=== PATIENT | male | born 1980 | race Two or more races ===

== ENCOUNTER 2017-11-13 16:05 | Inpatient (IN) | payer MEDICAID ==
[2017-11-13] VITALS (10 sets, daily range): BP systolic 106–128; BP diastolic 75–105
[~2017-11-13] VITALS: Ht 185.4 cm; Wt 81.6 kg
[2017-11-13] MEDS ORDERED: Pantoprazole Inj IV ONE (16:45)
[2017-11-13] MEDS ORDERED: Morphine Sulfate 4mg/ml Inj IVP ONE (17:30)
[2017-11-13] MEDS ORDERED: SandoSTATIN 50mcg Inj IVP ONE (17:30)
[2017-11-13] MEDS ORDERED: Octreotide Acetate 500 MCG in Sodium Chloride 500ML 499 ML IV SCH (17:30)
[2017-11-13 17:44] LABS: HEMATOCRIT 29.8 % (42.0-52.0); HEMOGLOBIN 10.3 G/DL (14.2-18.0); MEAN CORPUSCULAR VOLUME 94 FL (80-99); NEUTROPHILS % (AUTO) 86.2 % (45.0-75.0); PLATELET COUNT 67 K/UL (150-450); RED BLOOD COUNT 3.18 M/UL (4.70-6.10); RED CELL DISTRIBUTION WIDTH 18.4 % (11.6-14.8); WHITE BLOOD COUNT 3.6 K/UL (4.8-10.8)
[2017-11-13 17:45] LABS: BASOPHILS % (AUTO) 0.7 % (0.0-2.0); EOSINOPHILS % (AUTO) 1.5 % (0.0-3.0); LYMPHOCYTES % (AUTO) 7.5 % (20.0-45.0); MONOCYTES % (AUTO) 4.1 % (1.0-10.0)
[2017-11-13] MEDS ORDERED: cefTRIAXone 1 GM in NS 55 ML IVPB ONE (17:45)
[2017-11-13 17:51] LABS: INR 1.2 (0.9-1.1)
[2017-11-13 17:57] LABS: ANION GAP 9 mmol/L (5-15); BLOOD UREA NITROGEN 11 mg/dL (7-18); CALCIUM 8.8 MG/DL (8.5-10.1); CARBON DIOXIDE 27 MMOL/L (21-32); CHLORIDE 103 MMOL/L (98-107); POTASSIUM 3.5 MMOL/L (3.5-5.1); SODIUM 139 MMOL/L (136-145)
[2017-11-13 18:07] LABS: ALANINE AMINOTRANSFERASE 44 U/L (12-78); ALBUMIN 3.9 G/DL (3.4-5.0); ALBUMIN/GLOBULIN RATIO 1.3 (1.0-2.7); ALKALINE PHOSPHATASE 119 U/L (46-116); ASPARTATE AMINO TRANSFERASE 53 U/L (15-37); BILIRUBIN,TOTAL 6.1 MG/DL (0.2-1.0); CREATINE KINASE 64 U/L (26-308)
[2017-11-13 18:09] LABS: BILIRUBIN,DIRECT 1.4 MG/DL (0.0-0.3)
[2017-11-13] MEDS ORDERED: ZOFRAN4 M3 ORAL (19:36)
[2017-11-13] MEDS ORDERED: FERROUS SULFAT325 MG ORAL (19:36)
[2017-11-13] MEDS ORDERED: VIREAD300 MG ORAL (19:36)
[2017-11-13] MEDS ORDERED: LACTULOSE20 GM/301 ORAL (19:36)
[2017-11-13] MEDS ORDERED: PROTONIX IV40 MG IV (19:36)
[2017-11-13] MEDS ORDERED: AMBIEN5 MG ORAL (19:36)
[2017-11-13] MEDS ORDERED: PROPRANOLOL HCL20 MG ORAL (19:36)
[2017-11-13 19:57] LABS: APPEARANCE,URINE CLEAR; BILIRUBIN, URINE NEGATIVE (NEGATIVE); GLUCOSE, URINE (UA) 1+ (NEGATIVE); KETONES,URINE NEGATIVE (NEGATIVE); LEUKOCYTE ESTERASE ,URINE 1+ (NEGATIVE); NITRITE,URINE NEGATIVE (NEGATIVE); PH,URINE 5 (4.5-8.0); PROTEIN,URINE NEGATIVE (NEGATIVE); UROBILINOGEN,URINE 4 MG/DL (0.0-1.0)
[2017-11-13 19:59] LABS: COLOR,URINE AMBER
--- NOTE | 2017-11-13 20:41 | Emergency Room Report ---
History of Present Illness General Chief Complaint: Gastrointestinal Bleed Source: Patient Present Illness HPI This patient has a history of alpha-1 antitrypsin deficiency. This has caused him to develop cirrhosis and splenomegaly. 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 He has a history of esophageal varices and has undergone a TIPS procedure. He has recurrent GI bleeds related to his esophageal varices. He states that he just moved from [place] to [place]. He states that he has no physicians in [place]. He is in [place] visiting. Today he complains of pain in his abdomen that started last night. He states he also has had some bloody emesis and bright red blood rectally. He states that he has had a history of esophageal varices banding. He states that he has been advised to have his spleen removed. He states that he has been busy with life and just has not scheduled the surgery. He has no other complaints. Allergies: Coded Allergies: ADHESIVE TAPE (Verified Allergy, Unknown, 11/13/17) BEE VENOM PROTEIN (HONEY BEE) (Verified Allergy, Unknown, 11/13/17) PENICILLINS (Verified Allergy, Unknown, 11/13/17) Patient History Past Medical History: see triage record, other - cirrhosis, alpha-1 antitrypsin deficiency Past Surgical History: other - TIPS Social History: Denies: smoking, alcohol use, drug use Reviewed Nursing Documentation: PMH: Agreed; PSxH: Agreed Review of Systems All Other Systems: negative except mentioned in HPI Physical Exam Vital Signs Date Time Temp Pulse Resp B/P (MAP) Pulse Ox O2 Delivery O2 Flow Rate FiO2 11/13/17 16:07 97.7 111 18 133/90 96 Room Air 97.7 Sp02 EP Interpretation: reviewed, normal General Appearance: no apparent distress, alert, GCS 15, non-toxic Head: normocephalic, atraumatic Eyes: bilateral eye normal inspection, bilateral eye PERRL ENT: hearing grossly normal, normal pharynx, no angioedema, normal voice Neck: full range of motion, supple/symm/no masses Respiratory: chest non-tender, lungs clear, normal breath sounds, no respiratory distress, no retraction, no accessory muscle use, speaking full sentences Cardiovascular #1: regular rate, rhythm, no edema Gastrointestinal: normal bowel sounds, no guarding, no rebound, distended, tenderness - Diffusely Rectal: other - BRBPR Musculoskeletal: back normal, gait/station normal, normal range of motion, non- tender Neurologic: alert, oriented x3, responsive, motor strength/tone normal, sensory intact, speech normal Psychiatric: judgement/insight normal, memory normal, mood/affect normal, no suicidal/homicidal ideation Reflexes: 3+ bicep (R), 3+ bicep (L), 3+ tricep (R), 3+ tricep (L), 3+ knee (R) , 3+ knee (L) Skin: normal color, no rash, warm/dry, well hydrated Lymphatic: no adenopathy Medical Decision Making Diagnostic Impression: Primary Impression: Gastrointestinal hemorrhage Additional Impressions: Cirrhosis Splenomegaly Esophageal varices ER Course This patient presents with GI bleed. He has a known history of cirrhosis and has undergone a TIPS procedure. He has recurrent GI bleed secondary to esophageal varices. He was stable here in the emergency department with a normal blood pressure. I did give this patient octreotide bolus and put him on octreotide drip as a precaution. The patient states that he decompensates rapidly with his esophageal varices. Especially because he has the thrombocytopenia related to the splenomegaly. This patient is admitted to the ICU for concern that he has a GI bleed, thrombocytopenia and could deteriorate very rapidly. This patient is critically ill. This patient required complex medical decision- making, aggressive intervention, extensive laboratory workup and monitoring. Critical care time: 40 minutes. Laboratory Tests Test 11/13/17 17:09 11/13/17 18:24 White Blood Count 3.6 K/UL (4.8-10.8) L Red Blood Count 3.18 M/UL (4.70-6.10) L Hemoglobin 10.3 G/DL (14.2-18.0) L Hematocrit 29.8 % (42.0-52.0) L Mean Corpuscular Volume 94 FL (80-99) Mean Corpuscular Hemoglobin 32.5 PG (27.0-31.0) H Mean Corpuscular Hemoglobin Concent 34.8 G/DL (32.0-36.0) Red Cell Distribution Width 18.4 % (11.6-14.8) H Platelet Count 67 K/UL (150-450) L Mean Platelet Volume 6.0 FL (6.5-10.1) L Neutrophils (%) (Auto) 86.2 % (45.0-75.0) H Lymphocytes (%) (Auto) 7.5 % (20.0-45.0) L Monocytes (%) (Auto) 4.1 % (1.0-10.0) Eosinophils (%) (Auto) 1.5 % (0.0-3.0) Basophils (%) (Auto) 0.7 % (0.0-2.0) Prothrombin Time 12.2 SEC (9.30-11.50) H Prothrombin Time INR 1.2 (0.9-1.1) H PTT 23 SEC (23-33) Sodium Level 139 MMOL/L (136-145) Potassium Level 3.5 MMOL/L (3.5-5.1) Chloride Level 103 MMOL/L (98-107) Carbon Dioxide Level 27 MMOL/L (21-32) Anion Gap 9 mmol/L (5-15) Blood Urea Nitrogen 11 mg/dL (7-18) Creatinine 1.0 MG/DL (0.55-1.30) Estimate Glomerular Filtration Rate > 60 mL/min (>60) Glucose Level 156 MG/DL (74-106) H Calcium Level 8.8 MG/DL (8.5-10.1) Total Bilirubin 6.1 MG/DL (0.2-1.0) H Direct Bilirubin 1.4 MG/DL (0.0-0.3) H Aspartate Amino Transferase (AST) 53 U/L (15-37) H Alanine Aminotransferase (ALT) 44 U/L (12-78) Alkaline Phosphatase 119 U/L (46-116) H Total Creatine Kinase 64 U/L (26-308) Troponin I 0.000 ng/mL (0.000-0.056) Total Protein 6.9 G/DL (6.4-8.2) Albumin 3.9 G/DL (3.4-5.0) Globulin 3.0 g/dL Albumin/Globulin Ratio 1.3 (1.0-2.7) Lipase 114 U/L (73-393) Urine Color Bhavana Urine Appearance Clear Urine pH 5 (4.5-8.0) Urine Specific [place] 1.020 (1.005-1.035) Urine Protein Negative (NEGATIVE) Urine Glucose (UA) 1+ (NEGATIVE) H Urine Ketones Negative (NEGATIVE) Urine Occult Blood Negative (NEGATIVE) Urine Nitrite Negative (NEGATIVE) Urine Bilirubin Negative (NEGATIVE) Urine Ictotest Positive Urine Urobilinogen 4 MG/DL (0.0-1.0) H Urine Leukocyte Esterase 1+ (NEGATIVE) H Urine RBC 0-2 /HPF (0 - 0) H Urine WBC 2-4 /HPF (0 - 0) Urine Squamous Epithelial Cells None /LPF (NONE/OCC) Urine Bacteria Few /HPF (NONE) EKG Diagnostic Results Rate: normal Rhythm: NSR ST Segments: no acute changes Rhythm Strip Diag. Results EP Interpretation: yes Rate: 90's Rhythm: NSR, no PVC's, no ectopy CT/MRI/US Diagnostic Results CT/MRI/US Diagnostic Results : Imaging Test Ordered: US Abdomen, CT abd/pelvis Impression Splenomegaly, inhomogenous liver, shut patent. See official report. CT abd/pelvis: Cirrhosis/chronic liver disease with poor stigmata of portal hypertension including splenomegaly and multiple portosystemic varices. TIPS noted. Patency of the TIPS is not elucidated on this exam. Evidence of previous thromboembolic coil treatment of varices. Gallstones Hypodensity in the spleen somewhat wedge-shaped may be an infarct. Radiopaque foci within the rectum. Query foreign body Other incidental findings as above Last Vital Signs Date Time Temp Pulse Resp B/P (MAP) Pulse Ox O2 Delivery O2 Flow Rate FiO2 11/13/17 19:20 93 15 106/75 97 Room Air 11/13/17 18:30 97.9 97.9 Disposition: ADMITTED INPATIENT Condition: Critical Referrals: NOT CHOSEN IPA/,REFERRING (PCP) GAUDENCIO CULVER D.O. November 13, 2017 20:41
[2017-11-13] MEDS ORDERED: FUROSEMIDE20 M1 ORAL (20:43)
[2017-11-13] MEDS: Octreotide Acetate 500 MCG in Sodium Chloride 500ML 499 ML IV SCH (20:45)
[2017-11-13] MEDS ORDERED: Isovue-300 100ml vial INJ PRN (20:45)
[2017-11-13] MEDS ORDERED: Morphine Sulfate 4mg/ml Inj IVP PRN (20:45)
[2017-11-14] VITALS (11 sets, daily range): BP systolic 107–136; BP diastolic 68–87
[2017-11-14] MEDS: Pantoprazole 80 MG in NS 250 ML IV SCH ×3 (01:34→17:44)
[2017-11-14] MEDS ORDERED: DiphenhydrAMINE 50mg/ml Inj IVP PRN ×2 (03:30→12:15)
[2017-11-14] MEDS: D5NS 1,000 ML IV SCH ×3 (04:45→22:54)
[2017-11-14] MEDS: Morphine Sulfate 4mg/ml Inj IVP PRN ×5 (04:46→21:15)
[2017-11-14 06:11] LABS: HEMATOCRIT 24.4 % (42.0-52.0); HEMOGLOBIN 8.9 G/DL (14.2-18.0); MEAN CORPUSCULAR VOLUME 94 FL (80-99); PLATELET COUNT 50 K/UL (150-450); RED CELL DISTRIBUTION WIDTH 18.5 % (11.6-14.8)
[2017-11-14 06:16] LABS: ANION GAP 8 mmol/L (5-15); BLOOD UREA NITROGEN 10 mg/dL (7-18); CALCIUM 8.9 MG/DL (8.5-10.1); CARBON DIOXIDE 26 MMOL/L (21-32); CHLORIDE 104 MMOL/L (98-107); CREATININE 0.8 MG/DL (0.55-1.30); POTASSIUM 3.8 MMOL/L (3.5-5.1); SODIUM 138 MMOL/L (136-145)
[2017-11-14 06:22] LABS: WHITE BLOOD COUNT 1.7 K/UL (4.8-10.8)
[2017-11-14 06:27] LABS: INR 1.2 (0.9-1.1)
[2017-11-14] MEDS: Octreotide Acetate 500 MCG in Sodium Chloride 500ML 499 ML IV SCH ×2 (06:45→17:08)
--- NOTE | 2017-11-14 07:46 | General Progress Note ---
Assessment/Plan Assessment/Plan [id number] Job ID -- thank you for consultation! Subjective Date patient seen: November 14, 2017 Allergies: Coded Allergies: ADHESIVE TAPE (Verified Allergy, Unknown, 11/13/17) BEE VENOM PROTEIN (HONEY BEE) (Verified Allergy, Unknown, 11/13/17) PENICILLINS (Verified Allergy, Unknown, 11/13/17) Objective Last 24 Hour Vital Signs Date Time Temp Pulse Resp B/P (MAP) Pulse Ox O2 Delivery O2 Flow Rate FiO2 11/14/17 06:37 98.2 87 20 125/81 98 Room Air 98.2 11/14/17 04:00 98.1 85 20 123/81 98 Room Air 98.1 11/14/17 03:46 83 11/14/17 00:00 98.4 87 18 132/87 99 Room Air 98.4 11/13/17 23:43 208.2 91 15 126/81 100 Room Air 208.2 11/13/17 23:17 208.2 91 15 126/81 100 Room Air 208.2 11/13/17 21:07 208.2 93 15 118/77 100 Room Air 208.2 11/13/17 21:06 97.9 11/13/17 19:30 97.9 98 15 122/76 97 Room Air 97.9 11/13/17 19:20 93 15 106/75 97 Room Air 11/13/17 19:00 91 14 117/89 97 Room Air 11/13/17 18:30 97.9 97 11 121/99 100 Room Air 97.9 11/13/17 18:01 97.7 11/13/17 18:00 99 14 122/99 100 Room Air 11/13/17 17:30 97.6 95 10 128/105 100 Room Air 97.6 11/13/17 17:00 98 18 127/94 100 Room Air 11/13/17 16:30 97.7 99 13 117/92 96 Room Air 97.7 11/13/17 16:07 97.7 111 18 133/90 96 Room Air 97.7 Intake and Output 11/13/17 11/14/17 19:00 07:00 Intake Total 1000 ml 55 ml Balance 1000 ml 55 ml Intake Oral 0 ml IV Total 1000 ml 55 ml Laboratory Tests 11/13/17 17:09: White Blood Count 3.6L, Red Blood Count 3.18L, Hemoglobin 10.3L, Hematocrit 29.8L, Mean Corpuscular Volume 94, Mean Corpuscular Hemoglobin 32.5H, Mean Corpuscular Hemoglobin Concent 34.8, Red Cell Distribution Width 18.4H, Platelet Count 67L, Mean Platelet Volume 6.0L, Neutrophils (%) (Auto) 86.2H, Lymphocytes (%) (Auto) 7.5L, Monocytes (%) (Auto) 4.1, Eosinophils (%) (Auto) 1.5, Basophils (%) (Auto) 0.7, Prothrombin Time 12.2H, Prothromb Time International Ratio 1.2H, Activated Partial Thromboplast Time 23, Sodium Level 139, Potassium Level 3.5, Chloride Level 103, Carbon Dioxide Level 27, Anion Gap 9, Blood Urea Nitrogen 11, Creatinine 1.0, Estimat Glomerular Filtration Rate > 60, Glucose Level 156H, Calcium Level 8.8, Total Bilirubin 6.1H, Direct Bilirubin 1.4H, Aspartate Amino Transf (AST/SGOT) 53H, Alanine Aminotransferase (ALT/SGPT) 44, Alkaline Phosphatase 119H, Total Creatine Kinase 64, Troponin I 0.000, Total Protein 6.9, Albumin 3.9, Globulin 3.0, Albumin/Globulin Ratio 1.3 , Lipase 114 11/13/17 18:24: Urine Color Bhavana, Urine Appearance Clear, Urine pH 5, Urine Specific [place] 1.020, Urine Protein Negative, Urine Glucose (UA) 1+H, Urine Ketones Negative, Urine Occult Blood Negative, Urine Nitrite Negative, Urine Bilirubin Negative, Urine Ictotest Positive, Urine Urobilinogen 4H, Urine Leukocyte Esterase 1+H, Urine RBC 0-2H, Urine WBC 2-4, Urine Squamous Epithelial Cells None, Urine Bacteria Few 11/14/17 04:40: White Blood Count 1.7#*L, Red Blood Count 2.60L, Hemoglobin 8.9L, Hematocrit 24.4L, Mean Corpuscular Volume 94, Mean Corpuscular Hemoglobin 34.0H, Mean Corpuscular Hemoglobin Concent 36.3H, Red Cell Distribution Width 18.5H, Platelet Count 50L, Mean Platelet Volume 6.1L, Neutrophils (%) (Auto) , Lymphocytes (%) (Auto) , Monocytes (%) (Auto) , Eosinophils (%) (Auto) , Basophils (%) (Auto) , Prothrombin Time 12.5H, Prothromb Time International Ratio 1.2H, Activated Partial Thromboplast Time 28, Sodium Level 138, Potassium Level 3.8, Chloride Level 104, Carbon Dioxide Level 26, Anion Gap 8, Blood Urea Nitrogen 10, Creatinine 0.8, Estimat Glomerular Filtration Rate > 60, Glucose Level 99, Calcium Level 8.9, Neutrophils % (Manual) [Pending], Lymphocytes % ( Manual) [Pending], Platelet Estimate [Pending], Platelet Morphology [Pending], [id number] [Pending] Height (Feet): 6 Height (Inches): 1.00 Weight (Pounds): 180 Marshall Dhillon MD November 14, 2017 07:46
[2017-11-14] MEDS ORDERED: Heparin 2000 units/Ns 1000ml INJ PRN (09:45)
[2017-11-14] MEDS ORDERED: Lidocaine 1% Plain 30 ml INJ PRN (09:45)
[2017-11-14] MEDS: DiphenhydrAMINE 50mg/ml Inj IVP PRN ×4 (09:57→21:17)
[2017-11-14] MEDS ORDERED: TBO-Filgrastim 300 mcg/0.5ml SQ SCH (10:00)
--- NOTE | 2017-11-14 10:01 | Diagnostic Imaging Report ---
Indication:Abdominal pain Technique: Grayscale and duplex Doppler imaging of the abdomen performed. Comparison: Concurrent CT Findings: There is nodularity of the liver surface with heterogeneity. There is a TIPS present which was not formally interrogated but appears grossly patent by color flow and Doppler. No ascites seen. The spleen is 16 cm. Gallstones are present. Kidneys are unremarkable bilaterally. There is no hydronephrosis. The aorta and pancreas are not seen. IMPRESSION: Chronic liver disease/cirrhosis. TIPS noted and grossly patent. Portal hypertension and splenomegaly.
[2017-11-14 10:28] LABS: FERRITIN 97 NG/ML (8-388); LACTATE DEHYDROGENASE 249 U/L (81-234)
[2017-11-14 10:35] LABS: % IRON SATURATION 61 % (15-50); IRON 152 ug/dL (50-175); TOTAL IRON BINDING CAPACITY 251 ug/dL (250-450)
[2017-11-14] MEDS: Lactulose 20gm/30ml UDC ORAL SCH ×3 (10:45→17:43)
[2017-11-14] MEDS ORDERED: Zolpidem 5mg tab ORAL PRN (10:45)
--- NOTE | 2017-11-14 10:46 | Pre-Procedure Note/Attestation ---
Pre-Procedure Note/Attestation Complete Prior to Procedure Planned Procedure: not applicable Procedure Narrative: egd Indications for Procedure Pre-Operative Diagnosis: gib Attestation I attest that I discussed the nature of the procedure; its benefits; risks and complications; and alternatives (and the risks and benefits of such alternatives ), prior to the procedure, with the patient (or the patient's legal service liaison representative). I attest that, if there was a reasonable possibility of needing a blood transfusion, the patient (or the patient's legal service liaison representative) was given the [facility] standardized written summary, pursuant to the [place]man Anita Blood Safety Act ([place] Health and Safety Code # 1645, as amended). I attest that I re-evaluated the patient just prior to the surgery and that there has been no change in the patient's H&P, except as documented below: Santiago Sandoval MD November 14, 2017 10:46
--- NOTE | 2017-11-14 10:58 | GI Initial Consult Note ---
History of Present Illness General Date patient seen: November 14, 2017 Time patient seen: 10:55 Reason for Hospitalization: Gastrointestinal Bleed Referring physician: MELISSA Reason for Consultation: UGIB Present Illness HPI This patient has a history of alpha-1 antitrypsin deficiency. This has caused him to develop cirrhosis and splenomegaly. 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 He has a history of esophageal varices and has undergone a TIPS procedure. He has recurrent GI bleeds related to his esophageal varices. He states that he just moved from [place] to [place]. He states that he has no physicians in [place]. He is in [place] visiting. Today he complains of pain in his abdomen that started last night. He states he also has had some bloody emesis and bright red blood rectally. He states that he has had a history of esophageal varices banding. He states that he has been advised to have his spleen removed. He states that he has been busy with life and just has not scheduled the surgery. He has no other complaints. Home Meds Reported Medications Furosemide* (LASIX*) 20 Mg Tablet, 20 MG ORAL DAILY, TAB 11/13/17 Ondansetron* (ZOFRAN*) 4 Mg Tablet, 4 MG ORAL PRN PRN for Nausea & Vomiting, TAB 11/13/17 Ferrous Sulfate* (FERROUS SULFATE*) 325 Mg Tablet, 325 MG ORAL DAILY, TAB 11/13/17 Zolpidem Tartrate* (AMBIEN*) 5 Mg Tablet, 5 MG ORAL BEDTIME, TAB PRN INSOMNIA 11/13/17 Propranolol Hcl* (INDERAL*) 20 Mg Tablet, 20 MG ORAL THREE TIMES A DAY, TAB 11/13/17 Pantoprazole* (PROTONIX*) 40 Mg Vial, 40 MG IV DAILY, VIAL 11/13/17 Lactulose (LACTULOSE*) 20 Gm/30 Ml Solution, 30 ML ORAL THREE TIMES A DAY, ML 11/13/17 Tenofovir Disoproxil Fumarate* (VIREAD*) 300 Mg Tablet, 300 MG ORAL DAILY, TAB 11/13/17 Med list reviewed/reconciled: Yes Allergies: Coded Allergies: ADHESIVE TAPE (Verified Allergy, Unknown, 11/13/17) BEE VENOM PROTEIN (HONEY BEE) (Verified Allergy, Unknown, 11/13/17) PENICILLINS (Verified Allergy, Unknown, 11/13/17) Patient History History Provided By: Patient PMH Narrative Past Medical History: see triage record, other - cirrhosis, alpha-1 antitrypsin deficiency Past Surgical History: other - TIPS Social History: Denies: smoking, alcohol use, drug use Reviewed Nursing Documentation: PMH: Agreed; PSxH: Agreed Social History: Denies: smoking, alcohol use, drug use, other Review of Systems All Other Systems: negative except mentioned in HPI Physical Exam Vital Signs Date Time Temp Pulse Resp B/P (MAP) Pulse Ox O2 Delivery O2 Flow Rate FiO2 11/13/17 16:07 97.7 111 18 133/90 96 Room Air 97.7 Sp02 EP Interpretation: reviewed, normal Labs Laboratory Tests Test 11/13/17 17:09 11/13/17 18:24 11/14/17 04:40 11/14/17 09:20 White Blood Count 3.6 K/UL (4.8-10.8) L 1.7 K/UL (4.8-10.8) #*L Red Blood Count 3.18 M/UL (4.70-6.10) L 2.60 M/UL (4.70-6.10) L Hemoglobin 10.3 G/DL (14.2-18.0) L 8.9 G/DL (14.2-18.0) L Hematocrit 29.8 % (42.0-52.0) L 24.4 % (42.0-52.0) L Mean Corpuscular Volume 94 FL (80-99) 94 FL (80-99) Mean Corpuscular Hemoglobin 32.5 PG (27.0-31.0) H 34.0 PG (27.0-31.0) H Mean Corpuscular Hemoglobin Concent 34.8 G/DL (32.0-36.0) 36.3 G/DL (32.0-36.0) H Red Cell Distribution Width 18.4 % (11.6-14.8) H 18.5 % (11.6-14.8) H Platelet Count 67 K/UL (150-450) L 50 K/UL (150-450) L Mean Platelet Volume 6.0 FL (6.5-10.1) L 6.1 FL (6.5-10.1) L Neutrophils (%) (Auto) 86.2 % (45.0-75.0) H % (45.0-75.0) Lymphocytes (%) (Auto) 7.5 % (20.0-45.0) L % (20.0-45.0) Monocytes (%) (Auto) 4.1 % (1.0-10.0) % (1.0-10.0) Eosinophils (%) (Auto) 1.5 % (0.0-3.0) % (0.0-3.0) Basophils (%) (Auto) 0.7 % (0.0-2.0) % (0.0-2.0) Prothrombin Time 12.2 SEC (9.30-11.50) H 12.5 SEC (9.30-11.50) H Prothromb Time International Ratio 1.2 (0.9-1.1) H 1.2 (0.9-1.1) H Activated Partial Thromboplast Time 23 SEC (23-33) 28 SEC (23-33) Sodium Level 139 MMOL/L (136-145) 138 MMOL/L (136-145) Potassium Level 3.5 MMOL/L (3.5-5.1) 3.8 MMOL/L (3.5-5.1) Chloride Level 103 MMOL/L (98-107) 104 MMOL/L (98-107) Carbon Dioxide Level 27 MMOL/L (21-32) 26 MMOL/L (21-32) Anion Gap 9 mmol/L (5-15) 8 mmol/L (5-15) Blood Urea Nitrogen 11 mg/dL (7-18) 10 mg/dL (7-18) Creatinine 1.0 MG/DL (0.55-1.30) 0.8 MG/DL (0.55-1.30) Estimat Glomerular Filtration Rate > 60 mL/min (>60) > 60 mL/min (>60) Glucose Level 156 MG/DL (74-106) H 99 MG/DL (74-106) Calcium Level 8.8 MG/DL (8.5-10.1) 8.9 MG/DL (8.5-10.1) Total Bilirubin 6.1 MG/DL (0.2-1.0) H Direct Bilirubin 1.4 MG/DL (0.0-0.3) H Aspartate Amino Transf (AST/SGOT) 53 U/L (15-37) H Alanine Aminotransferase (ALT/SGPT) 44 U/L (12-78) Alkaline Phosphatase 119 U/L (46-116) H Total Creatine Kinase 64 U/L (26-308) Troponin I 0.000 ng/mL (0.000-0.056) Total Protein 6.9 G/DL (6.4-8.2) Albumin 3.9 G/DL (3.4-5.0) Globulin 3.0 g/dL Albumin/Globulin Ratio 1.3 (1.0-2.7) Lipase 114 U/L (73-393) Urine Color Bhavana Urine Appearance Clear Urine pH 5 (4.5-8.0) Urine Specific [place] 1.020 (1.005-1.035) Urine Protein Negative (NEGATIVE) Urine Glucose (UA) 1+ (NEGATIVE) H Urine Ketones Negative (NEGATIVE) Urine Occult Blood Negative (NEGATIVE) Urine Nitrite Negative (NEGATIVE) Urine Bilirubin Negative (NEGATIVE) Urine Ictotest Positive Urine Urobilinogen 4 MG/DL (0.0-1.0) H Urine Leukocyte Esterase 1+ (NEGATIVE) H Urine RBC 0-2 /HPF (0 - 0) H Urine WBC 2-4 /HPF (0 - 0) Urine Squamous Epithelial Cells None /LPF (NONE/OCC) Urine Bacteria Few /HPF (NONE) Differential Total Cells Counted 100 Neutrophils % (Manual) 58 % (45-75) Lymphocytes % (Manual) 28 % (20-45) Monocytes % (Manual) 4 % (1-10) Eosinophils % (Manual) 8 % (0-3) H Basophils % (Manual) 2 % (0-2) Band Neutrophils 0 % (0-8) Platelet Estimate Decreased L Platelet Morphology Normal Hypochromasia 2+ Anisocytosis 2+ Spherocytes 3+ [id number] Pending Reticulocyte Count Pending Fibrinogen 219 mg/dL (200-400) Iron Level 152 ug/dL (50-175) Total Iron Binding Capacity 251 ug/dL (250-450) Percent Iron Saturation 61 % (15-50) H Unsaturated Iron Binding 99 ug/dL (112-346) L Ferritin 97 NG/ML (8-388) Lactate Dehydrogenase 249 U/L (81-234) H Vitamin B12 Level 1980 PG/ML (193-986) H Folate 16.5 NG/ML (8.6-58.9) Thyroid Stimulating Hormone (TSH) 0.628 uiU/mL (0.358-3.740) General Appearance: well appearing, no apparent distress, alert Head: normocephalic EENT: PERRL/EOMI, normal ENT inspection Neck: supple Respiratory: normal breath sounds, no respiratory distress Cardiovascular: normal rate Gastrointestinal: normal inspection, non tender, soft, normal bowel sounds, non -distended Rectal: deferred Genitourinary: deferred Musculoskeletal: normal inspection, back normal Neurologic: normal inspection, alert, oriented x3, responsive Psychiatric: normal inspection, judgement/insight normal, memory normal Skin: normal inspection, normal color, no rash, warm/dry, palpation normal, well hydrated Lymphatic: normal inspection, no adenopathy Current Medications Current Medications Medications (Trade) Dose Ordered Sig/Roberto Route PRN Reason Start Time Stop Time Status Last Admin Dose Admin Chlorhexidine Gluconate (Lorie-Hex 2%) 1 applic DAILY@2000 TOPIC 11/14/17 20:00 12/14/17 19:59 Dextrose/Sodium Chloride 1,000 ml @ 100 mls/hr Q10H IV 11/14/17 04:00 12/14/17 03:59 11/14/17 04:45 Diphenhydramine HCl (Benadryl) 25 mg Q4H PRN IVP Itching 11/14/17 09:45 12/14/17 09:44 11/14/17 09:57 Ferrous Sulfate (Feosol) 325 mg DAILY ORAL 11/14/17 10:45 12/14/17 10:44 UNV Furosemide (Lasix) 20 mg DAILY ORAL 11/14/17 10:45 12/14/17 10:44 UNV Heparin Sodium/ Sodium Chloride (Heparin 2000 units/Ns 1000ml premix) 2,000 unit ONCE PRN INJ PICC PLACEMENT 11/14/17 09:45 11/14/17 23:59 Iopamidol (Isovue-300 100ml) 100 ml NOW PRN INJ Radiology Procedure 11/13/17 20:45 11/15/17 20:44 Lactulose (Cephulac) 20 gm THREE TIMES A DAY ORAL 11/14/17 10:45 12/14/17 10:44 UNV Lidocaine HCl (Xylocaine 1% 30ml) 30 ml ONCE PRN INJ PICC PLACEMENT 11/14/17 09:45 11/14/17 23:59 Morphine Sulfate (Morphine Sulfate) 4 mg Q4H PRN IVP For Pain 11/14/17 03:30 11/21/17 03:29 11/14/17 09:13 Octreotide Acetate 500 mcg/ Sodium Chloride 500 ml @ 50 mls/hr Q10H IV 11/13/17 20:45 12/13/17 20:44 11/14/17 06:45 Ondansetron HCl (Zofran) 4 mg Q6H PRN IVP Nausea & Vomiting 11/14/17 03:30 12/14/17 03:29 Pantoprazole 80 mg/Sodium Chloride 250 ml @ 25 mls/hr Q10H IV 11/13/17 22:00 12/13/17 21:59 11/14/17 09:11 Propranolol HCl (Inderal) 20 mg THREE TIMES A DAY ORAL 11/14/17 13:00 12/14/17 12:59 UNV Tbo-Filgrastim (Granix) 300 mcg ONCE SQ 11/14/17 10:00 11/14/17 12:00 11/14/17 10:32 Tenofovir Disoproxil Fumarate (Viread) 300 mg DAILY ORAL 11/14/17 10:45 12/14/17 10:44 UNV Zolpidem Tartrate (Ambien) 5 mg BEDTIME PRN ORAL Insomnia 11/14/17 10:45 11/21/17 10:44 UNV GI: Plan Problems: (1) [id number] deficiency (2) Cirrhosis (3) Gastrointestinal hemorrhage (4) Esophageal varices Plan EGD scheduled today. - maintain NPO + IVFs cont ppi gtt octreotide gtt prn transfusions lactulose propranolol will follow with additional recs after endoscopy Discussed with Dr. Sandoval. Thank you for this patient referral, we will follow. The patient was seen and examined at bedside and all new and available data was reviewed in the patients chart. I agree with the above findings, impression and plan. (Patient seen earlier today. Signature stamp does not reflect patient encounter time.). - MD Marilyn ConnollyVal[facility]wise [facility] MaryvaleKenny CITRUS PEELER November 14, 2017 10:58
[2017-11-14] MEDS ORDERED: fentaNYL 100 mcg/2 mL IV PRN (12:15)
[2017-11-14] MEDS ORDERED: Atropine Inj 1mg/10ml Syr IV PRN (12:15)
[2017-11-14] MEDS ORDERED: Midazolam 2mg/2ml Inj IVP PRN (12:15)
--- NOTE | 2017-11-14 12:15 | Anethesia Preoperative Eval ---
Anesthesia Pre-op PMH/ROS General Date of Evaluation: November 14, 2017 Time of Evaluation: 12:00 Anesthesiologist: laura ASA Score: ASA 3 Mallampati Score Class I : Soft palate, uvula, fauces, pillars visible Class II: Soft palate, uvula, fauces visible Class III: Soft palate, base of uvula visible Class IV: Only hard plate visible Mallampati Classification: Class II Surgeon: yoselyn Diagnosis: gi bleed Surgical Procedure: egd Anesthesia History: none Family History: no anesthesia problems Allergies: Coded Allergies: ADHESIVE TAPE (Verified Allergy, Unknown, 11/13/17) BEE VENOM PROTEIN (HONEY BEE) (Verified Allergy, Unknown, 11/13/17) PENICILLINS (Verified Allergy, Unknown, 11/13/17) Medications: see eMAR Past Medical History Gastrointestinal/Genitourinary: Reports: other - cirrhosis, Hematology/Immune: Reports: other - gniln-5-yxaggvyaymg deficiency Anesthesia Pre-op Phys. Exam Physician Exam Last Vital Signs Date Time Temp Pulse Resp B/P (MAP) Pulse Ox O2 Delivery O2 Flow Rate FiO2 11/14/17 08:00 74 11/14/17 08:00 97.7 18 129/76 98 Room Air 97.7 Constitutional: NAD Neurologic: CN 2-12 intact Cardiovascular: RRR Respiratory: CTA Gastrointestinal: S/NT/ND Airway Exam Mallampati Score: Class II MO: full Neck: supple TMD: 2fb ROM: full Teeth: intact Anesthesia Pre-op A/P Labs Hematology Test 11/13/17 17:09 11/14/17 04:40 11/14/17 09:20 White Blood Count 3.6 K/UL (4.8-10.8) L 1.7 K/UL (4.8-10.8) #*L Red Blood Count 3.18 M/UL (4.70-6.10) L 2.60 M/UL (4.70-6.10) L Hemoglobin 10.3 G/DL (14.2-18.0) L 8.9 G/DL (14.2-18.0) L Hematocrit 29.8 % (42.0-52.0) L 24.4 % (42.0-52.0) L Mean Corpuscular Volume 94 FL (80-99) 94 FL (80-99) Mean Corpuscular Hemoglobin 32.5 PG (27.0-31.0) H 34.0 PG (27.0-31.0) H Mean Corpuscular Hemoglobin Concent 34.8 G/DL (32.0-36.0) 36.3 G/DL (32.0-36.0) H Red Cell Distribution Width 18.4 % (11.6-14.8) H 18.5 % (11.6-14.8) H Platelet Count 67 K/UL (150-450) L 50 K/UL (150-450) L Mean Platelet Volume 6.0 FL (6.5-10.1) L 6.1 FL (6.5-10.1) L Neutrophils (%) (Auto) 86.2 % (45.0-75.0) H % (45.0-75.0) Lymphocytes (%) (Auto) 7.5 % (20.0-45.0) L % (20.0-45.0) Monocytes (%) (Auto) 4.1 % (1.0-10.0) % (1.0-10.0) Eosinophils (%) (Auto) 1.5 % (0.0-3.0) % (0.0-3.0) Basophils (%) (Auto) 0.7 % (0.0-2.0) % (0.0-2.0) Differential Total Cells Counted 100 Neutrophils % (Manual) 58 % (45-75) Lymphocytes % (Manual) 28 % (20-45) Monocytes % (Manual) 4 % (1-10) Eosinophils % (Manual) 8 % (0-3) H Basophils % (Manual) 2 % (0-2) Band Neutrophils 0 % (0-8) Platelet Estimate Decreased L Platelet Morphology Normal Hypochromasia 2+ Anisocytosis 2+ Spherocytes 3+ Reticulocyte Count Pending Coagulation Test 11/13/17 17:09 11/14/17 04:40 11/14/17 09:20 Prothrombin Time 12.2 SEC (9.30-11.50) H 12.5 SEC (9.30-11.50) H Prothromb Time International Ratio 1.2 (0.9-1.1) H 1.2 (0.9-1.1) H Activated Partial Thromboplast Time 23 SEC (23-33) 28 SEC (23-33) Fibrinogen 219 mg/dL (200-400) Chemistry Test 11/13/17 17:09 11/14/17 04:40 11/14/17 09:20 Sodium Level 139 MMOL/L (136-145) 138 MMOL/L (136-145) Potassium Level 3.5 MMOL/L (3.5-5.1) 3.8 MMOL/L (3.5-5.1) Chloride Level 103 MMOL/L (98-107) 104 MMOL/L (98-107) Carbon Dioxide Level 27 MMOL/L (21-32) 26 MMOL/L (21-32) Anion Gap 9 mmol/L (5-15) 8 mmol/L (5-15) Blood Urea Nitrogen 11 mg/dL (7-18) 10 mg/dL (7-18) Creatinine 1.0 MG/DL (0.55-1.30) 0.8 MG/DL (0.55-1.30) Estimat Glomerular Filtration Rate > 60 mL/min (>60) > 60 mL/min (>60) Glucose Level 156 MG/DL (74-106) H 99 MG/DL (74-106) Calcium Level 8.8 MG/DL (8.5-10.1) 8.9 MG/DL (8.5-10.1) Total Bilirubin 6.1 MG/DL (0.2-1.0) H Direct Bilirubin 1.4 MG/DL (0.0-0.3) H Aspartate Amino Transf (AST/SGOT) 53 U/L (15-37) H Alanine Aminotransferase (ALT/SGPT) 44 U/L (12-78) Alkaline Phosphatase 119 U/L (46-116) H Total Creatine Kinase 64 U/L (26-308) Troponin I 0.000 ng/mL (0.000-0.056) Total Protein 6.9 G/DL (6.4-8.2) Albumin 3.9 G/DL (3.4-5.0) Globulin 3.0 g/dL Albumin/Globulin Ratio 1.3 (1.0-2.7) Lipase 114 U/L (73-393) Fmicw-6-Gfhnojjnmun Pending Iron Level 152 ug/dL (50-175) Total Iron Binding Capacity 251 ug/dL (250-450) Percent Iron Saturation 61 % (15-50) H Unsaturated Iron Binding 99 ug/dL (112-346) L Ferritin 97 NG/ML (8-388) Lactate Dehydrogenase 249 U/L (81-234) H Vitamin B12 Level 1980 PG/ML (193-986) H Folate 16.5 NG/ML (8.6-58.9) Thyroid Stimulating Hormone (TSH) 0.628 uiU/mL (0.358-3.740) Risk Assessment & Plan Assessment: asa3 Plan: mac Status Change Before Surgery: No Pre-Antibiotics Drug: na Lian Lee MD November 14, 2017 12:15
[2017-11-14] MEDS ORDERED: NS 500ML IVPB ONE (12:20)
--- NOTE | 2017-11-14 12:34 | Endoscopy Procedure Note ---
Endoscopy Procedure Note General Indication for Procedure: anemia Procedures Performed: EGD Operative Findings/Diagnosis: gastritis Specimen: yes Pt Tolerated Procedure Well: Yes Estimated Blood Loss: none Anesthesia Anesthesiologist: laura Anesthesia: MAC Inserted Devices Implant(s) used?: No GI Core Measures 50 yrs or older w/o bx or poly: Not Applicable 10yrs. F/U not recommended: Not Applicable Santiago Sandoval MD November 14, 2017 12:34
--- NOTE | 2017-11-14 13:06 | Immediate Post-Op Evaluation ---
Immediate Post-Op Evalulation Immediate Post-Op Evalulation Procedure: egd Date of Evaluation: November 14, 2017 Time of Evaluation: 12:51 IV Fluids: 100ml 0.9ns Blood Products: none Estimated Blood Loss: negligible Blood Pressure Systolic: 116 Blood Pressure Diastolic: 69 Pulse Rate: 82 Respiratory Rate: 18 O2 Sat by Pulse Oximetry: 100 Temperature (Fahrenheit): 97.5 Pain Score (1-10): 0 Nausea: No Vomiting: No Complications none Patient Status: awake, reacts, patent Hydration Status: adequate Drug: Lian Araiza MD November 14, 2017 13:06
--- NOTE | 2017-11-14 13:08 | 48 Hour Post Anesthesia Eval ---
Post Anesthesia Evaluation Procedure: egd Date of Evaluation: November 14, 2017 Time of Evaluation: 12:53 Blood Pressure Systolic: 109 0: 68 Pulse Rate: 76 Respiratory Rate: 18 Temperature (Fahrenheit): 97.5 O2 Sat by Pulse Oximetry: 100 Airway: patent Nausea: No Vomiting: No Pain Intensity: 0 Hydration Status: adequate Cardiopulmonary Status: stable Mental Status/LOC: patient returned to baseline Post-Anesthesia Complications: none Follow-up care needed: N/A Lian Lee MD November 14, 2017 13:08
[2017-11-14] MEDS: Propranolol 10mg tab ORAL SCH ×2 (13:34→17:44)
--- NOTE | 2017-11-14 14:00 | Diagnostic Imaging Report ---
Indication: Abdominal pain Technique: Continuous helical transaxial imaging of the abdomen and pelvis was obtained from the lung bases to the pubic symphysis during intravenous contrast administration. Coronal 2-D reformats were also obtained. Study obtained in a Siemens sensation [address] Automatic Exposure Control was utilized. Total Dose length Product (DLP): [address] Dose Index Volume (CTDIvol): 15.9 mGy Comparison: None Findings: There is minimal platelike atelectasis at the right lung base. There is a TIPS present. There is severe nodularity of the liver. The spleen is enlarged. 3 cm wedge-shaped hypodensity in the periphery of the spleen may be an infarct or laceration if there is history of trauma. Metallic coils noted just anterior to the aorta in the upper abdomen. These are likely thromboembolic coils placed within portosystemic varices. There are multiple varices present in the splenic hilum and upper abdomen surrounding the stomach. Gallstones are present. There is no free air or free fluid. There is mild thickening of the wall the urinary bladder. Some radiopaque foci noted within the rectum. Not certain the nature of this. These may be foreign bodies. There is narrowing of intervertebral discs and accompanying endplate osteophyte formation. Hypertrophied facet joints also demonstrated. IMPRESSION: Cirrhosis/chronic liver disease with poor stigmata of portal hypertension including splenomegaly and multiple portosystemic varices. TIPS noted. Patency of the TIPS is not elucidated on this exam. Evidence of previous thromboembolic coil treatment of varices. Gallstones Hypodensity in the spleen somewhat wedge-shaped may be an infarct. Radiopaque foci within the rectum. Query foreign body Other incidental findings as above The CT scanner at [facility] is accredited by the [employer] and the scans are performed using dose optimization techniques as appropriate to a performed exam including Automatic Exposure control.
--- NOTE | 2017-11-14 14:30 | History and Physical Report ---
DATE OF ADMISSION: 11/13/2017 SOURCE OF INFORMATION: The patient and EMR. HISTORY OF PRESENT ILLNESS: The patient is a pleasant 37-year-old with history of cirrhosis secondary to alpha-1 antitrypsin deficiency. The patient reported vomitus of the gross arsh red blood at least three to five times prior to the evaluation in the emergency room. In addition, the patient is complaining of hematochezia at least three times, pure red blood. At the time of evaluation, the patient denies any chest pain or shortness of breath. Denies any nausea or vomitus. Denies any abdominal pain. REVIEW OF SYSTEMS: All 12 elements of review of systems reviewed as mentioned above. Pertinent positive and negative as mentioned above. ALLERGIES: Penicillin. FAMILY HISTORY: Reviewed and noncontributory. SOCIAL HISTORY: The patient denies history of illicit drug abuse, smoking, or alcohol abuse. 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 PAST MEDICAL HISTORY: History of alpha-1 antitrypsin deficiency - familial, and HIV. PAST SURGICAL HISTORY: TIPS placement and appendectomy. PHYSICAL EXAMINATION: VITAL SIGNS: Blood pressure 120/80, temperature 98.1, pulse oximetry 98% on room air, and respiratory rate 18. HEAD AND NECK: Normocephalic and atraumatic. CHEST: Clear to auscultation. HEART: S1 and S2. Regular rate and rhythm. ABDOMEN: Prominent. Hepatomegaly and splenomegaly. NEUROLOGIC: The patient is awake, alert, and oriented x3. PSYCHIATRIC: Mood and affect is flat. LABORATORY AND DIAGNOSTIC DATA: Labs dated November 14, 2017, shows WBC 9.7, hemoglobin of 8.9, and platelets of Sodium 138, potassium 3.8, BUN 10, and creatinine 0.8. AST 53. . UA shows 4+ bilirubin. IMAGING: Results are pending. ASSESSMENT AND PLAN: 1. Acute on chronic upper GI bleed. 2. Liver cirrhosis. 3. HIV. 4. Pancytopenia. 5. Alpha-1 antitrypsin deficiency - familial. 6. GI and DVT prophylaxis. PLAN OF CARE: GI, Dr. Sandoval, Hematology/Oncology, Dr. Dhillon have been consulted. We will avoid the medication with the potential side effects of thrombocytopenia. We will obtain the list of medications for HIV and we will resume. Infectious Disease, Dr. Jackson has been notified and consulted. Keep the patient NPO. Dalia Marshall M.D. DR: RISHI JOB#: [id number] CC: JOLYNN
--- NOTE | 2017-11-14 16:15 | Procedure Note ---
DATE OF PROCEDURE: 11/14/2017 SURGEON: Santiago Sandoval M.D. ANESTHESIOLOGIST: Dr. Lawson. REFERRING PHYSICIAN: Dalia Marshall M.D. PROCEDURE: Upper endoscopy with biopsy. ANESTHESIA: Per Dr. Lawson. INSTRUMENT: Olympus adult flexible upper endoscope. INDICATION: Upper GI bleeding. The procedure, risks, benefits, and possible consequences, including hemorrhage, aspiration, perforation and infection, and alternative treatments, were explained to the patient/legal guardian by Dr. Santiago Sandoval and the patient/legal guardian understood and accepted these risks. DESCRIPTION OF PROCEDURE: After informed consent was obtained and the patient was adequately sedated, Olympus upper endoscope was advanced from the mouth into the second portion of duodenum and retroflexion was performed in the stomach. There was no evidence of any obvious upper GI bleeding source. The patient had diffuse gastritis. Random biopsy from antrum was obtained to rule out H. pylori infection. Otherwise, the rest of the upper endoscopic examination was grossly within normal limit. SUMMARY OF FINDINGS: Gastritis, otherwise normal upper endoscopic examination. RECOMMENDATIONS: Follow up biopsy results and treat accordingly. Change Protonix to daily. Discontinue octreotdie. Send stool for OB. The patient needs outpatient followup for colonoscopy. I want to thank Dr. Marshall for this kind referral. Santiago Sandoval M.D. DR: Ba JOB#: [id number] CC: Dalia Marshall M.D.; Fax#: [phone]
[2017-11-14] MEDS ORDERED: Dyna-Hex 2% Top Sol 2oz TOPIC SCH (20:00)
[2017-11-15] VITALS: BP 100/63
[2017-11-15] MEDS: DiphenhydrAMINE 50mg/ml Inj IVP PRN ×2 (01:05→06:16)
[2017-11-15] MEDS: Morphine Sulfate 4mg/ml Inj IVP PRN ×2 (01:06→06:19)
[2017-11-15] MEDS: Octreotide Acetate 500 MCG in Sodium Chloride 500ML 499 ML IV SCH (02:45)
[2017-11-15 03:49] VITALS: BP 104/65
[2017-11-15] MEDS: Pantoprazole 80 MG in NS 250 ML IV SCH (04:00)
[2017-11-15 06:19] LABS: ALANINE AMINOTRANSFERASE 32 U/L (12-78); ALBUMIN 3.6 G/DL (3.4-5.0); ALBUMIN/GLOBULIN RATIO 1.1 (1.0-2.7); ALKALINE PHOSPHATASE 214 U/L (46-116); ANION GAP 9 mmol/L (5-15); ASPARTATE AMINO TRANSFERASE 46 U/L (15-37); BILIRUBIN,TOTAL 7.5 MG/DL (0.2-1.0); BLOOD UREA NITROGEN 12 mg/dL (7-18); CALCIUM 8.7 MG/DL (8.5-10.1); CARBON DIOXIDE 29 MMOL/L (21-32); CHLORIDE 100 MMOL/L (98-107); POTASSIUM 3.9 MMOL/L (3.5-5.1); SODIUM 137 MMOL/L (136-145)
[2017-11-15 06:30] LABS: HEMATOCRIT 27.2 % (42.0-52.0); HEMOGLOBIN 9.7 G/DL (14.2-18.0); MEAN CORPUSCULAR VOLUME 95 FL (80-99); PLATELET COUNT 60 K/UL (150-450); RED BLOOD COUNT 2.88 M/UL (4.70-6.10); RED CELL DISTRIBUTION WIDTH 18.6 % (11.6-14.8); WHITE BLOOD COUNT 7.1 K/UL (4.8-10.8)
[2017-11-15 06:43] LABS: BILIRUBIN,DIRECT 1.4 MG/DL (0.0-0.3)
[2017-11-15] MEDS ORDERED: Lidocaine 1% Plain 30 ml INJ PRN (07:30)
[2017-11-15] MEDS ORDERED: Heparin 2000 units/Ns 1000ml INJ PRN (07:30)
[2017-11-15] MEDS ORDERED: Tubing IV Secondary IV ONE (08:14)
[2017-11-15] MEDS ORDERED: NS 275ml ONE (08:14)
[2017-11-15] MEDS ORDERED: Pantoprazole Inj IVP SCH (09:00)
[2017-11-15] MEDS ORDERED: Lidocaine 1% MPF 10mg/ml 5ml ONE (12:00)
[2017-11-15] MEDS ORDERED: Propofol 200mg/20ml IV ONE (12:00)
[2017-11-15] MEDS ORDERED: Midazolam 2mg/2ml Inj ONE (12:00)
--- NOTE | 2017-11-15 13:26 | Discharge Summary ---
Discharge Summary Discharge Summary _ DATE OF ADMISSION: 11/13/2017 DATE OF DISCHARGE: 11/15/2017. Patient signed AGAINST MEDICAL ADVICE REASON FOR ADMISSION: 37 years old male with a history of alpha 1 antitrypsin deficiency, familial, subsequently developed cirrhosis and splenomegaly. According to patient ,he had an hepatitis B infection and subsequently developed cirrhosis. Patient had history of esophageal varices, status post banding, and subsequently undergone TIPS procedure. He reported recurrent GI bleeding related to esophageal varices. Patient recently moved to [place]. He was in [place] visiting friends. Patient was complaining of abdominal pain, started last night as well as bloody emesis and bright red blood rectally. Patient reported that he was advised to have his spleen removed. Upon evaluation in emergency room patient was afebrile ,tachycardic , pulse oximetry was stable on room air. WBC 3.6 ,hemoglobin 10.3 ,hematocrit 29.8, platelet 67. INR 1.2. Stable electrolytes and renal parameters. Total bilirubin 6.1 , direct bilirubin 1.4 ,AST 53 and AST 44. Abdominal ultrasound revealed chronic liver disease/cirrhosis. TIPS noted and grossly patent. Portal hypertension and splenomegaly. CT of the abdomen and pelvis revealed cirrhosis /chronic liver disease with poor stigmata of portal hypertension including splenomegaly and multiply portosystemic varices. TIPS noted. Evidence of previous thromboembolic coil treatment of varices. Gallstones. Patient admitted with diagnosis of acute GI hemorrhage , cirrhosis, esophageal varices, HIV status, alpha 1 antitrypsin deficiency, familial. CONSULTANTS: GI specialist Dr. Sandoval consulting practice director/oncologist Dr. Dhillon [facility] COURSE: Patient was admitted to direct observational unit. Patient was kept nothing by mouth. He was started on Protonix drip and octreotide drip. GI consult was requested. Patient subsequently undergone EGD with biopsy on which revealed diffuse gastritis, otherwise normal upper endoscopic examination. No evidence of any obvious upper GI bleeding source. Biopsy results still pending. GI recommended to follow-up with biopsy results, and treat accordingly. Patient started on clear liquid diet. No further GI bleeding. Octreotide drip was discontinued. Protonix drip was changed to oral Protonix daily. Per GI recommendation patient to follow-up as outpatient with colonoscopy. Patient started on clear liquid diet patient and was able to tolerate diet. Antiemetics were on board as needed. Hemoglobin and hematocrit were closely monitored along with WBC and platelets. On November 14 WBC down to 1.7, hemoglobin down to 8.9, and platelet down to 15. Counts were closely monitored. Graphic Design Manager followed. Pancytopenia was likely due to on chronic liver disease. On day of signing AGAINST MEDICAL ADVICE, WBC up to 7.1, hemoglobin 9.7, hematocrit 27.2 platelet 60. Anemia workup was consistent with anemia of chronic disease with stable iron, folic acid and B12 levels. HAART was resumed. Pain management was addressed. ID consult was pending. Patient decided to sign AGAINST MEDICAL ADVICE. The risks and consequences of signing AGAINST MEDICAL ADVICE were discussed with patient. Patient verbalized understanding, signed AMA form and left FINAL DIAGNOSES: Acute GI hemorrhage on chronic GI bleeding ( due to esophageal varices) Cirrhosis Esophageal varices Alpha-1 antitrypsin deficiency, familial Status post EGD with biopsy Gastritis Anemia Pancytopenia HIV status Splenomegaly I have been assigned to dictate discharge summary for this account. I was not involved in the patient's management. Fay Mast NP November 15, 2017 13:26
[2017-11-15] MEDS ORDERED: Dyna-Hex 2% Top Sol 2oz TOPIC SCH (20:00)
--- NOTE | 2017-11-15 22:27 | Cardiology Report ---
APPROVED REPORT EKG Measurement Heart [id number] MA [id number] Normal sinus rhythm Prolonged QT Abnormal ECG
== END 2017-11-15 08:15 | disposition left against medical advice (07) ==
LOC: EMR 16:49 → EDBEDREQ 17:27 → ICU 18:30 → UNDOADMIN 18:30 → 2W 18:30 → EDBEDREQ 19:49
PROC: 0DB78ZX Excision of Stomach, Pylorus, Via Natural or Artificial Opening Endoscopic, Diagnostic (ICD-10-PCS; principal; 2017-11-14 12:00)
DX: K74.69 Other cirrhosis of liver (principal); I85.11 Secondary esophageal varices with bleeding; D61.818 Other pancytopenia; K76.6 Portal hypertension; E88.01 Alpha-1-antitrypsin deficiency; R16.1 Splenomegaly, not elsewhere classified; K29.70 Gastritis, unspecified, without bleeding
CPT/HCPCS: 36415; 74177; 76700; 80048; 80053; 81003; 82103; 82248; 82550; 82607; 82728; 82746; 83540; 83550; 83615; 83690; 84443; 84484; 85007; 85025; 85044; 85060; 85384; 85610; 85730; 86850; 86870; 86900; 86901; 87081; 93005; 94003; 94150; 99291; J2250; J2405

== ENCOUNTER 2018-03-01 19:49 | Inpatient (IN) | payer MEDICAID ==
[~2018-03-01] VITALS: Ht 185.4 cm; Wt 80.7 kg
[~2018-03-01 19:49] MED LIST: AMBIEN5 MG ORAL; FERROUS SULFAT325 MG ORAL; FUROSEMIDE20 M1 ORAL; LACTULOSE20 GM/301 ORAL; PROPRANOLOL HCL20 MG ORAL; PROTONIX IV40 MG IV; VIREAD300 MG ORAL; ZOFRAN4 M3 ORAL
[2018-03-01 20:31] LABS: HEMATOCRIT 25.1 % (42.0-52.0); HEMOGLOBIN 9.1 G/DL (14.2-18.0); MEAN CORPUSCULAR VOLUME 94 FL (80-99); PLATELET COUNT 55 K/UL (150-450); RED BLOOD COUNT 2.68 M/UL (4.70-6.10); RED CELL DISTRIBUTION WIDTH 18.5 % (11.6-14.8); WHITE BLOOD COUNT 2.3 K/UL (4.8-10.8)
[2018-03-01] MEDS ORDERED: Morphine Sulfate 4mg/ml Inj (IV USE ONLY) IVP ONE (20:45)
[2018-03-01 20:46] VITALS: BP 120/81
[2018-03-01 20:46] LABS: ANION GAP 5 mmol/L (5-15); BLOOD UREA NITROGEN 3 mg/dL (7-18); CALCIUM 8.5 MG/DL (8.5-10.1); CARBON DIOXIDE 30 MMOL/L (21-32); CHLORIDE 103 MMOL/L (98-107); CREATININE 0.8 MG/DL (0.55-1.30); POTASSIUM 3.4 MMOL/L (3.5-5.1); SODIUM 138 MMOL/L (136-145)
[2018-03-01 20:57] LABS: ALANINE AMINOTRANSFERASE 26 U/L (12-78); ALBUMIN 2.5 G/DL (3.4-5.0); ALBUMIN/GLOBULIN RATIO 0.7 (1.0-2.7); ALKALINE PHOSPHATASE 207 U/L (46-116); ASPARTATE AMINO TRANSFERASE 49 U/L (15-37); BILIRUBIN,TOTAL 3.7 MG/DL (0.2-1.0)
[2018-03-01 21:27] VITALS: BP 135/75
--- NOTE | 2018-03-01 22:26 | Emergency Room Report ---
History of Present Illness General Chief Complaint: Gastrointestinal Illness Present Illness HPI Mr. Ruby is 37 yo male with hx of cirrhosis, jazuf-5-xyijomweisq deficiency , hepatitis B who presents with hematememis and bloody stool for one day. 3 episodes of arsh blood in emesis today. Hx of TIPS procedure in April at OSH in [place]. Has had red blood in stools. Has chronic pain in left flank which is attributes to enlarged spleen. Splenectomy has been recommended for patient. He currently is not followed by a physician or transplant specialist. He is relocating to [place] from [place]. He is looking for a place to stay. Staying with friends and family. HIV status was unclear according to EMR. Patient states that he is HIV negative. 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 Nursing Documentation: PMH: Agreed; PSxH: Agreed Nursing Documentation-PMH Hx Cardiac Problems: No Hx Cancer: No Hx Gastrointestinal Problems: Yes - born witn gris 1 antitripsyn Hx Neurological Problems: No Review of Systems Constitutional: Denies: fever, malaise Respiratory: Denies: cough Cardiovascular: Denies: chest pain Gastrointestinal: Reports: abdominal pain All Other Systems: negative except mentioned in HPI Physical Exam Vital Signs Date Time Temp Pulse Resp B/P (MAP) Pulse Ox O2 Delivery O2 Flow Rate FiO2 03/01/18 19:51 98.3 108 20 135/83 99 Room Air 98.2 Sp02 EP Interpretation: reviewed, normal General Appearance: no apparent distress, alert, GCS 15, non-toxic, other - insightful, articulate, pleasant, appears comfortable Head: normocephalic, atraumatic Eyes: bilateral eye normal inspection, bilateral eye scleral icterus ENT: hearing grossly normal, normal pharynx, no angioedema, normal voice Neck: full range of motion, supple, supple/symm/no masses Respiratory: chest non-tender, lungs clear, normal breath sounds, no rhonchi, no respiratory distress, no retraction, no accessory muscle use, speaking full sentences Cardiovascular #1: regular rate, rhythm, no gallop, no JVD, no murmur, no rub Gastrointestinal: normal bowel sounds, non tender, soft, no guarding, no rebound, distended - +fluid wave Rectal: normal rectal tone, blood streaked stool, heme positive stool, other - light brown stool, +gross blood surrounding rectum Genitourinary: normal inspection, no CVA tenderness Musculoskeletal: back normal, gait/station normal, normal range of motion, non- tender Neurologic: alert, oriented x3, responsive, motor strength/tone normal, sensory intact, speech normal Psychiatric: judgement/insight normal, memory normal, mood/affect normal, no suicidal/homicidal ideation Skin: normal color, warm/dry, well hydrated, other - well healed incisional wound left axilla, small ulcer with iodoform in place no purulence, clean wound Procedures Critical Care Time Critical Care Time 35 minutes of critical care time excluding procedures were used in the care of the patient. I reviewed labs. I reviewed previous electronic medical record. Patient required multiple reassessments. Very complex pt. Medical Decision Making Diagnostic Impression: Primary Impression: Bcrnh-4-lcwwnrzqtzw deficiency Additional Impression: Rectal bleeding ER Course Mr. Ruby is a 37 yo male with hx of itdim-2-rtvoswhhuhn deficiency, cirrhosis, varices s/p TIPS procedure. He reportshematemesis and red blood in stools. With red blood at the anus on exam, I suspect rectal bleed localized. I do not suspect active GI bleed from esophageal varices. He is at risk for gi bleed with hx of varices although he has had recent normal GI evaluation 4 months ago when last admitted in october. I highly appreciate the assistance of Dr. Marshall who readily admitted Mr. Ruby for observation to telemetry. 80 mg Protonix IV bolus given. Octreotide held without any indication of hematemesis. Patient politely declined NGT. Admitted to telemetry. Upon clarification, patient did have hemorrhoidectomy. Mr. Ruby explains that he normally has a transfusion at hgb 7. Lab Results Impression Labs Test 03/01/18 20:20 White Blood Count 2.3 K/UL (4.8-10.8) Red Blood Count 2.68 M/UL (4.70-6.10) Hemoglobin 9.1 G/DL (14.2-18.0) Hematocrit 25.1 % (42.0-52.0) Mean Corpuscular Volume 94 FL (80-99) Mean Corpuscular Hemoglobin 34.0 PG (27.0-31.0) Mean Corpuscular Hemoglobin Concent 36.3 G/DL (32.0-36.0) Red Cell Distribution Width 18.5 % (11.6-14.8) Platelet Count 55 K/UL (150-450) Mean Platelet Volume 5.9 FL (6.5-10.1) Neutrophils (%) (Auto) % (45.0-75.0) Lymphocytes (%) (Auto) % (20.0-45.0) Monocytes (%) (Auto) % (1.0-10.0) Eosinophils (%) (Auto) % (0.0-3.0) Basophils (%) (Auto) % (0.0-2.0) Sodium Level 138 MMOL/L (136-145) Potassium Level 3.4 MMOL/L (3.5-5.1) Chloride Level 103 MMOL/L (98-107) Carbon Dioxide Level 30 MMOL/L (21-32) Anion Gap 5 mmol/L (5-15) Blood Urea Nitrogen 3 mg/dL (7-18) Creatinine 0.8 MG/DL (0.55-1.30) Estimat Glomerular Filtration Rate > 60 mL/min (>60) Glucose Level 155 MG/DL (74-106) Calcium Level 8.5 MG/DL (8.5-10.1) Total Bilirubin 3.7 MG/DL (0.2-1.0) Direct Bilirubin 1.0 MG/DL (0.0-0.3) Aspartate Amino Transf (AST/SGOT) 49 U/L (15-37) Alanine Aminotransferase (ALT/SGPT) 26 U/L (12-78) Alkaline Phosphatase 207 U/L (46-116) Total Protein 6.0 G/DL (6.4-8.2) Albumin 2.5 G/DL (3.4-5.0) Globulin 3.5 g/dL Albumin/Globulin Ratio 0.7 (1.0-2.7) Lipase 68 U/L (73-393) Last Vital Signs Date Time Temp Pulse Resp B/P (MAP) Pulse Ox O2 Delivery O2 Flow Rate FiO2 03/01/18 21:27 98.2 106 23 135/75 99 Room Air 98.2 Referrals: NOT CHOSEN IPA/,REFERRING (PCP) Mary Figueroa MD Mar 01, 2018 22:26
[2018-03-01] MEDS ORDERED: LORazepam 1mg tab ORAL PRN (23:00)
[2018-03-01] MEDS ORDERED: Albuterol/Ipratropium 3ml neb HHN PRN (23:00)
[2018-03-02] VITALS (8 sets, daily range): BP systolic 90–162; BP diastolic 47–87
[2018-03-02] MEDS: D5NS 1,000 ML IV SCH ×3 (01:30→20:49)
[2018-03-02] MEDS: Morphine Sulfate 2mg/ml Inj IVP PRN ×2 (01:47→11:29)
[2018-03-02 05:37] LABS: HEMATOCRIT 22.5 % (42.0-52.0); HEMOGLOBIN 7.7 G/DL (14.2-18.0); MEAN CORPUSCULAR VOLUME 95 FL (80-99); PLATELET COUNT 44 K/UL (150-450); RED BLOOD COUNT 2.37 M/UL (4.70-6.10); RED CELL DISTRIBUTION WIDTH 18.6 % (11.6-14.8)
[2018-03-02 05:49] LABS: WHITE BLOOD COUNT 1.5 K/UL (4.8-10.8)
[2018-03-02 06:11] LABS: ANION GAP 2 mmol/L (5-15); BLOOD UREA NITROGEN 4 mg/dL (7-18); CALCIUM 8.5 MG/DL (8.5-10.1); CARBON DIOXIDE 33 MMOL/L (21-32); CHLORIDE 106 MMOL/L (98-107); CREATININE 0.7 MG/DL (0.55-1.30); POTASSIUM 3.3 MMOL/L (3.5-5.1); SODIUM 141 MMOL/L (136-145)
[2018-03-02] MEDS ORDERED: Pantoprazole Inj IV SCH (09:00)
--- NOTE | 2018-03-02 11:53 | General Progress Note ---
Assessment/Plan Assessment/Plan Assessment - Alpha-1- antitrypsin deficiency - Hepatitis B Carrier - Cirrhosis with - portal HTN - varicies - ascites - encephalopathy - coagulopathy - UGIB - Leukopenia - gallstones Recommendations - Sandostatin gtt - PPI - platelet transfusion - clears --> NPO tonight - EGD tomorrow with banding - duplex TIPPS for further evaluation of patentcy and flow (patent on ultrasound ) - check INR - may need FFP as well - Heme eval / Neupogen - abx - Check AFP - evaluation of rectal lesions on CT once more stable Thank you P Veronika Subjective Allergies: Coded Allergies: ADHESIVE TAPE (Verified Allergy, Unknown, 11/13/17) BEE VENOM PROTEIN (HONEY BEE) (Verified Allergy, Unknown, 11/13/17) PENICILLINS (Verified Allergy, Unknown, 11/13/17) Objective Last 24 Hour Vital Signs Date Time Temp Pulse Resp B/P (MAP) Pulse Ox O2 Delivery O2 Flow Rate FiO2 03/02/18 10:39 Room Air 03/02/18 08:59 97.0 85 18 162/71 (101) 99 97.0 03/02/18 08:15 98.4 74 17 104/68 98 Room Air 98.4 03/02/18 07:50 98.4 74 17 104/68 98 Room Air 98.4 03/02/18 05:41 98.4 77 17 90/47 98 Room Air 98.4 03/02/18 03:41 98.2 79 17 102/69 100 Room Air 98.2 03/02/18 02:17 98.2 03/02/18 01:47 98.2 03/02/18 01:42 98.2 95 23 120/75 98 Room Air 98.2 03/01/18 21:27 98.2 106 23 135/75 99 Room Air 98.2 03/01/18 21:01 98.2 03/01/18 20:46 98.2 99 20 120/81 99 Room Air 98.2 03/01/18 19:51 98.3 108 20 135/83 99 Room Air 98.2 Intake and Output 03/01/18 03/02/18 19:00 07:00 Output Total 700 ml Balance -700 ml Output Urine Total 700 ml Laboratory Tests 03/01/18 20:20: White Blood Count 2.3L, Red Blood Count 2.68L, Hemoglobin 9.1L, Hematocrit 25.1L , Mean Corpuscular Volume 94, Mean Corpuscular Hemoglobin 34.0H, Mean Corpuscular Hemoglobin Concent 36.3H, Red Cell Distribution Width 18.5H, Platelet Count 55L, Mean Platelet Volume 5.9L, Neutrophils (%) (Auto) , Lymphocytes (%) (Auto) , Monocytes (%) (Auto) , Eosinophils (%) (Auto) , Basophils (%) (Auto) , Differential Total Cells Counted 100, Neutrophils % ( Manual) 66, Lymphocytes % (Manual) 24, Monocytes % (Manual) 3, Eosinophils % ( Manual) 7H, Basophils % (Manual) 0, Band Neutrophils 0, Platelet Estimate DecreasedL, Platelet Morphology Normal, Hypochromasia 1+, Anisocytosis 1+, Sodium Level 138, Potassium Level 3.4L, Chloride Level 103, Carbon Dioxide Level 30, Anion Gap 5, Blood Urea Nitrogen 3L, Creatinine 0.8, Estimat Glomerular Filtration Rate > 60, Glucose Level 155H, Calcium Level 8.5, Total Bilirubin 3.7H, Direct Bilirubin 1.0H, Aspartate Amino Transf (AST/SGOT) 49H, Alanine Aminotransferase (ALT/SGPT) 26, Alkaline Phosphatase 207H, Total Protein 6.0L, Albumin 2.5L, Globulin 3.5, Albumin/Globulin Ratio 0.7L, Lipase 68L 03/02/18 05:00: White Blood Count 1.5*L, Red Blood Count 2.37L, Hemoglobin 7.7L, Hematocrit 22.5L, Mean Corpuscular Volume 95, Mean Corpuscular Hemoglobin 32.5H, Mean Corpuscular Hemoglobin Concent 34.1, Red Cell Distribution Width 18.6H, Platelet Count 44L, Mean Platelet Volume 7.1, Neutrophils (%) (Auto) , Lymphocytes (%) (Auto) , Monocytes (%) (Auto) , Eosinophils (%) (Auto) , Basophils (%) (Auto) , Differential Total Cells Counted 100, Neutrophils % ( Manual) 61, Lymphocytes % (Manual) 28, Monocytes % (Manual) 8, Eosinophils % ( Manual) 3, Basophils % (Manual) 0, Band Neutrophils 0, Platelet Estimate DecreasedL, Platelet Morphology Normal, Hypochromasia 1+, Anisocytosis 1+, Sodium Level 141, Potassium Level 3.3L, Chloride Level 106, Carbon Dioxide Level 33H, Anion Gap 2L, Blood Urea Nitrogen 4L, Creatinine 0.7, Estimat Glomerular Filtration Rate > 60, Glucose Level 108H, Calcium Level 8.5, Hemoglobin A1c 3.8L, Thyroid Stimulating Hormone (TSH) 2.779 Height (Feet): 6 Height (Inches): 1.00 Weight (Pounds): 180 Judith Banda MD Mar 02, 2018 11:53
[2018-03-02 13:00] LABS: HEMATOCRIT 22.4 % (42.0-52.0); HEMOGLOBIN 7.6 G/DL (14.2-18.0); MEAN CORPUSCULAR VOLUME 96 FL (80-99); PLATELET COUNT 37 K/UL (150-450); RED BLOOD COUNT 2.35 M/UL (4.70-6.10); RED CELL DISTRIBUTION WIDTH 18.3 % (11.6-14.8)
[2018-03-02] MEDS ORDERED: metroNIDAZOLE 250mg tab ORAL SCH (13:00)
[2018-03-02 13:08] LABS: INR 1.3 (0.9-1.1)
[2018-03-02 13:12] LABS: WHITE BLOOD COUNT 1.2 K/UL (4.8-10.8)
--- NOTE | 2018-03-02 13:47 | History & Physical ---
History and Physical History & Physicial SOURCE OF INFORMATION: The patient and EMR. HISTORY OF PRESENT ILLNESS: The patient is a pleasant 37-year-old with history of cirrhosis secondary to alpha-1 antitrypsin deficiency. The patient reported vomitus of the gross arsh red blood at least three to five times prior to the evaluation in the emergency room. In addition, the patient is complaining of hematochezia at least three times, pure red blood. At the time of evaluation, the patient denies any chest pain or shortness of breath. Denies any nausea or vomitus. Denies any abdominal pain. REVIEW OF SYSTEMS: All 12 elements of review of systems reviewed as mentioned above. Pertinent positive and negative as mentioned above. ALLERGIES: Penicillin. FAMILY HISTORY: Reviewed and noncontributory. SOCIAL HISTORY: The patient denies history of illicit drug abuse, smoking, or alcohol abuse. 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 PAST MEDICAL HISTORY: History of alpha-1 antitrypsin deficiency - familial, and HIV. PAST SURGICAL HISTORY: TIPS placement and appendectomy. PHYSICAL EXAMINATION: VITAL SIGNS: Blood pressure 110/80, temperature 98.1, pulse oximetry 98% on room air, and respiratory rate 18. HEAD AND NECK: Normocephalic and atraumatic. CHEST: Clear to auscultation. HEART: S1 and S2. Regular rate and rhythm. ABDOMEN: Prominent. Hepatomegaly and splenomegaly. NEUROLOGIC: The patient is awake, alert, and oriented x3. PSYCHIATRIC: Mood and affect is flat. LABORATORY AND DIAGNOSTIC DATA: Labs dated Mar 02 Reviewed IMAGING: Results are pending. ASSESSMENT AND PLAN: 1. Acute on chronic upper GI bleed. 2. Liver cirrhosis. 3. HIV. Non compliant with medication 4. Pancytopenia. 5. Alpha-1 antitrypsin deficiency - familial. 6. GI and DVT prophylaxis. PLAN OF CARE: GI, Hematology/Oncology, DrLois have been consulted. We will avoid the medication with the potential side effects of thrombocytopenia. will check for HIV and Hep C status, Keep the patient NPO. Dalia Marshall MD Mar 02, 2018 13:47
--- NOTE | 2018-03-02 13:48 | General Progress Note ---
Assessment/Plan Assessment/Plan S: I am still passing blood O: appears comfortable, reported abdomen is painful PHYSICAL EXAMINATION: HEAD AND NECK: Normocephalic and atraumatic. CHEST: Clear to auscultation. HEART: S1 and S2. Regular rate and rhythm. ABDOMEN: Prominent. Hepatomegaly and splenomegaly. NEUROLOGIC: The patient is awake, alert, and oriented x3. PSYCHIATRIC: Mood and affect is flat. LABORATORY AND DIAGNOSTIC DATA: Labs dated Mar 02 Reviewed Meds: Including morphin 4 mg every 4 hours for pain ASSESSMENT AND PLAN: 1. Acute on chronic upper GI bleed. 2. Liver cirrhosis. 3. HIV. Non compliant with medication 4. Pancytopenia. 5. Alpha-1 antitrypsin deficiency - familial. 6. GI and DVT prophylaxis. PLAN OF CARE: GI, Hematology/Oncology, have been consulted. We will avoid the medication with the potential side effects of thrombocytopenia. will check for HIV and Hep C status, Keep the patient NPO. Subjective Allergies: Coded Allergies: ADHESIVE TAPE (Verified Allergy, Unknown, 11/13/17) BEE VENOM PROTEIN (HONEY BEE) (Verified Allergy, Unknown, 11/13/17) PENICILLINS (Verified Allergy, Unknown, 11/13/17) Objective Last 24 Hour Vital Signs Date Time Temp Pulse Resp B/P (MAP) Pulse Ox O2 Delivery O2 Flow Rate FiO2 03/02/18 12:00 82 03/02/18 12:00 97.9 79 18 114/69 (84) 96 97.9 03/02/18 10:39 Room Air 03/02/18 08:59 97.0 85 18 162/71 (101) 99 97.0 03/02/18 08:15 98.4 74 17 104/68 98 Room Air 98.4 03/02/18 07:50 98.4 74 17 104/68 98 Room Air 98.4 03/02/18 05:41 98.4 77 17 90/47 98 Room Air 98.4 03/02/18 03:41 98.2 79 17 102/69 100 Room Air 98.2 03/02/18 02:17 98.2 03/02/18 01:47 98.2 03/02/18 01:42 98.2 95 23 120/75 98 Room Air 98.2 03/01/18 21:27 98.2 106 23 135/75 99 Room Air 98.2 03/01/18 21:01 98.2 03/01/18 20:46 98.2 99 20 120/81 99 Room Air 98.2 03/01/18 19:51 98.3 108 20 135/83 99 Room Air 98.2 Intake and Output 03/01/18 03/02/18 19:00 07:00 Output Total 700 ml Balance -700 ml Output Urine Total 700 ml Laboratory Tests 03/01/18 20:20: White Blood Count 2.3L, Red Blood Count 2.68L, Hemoglobin 9.1L, Hematocrit 25.1L , Mean Corpuscular Volume 94, Mean Corpuscular Hemoglobin 34.0H, Mean Corpuscular Hemoglobin Concent 36.3H, Red Cell Distribution Width 18.5H, Platelet Count 55L, Mean Platelet Volume 5.9L, Neutrophils (%) (Auto) , Lymphocytes (%) (Auto) , Monocytes (%) (Auto) , Eosinophils (%) (Auto) , Basophils (%) (Auto) , Differential Total Cells Counted 100, Neutrophils % ( Manual) 66, Lymphocytes % (Manual) 24, Monocytes % (Manual) 3, Eosinophils % ( Manual) 7H, Basophils % (Manual) 0, Band Neutrophils 0, Platelet Estimate DecreasedL, Platelet Morphology Normal, Hypochromasia 1+, Anisocytosis 1+, Sodium Level 138, Potassium Level 3.4L, Chloride Level 103, Carbon Dioxide Level 30, Anion Gap 5, Blood Urea Nitrogen 3L, Creatinine 0.8, Estimat Glomerular Filtration Rate > 60, Glucose Level 155H, Calcium Level 8.5, Total Bilirubin 3.7H, Direct Bilirubin 1.0H, Aspartate Amino Transf (AST/SGOT) 49H, Alanine Aminotransferase (ALT/SGPT) 26, Alkaline Phosphatase 207H, Total Protein 6.0L, Albumin 2.5L, Globulin 3.5, Albumin/Globulin Ratio 0.7L, Lipase 68L 03/02/18 05:00: White Blood Count 1.5*L, Red Blood Count 2.37L, Hemoglobin 7.7L, Hematocrit 22.5L, Mean Corpuscular Volume 95, Mean Corpuscular Hemoglobin 32.5H, Mean Corpuscular Hemoglobin Concent 34.1, Red Cell Distribution Width 18.6H, Platelet Count 44L, Mean Platelet Volume 7.1, Neutrophils (%) (Auto) , Lymphocytes (%) (Auto) , Monocytes (%) (Auto) , Eosinophils (%) (Auto) , Basophils (%) (Auto) , Differential Total Cells Counted 100, Neutrophils % ( Manual) 61, Lymphocytes % (Manual) 28, Monocytes % (Manual) 8, Eosinophils % ( Manual) 3, Basophils % (Manual) 0, Band Neutrophils 0, Platelet Estimate DecreasedL, Platelet Morphology Normal, Hypochromasia 1+, Anisocytosis 1+, Sodium Level 141, Potassium Level 3.3L, Chloride Level 106, Carbon Dioxide Level 33H, Anion Gap 2L, Blood Urea Nitrogen 4L, Creatinine 0.7, Estimat Glomerular Filtration Rate > 60, Glucose Level 108H, Calcium Level 8.5, Hemoglobin A1c 3.8L, Thyroid Stimulating Hormone (TSH) 2.779 03/02/18 12:30: White Blood Count 1.2*L, Red Blood Count 2.35L, Hemoglobin 7.6L, Hematocrit 22.4L, Mean Corpuscular Volume 96, Mean Corpuscular Hemoglobin 32.5H, Mean Corpuscular Hemoglobin Concent 34.0, Red Cell Distribution Width 18.3H, Platelet Count 37L, Mean Platelet Volume 8.6, Neutrophils (%) (Auto) , Lymphocytes (%) (Auto) , Monocytes (%) (Auto) , Eosinophils (%) (Auto) , Basophils (%) (Auto) , Differential Total Cells Counted 100, Neutrophils % ( Manual) 76H, Lymphocytes % (Manual) 16L, Monocytes % (Manual) 7, Eosinophils % ( Manual) 1, Basophils % (Manual) 0, Band Neutrophils 0, Platelet Estimate DecreasedL, Platelet Morphology Normal, Hypochromasia 1+, Anisocytosis 1+, Prothrombin Time 13.7H, Prothromb Time International Ratio 1.3H, Activated Partial Thromboplast Time 29 Height (Feet): 6 Height (Inches): 1.00 Weight (Pounds): 180 Dalia Marshall MD Mar 02, 2018 13:48
[2018-03-02] MEDS: Octreotide Acetate 500 MCG in Sodium Chloride 500ML 499 ML IV SCH ×2 (13:51→22:32)
--- NOTE | 2018-03-02 14:38 | Infectious Diseases Prog Note ---
Assessment/Plan Problems: (1) Hepatitis B virus infection Assessment & Plan: chronic carrier , on tenofovir for chronic suppression to prevent accelerated liver damage (2) Fdotg-[id number] deficiency Assessment & Plan: continue supportive care , management as per GI and pulmonary (3) Rectal bleeding Assessment & Plan: monitor H/H, transfuse as needed , GI is following Subjective Allergies: Coded Allergies: ADHESIVE TAPE (Verified Allergy, Unknown, 11/13/17) BEE VENOM PROTEIN (HONEY BEE) (Verified Allergy, Unknown, 11/13/17) PENICILLINS (Verified Allergy, Unknown, 11/13/17) Objective Vital Signs Last 24 Hour Vital Signs Date Time Temp Pulse Resp B/P (MAP) Pulse Ox O2 Delivery O2 Flow Rate FiO2 03/02/18 12:00 82 03/02/18 12:00 97.9 79 18 114/69 (84) 96 97.9 03/02/18 10:39 Room Air 03/02/18 08:59 97.0 85 18 162/71 (101) 99 97.0 03/02/18 08:15 98.4 74 17 104/68 98 Room Air 98.4 03/02/18 07:50 98.4 74 17 104/68 98 Room Air 98.4 03/02/18 05:41 98.4 77 17 90/47 98 Room Air 98.4 03/02/18 03:41 98.2 79 17 102/69 100 Room Air 98.2 03/02/18 02:17 98.2 03/02/18 01:47 98.2 03/02/18 01:42 98.2 95 23 120/75 98 Room Air 98.2 03/01/18 21:27 98.2 106 23 135/75 99 Room Air 98.2 03/01/18 21:01 98.2 03/01/18 20:46 98.2 99 20 120/81 99 Room Air 98.2 03/01/18 19:51 98.3 108 20 135/83 99 Room Air 98.2 Height (Feet): 6 Height (Inches): 1.00 Weight (Pounds): 180 Laboratory Tests Test 03/01/18 20:20 03/02/18 05:00 03/02/18 12:30 White Blood Count 2.3 K/UL (4.8-10.8) L 1.5 K/UL (4.8-10.8) *L 1.2 K/UL (4.8-10.8) *L Red Blood Count 2.68 M/UL (4.70-6.10) L 2.37 M/UL (4.70-6.10) L 2.35 M/UL (4.70-6.10) L Hemoglobin 9.1 G/DL (14.2-18.0) L 7.7 G/DL (14.2-18.0) L 7.6 G/DL (14.2-18.0) L Hematocrit 25.1 % (42.0-52.0) L 22.5 % (42.0-52.0) L 22.4 % (42.0-52.0) L Mean Corpuscular Volume 94 FL (80-99) 95 FL (80-99) 96 FL (80-99) Mean Corpuscular Hemoglobin 34.0 PG (27.0-31.0) H 32.5 PG (27.0-31.0) H 32.5 PG (27.0-31.0) H Mean Corpuscular Hemoglobin Concent 36.3 G/DL (32.0-36.0) H 34.1 G/DL (32.0-36.0) 34.0 G/DL (32.0-36.0) Red Cell Distribution Width 18.5 % (11.6-14.8) H 18.6 % (11.6-14.8) H 18.3 % (11.6-14.8) H Platelet Count 55 K/UL (150-450) L 44 K/UL (150-450) L 37 K/UL (150-450) L Mean Platelet Volume 5.9 FL (6.5-10.1) L 7.1 FL (6.5-10.1) 8.6 FL (6.5-10.1) Neutrophils (%) (Auto) % (45.0-75.0) % (45.0-75.0) % (45.0-75.0) Lymphocytes (%) (Auto) % (20.0-45.0) % (20.0-45.0) % (20.0-45.0) Monocytes (%) (Auto) % (1.0-10.0) % (1.0-10.0) % (1.0-10.0) Eosinophils (%) (Auto) % (0.0-3.0) % (0.0-3.0) % (0.0-3.0) Basophils (%) (Auto) % (0.0-2.0) % (0.0-2.0) % (0.0-2.0) Differential Total Cells Counted 100 100 100 Neutrophils % (Manual) 66 % (45-75) 61 % (45-75) 76 % (45-75) H Lymphocytes % (Manual) 24 % (20-45) 28 % (20-45) 16 % (20-45) L Monocytes % (Manual) 3 % (1-10) 8 % (1-10) 7 % (1-10) Eosinophils % (Manual) 7 % (0-3) H 3 % (0-3) 1 % (0-3) Basophils % (Manual) 0 % (0-2) 0 % (0-2) 0 % (0-2) Band Neutrophils 0 % (0-8) 0 % (0-8) 0 % (0-8) Platelet Estimate Decreased L Decreased L Decreased L Platelet Morphology Normal Normal Normal Hypochromasia 1+ 1+ 1+ Anisocytosis 1+ 1+ 1+ Sodium Level 138 MMOL/L (136-145) 141 MMOL/L (136-145) Potassium Level 3.4 MMOL/L (3.5-5.1) L 3.3 MMOL/L (3.5-5.1) L Chloride Level 103 MMOL/L (98-107) 106 MMOL/L (98-107) Carbon Dioxide Level 30 MMOL/L (21-32) 33 MMOL/L (21-32) H Anion Gap 5 mmol/L (5-15) 2 mmol/L (5-15) L Blood Urea Nitrogen 3 mg/dL (7-18) L 4 mg/dL (7-18) L Creatinine 0.8 MG/DL (0.55-1.30) 0.7 MG/DL (0.55-1.30) Estimat Glomerular Filtration Rate > 60 mL/min (>60) > 60 mL/min (>60) Glucose Level 155 MG/DL (74-106) H 108 MG/DL (74-106) H Calcium Level 8.5 MG/DL (8.5-10.1) 8.5 MG/DL (8.5-10.1) Total Bilirubin 3.7 MG/DL (0.2-1.0) H Direct Bilirubin 1.0 MG/DL (0.0-0.3) H Aspartate Amino Transf (AST/SGOT) 49 U/L (15-37) H Alanine Aminotransferase (ALT/SGPT) 26 U/L (12-78) Alkaline Phosphatase 207 U/L (46-116) H Total Protein 6.0 G/DL (6.4-8.2) L Albumin 2.5 G/DL (3.4-5.0) L Globulin 3.5 g/dL Albumin/Globulin Ratio 0.7 (1.0-2.7) L Lipase 68 U/L (73-393) L Hemoglobin A1c 3.8 % (4.3-6.0) L Thyroid Stimulating Hormone (TSH) 2.779 uiU/mL (0.358-3.740) Prothrombin Time 13.7 SEC (9.30-11.50) H Prothromb Time International Ratio 1.3 (0.9-1.1) H Activated Partial Thromboplast Time 29 SEC (23-33) Current Medications Medications (Trade) Dose Ordered Sig/Roberto Route PRN Reason Start Time Stop Time Status Last Admin Dose Admin Acetaminophen (Tylenol) 650 mg Q4H PRN ORAL Mild Pain (Pain Scale 1-3) 03/01/18 23:00 03/31/18 22:59 Albuterol/ Ipratropium (Albuterol/ Ipratropium) 3 ml PRN PRN HHN Shortness of Breath 03/01/18 23:00 03/06/18 22:59 Ciprofloxacin (Cipro 250mg tab) 250 mg EVERY 12 HOURS ORAL 03/02/18 21:00 03/09/18 20:59 Dextrose (Dextrose 50%) 25 ml STAT PRN IV Hypoglycemia 03/01/18 23:00 03/31/18 22:59 Dextrose (Dextrose 50%) 50 ml STAT PRN IV Hypoglycemia 03/01/18 23:00 03/31/18 22:59 Dextrose/Sodium Chloride 1,000 ml @ 100 mls/hr Q10H IV 03/01/18 23:57 03/31/18 23:56 03/02/18 10:23 Lorazepam (Ativan) 1 mg Q4H PRN ORAL For Anxiety 03/01/18 23:00 03/08/18 22:59 Metronidazole (Flagyl) 250 mg Q6HR ORAL 03/02/18 18:00 03/09/18 17:59 Morphine Sulfate (Morphine Sulfate) 4 mg Q4H PRN IVP Pain 4-10 03/02/18 13:30 03/09/18 13:29 Octreotide Acetate 500 mcg/ Sodium Chloride 500 ml @ 50 mls/hr Q10H IV 03/02/18 12:30 04/01/18 12:29 03/02/18 13:51 Ondansetron HCl (Zofran) 4 mg Q6H PRN IVP Nausea & Vomiting 03/01/18 23:00 03/31/18 22:59 03/02/18 11:29 Pantoprazole (Protonix) 40 mg EVERY 12 HOURS ORAL 03/02/18 21:00 04/01/18 20:59 Zolpidem Tartrate (Ambien) 5 mg DAILYPRN PRN ORAL Insomnia 03/01/18 23:00 03/08/18 22:59 Tobin Lezama M.D. Mar 02, 2018 14:38
[2018-03-02] MEDS: Morphine Sulfate 4mg/ml Inj (IV USE ONLY) IVP PRN ×2 (16:22→20:51)
[2018-03-02] MEDS: metroNIDAZOLE 250mg tab ORAL SCH (18:05)
[2018-03-02 18:58] LABS: % IRON SATURATION 82 % (15-50); IRON 142 ug/dL (50-175); TOTAL IRON BINDING CAPACITY 174 ug/dL (250-450)
[2018-03-02] MEDS ORDERED: TBO-Filgrastim 300 mcg/0.5ml SQ SCH (19:00)
[2018-03-02 19:12] LABS: FERRITIN 144 NG/ML (8-388)
--- NOTE | 2018-03-02 20:30 | Consultation ---
DATE OF CONSULTATION: 03/02/2018 GASTROENTEROLOGY CONSULTATION CHIEF COMPLAINT: I was asked to see this patient for evaluation of gastrointestinal bleeding. HISTORY OF PRESENT ILLNESS: The patient is a pleasant 37-year-old white man with a lifelong history of alpha-1 antitrypsin deficiency with resultant cirrhosis, who comes in with upper gastrointestinal bleeding. The patient has had a lifelong history of antitrypsin deficiency, which he inherited from his father. He also found out in his early 20s that he has hepatitis B carrier state and he is being treated for this as well. He has full blown manifestation of the cirrhosis including history of esophageal varices, ascites, splenomegaly, and thrombocytopenia. He has had up to 10 endoscopies as well as perhaps about 5 to 6 colonoscopies. The endoscopy is usually for treatment of esophageal varices and colonoscopies treat some other bleeding lesions in his colon. The results of these studies are not available to me at this time. The patient's last colonoscopy was about a year ago and his last endoscopy was few months ago when bands were placed. He does have ascites history and has had paracenteses, but on this admission, his imaging studies did not show any evidence of ascites. He is normally on propranolol, Lasix, lactulose, Viread, as well as Protonix. PAST MEDICAL HISTORY: History of alpha-1 antitrypsin deficiency, chronic hepatitis B carrier state, portal hypertension, esophageal varices, thrombocytopenia, recurrent gastrointestinal bleeding, and gallstones. FAMILY HISTORY: Positive for alpha-1 antitrypsin deficiency in the father. SOCIAL HISTORY: The patient has a partner. She does not smoke or drink alcohol. He is new to [place]. MEDICATIONS: Propranolol, Lasix, lactulose, Viread, and Protonix. REVIEW OF SYSTEMS: Otherwise negative. PHYSICAL EXAMINATION: GENERAL: A pleasant white man, seen in his room. HEENT: Normocephalic and atraumatic. Sclerae anicteric. Oropharynx clear. NECK: Supple. CHEST: Clear to auscultation. CARDIOVASCULAR: Revealed a regular rate. ABDOMEN: Soft and tender to palpation on the left side, which is apparently baseline for this patient due to some splenomegaly. EXTREMITIES: Revealed 1+ edema. LABORATORY DATA: Laboratory data and imaging studies were noted. ASSESSMENT: This patient presents with cirrhosis with upper gastrointestinal bleeding with hematemesis and melena and hematochezia. The patient will need to be resuscitated today and he will need to undergo platelet transfusion since his platelet counts are under 50,000. There is no INR drawn at this time, and therefore, I will order this as well. The patient should be placed on a Sandostatin drip as well as broad-spectrum antibiotics. Epogen should be given to raise his white count in order to reduce infectious complications with banding. The patient will need to undergo banding within the next 24 hours, but he has to be stabilized, evaluated, and treated for all the above-mentioned issues first. RECOMMENDATIONS: 1. Clear liquid diet for today. 2. Sandostatin drop. 3. Proton pump inhibitor. 4. Platelet transfusion. 5. Endoscopy tomorrow with banding. 6. Re-evaluate TIPS patency with dedicated Doppler study. 7. Check INR. 8. Antibiotics. 9. Check alpha-fetoprotein. 10. Evaluate the rectal lesion seen on CT at a later date once no longer neutropenic. Thank you for asking me to participate in the care of this patient. Judith Banda M.D. DR: RHYS JOB#: [id number] CC:
[2018-03-02] MEDS: Zolpidem 5mg tab ORAL PRN (22:31)
--- NOTE | 2018-03-02 23:30 | Consultation ---
DATE OF CONSULTATION: 03/02/2018 INFECTIOUS DISEASE CONSULTATION CONSULTING PHYSICIAN: Tobin eLzama M.D. REQUESTING PHYSICIAN: Dalia Marshall M.D. REASON FOR CONSULTATION: chronic hepatitis B infection , recommendations for medical management HISTORY OF PRESENT ILLNESS: The patient is a 37-year-old male with past medical history of alpha-1 antitrypsin deficiency and liver cirrhosis with ascites, presented to [facility] with rectal bleeding. The patient had also bloody vomit couple of times before arrival to the emergency room. The patient also had hematochezia with few red blood in his bowel movement, so he was admitted to the hospital for GI evaluation and possible endoscopy. The patient had well known history of chronic hepatitis B, which he has been on tenofovir for, so Infectious Disease consultation was requested for medical management and further recommendation. The patient denied any cough or shortness of breath. No nausea, vomiting, or diarrhea. No abdominal pain or bloating. No urinary symptoms. REVIEW OF SYSTEMS: A 14-point of systems reviewed were all negative apart from the one I mentioned above in my History and Physical. PAST MEDICAL HISTORY: Significant for alpha-1 antitrypsin deficiency, HIV, chronic hepatitis B, liver cirrhosis, and ascites. PAST SURGICAL HISTORY: He had TIPS placement and appendectomy. MEDICATIONS: Currently, he is on Cipro and Flagyl. ALLERGIES: He is allergic to penicillin. 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 Denies using any drugs, tobacco, or alcohol. FAMILY HISTORY: Negative, noncontributory. PHYSICAL EXAMINATION: VITAL SIGNS: Temperature 97.9, pulse 79, respirations 18, blood pressure of 144/69, and saturation 96% on room air. GENERAL: Young male, lying in bed, awake, alert, not in acute distress. HEENT: Normocephalic and atraumatic. Pupils are reactive to light. Moist oral mucosa. No exudate or thrush. NECK: Supple. No lymphadenopathy. CARDIOVASCULAR: Regular rate and rhythm. No murmur. LUNGS: Clear bilaterally. Diminished breathing sounds at the bases. ABDOMEN: Soft, distended, with ascites and hepatomegaly. No rebound, no tenderness. EXTREMITIES: Edema +1. No cyanosis. SKIN: Left arm with surgical wound, clean and dry, with no evidence of drainage. LABORATORY DATA: Labs showed white count of 1.2, hemoglobin of 7.6, and platelet count of 37,000. BUN of 4, creatinine of 0.7. AST of 49, ALT of 26. Imaging, none done so far. ASSESSMENT AND RECOMMENDATION: 1. Chronic hepatitis B. on chronic suppression with tenofovir . patient to continue tenofovir as before and monitor viral DNA level 2. Rectal bleeding. Rule out varices due to liver cirrhosis. Gastrointestinal is following. Monitor hemoglobin and hematocrit. Transfuse blood as needed. Need endoscopy. 3. Alpha-1 antitrypsin deficiency with liver cirrhosis. The patient to follow up with GI recommendation. Thank you for the consult. ID will continue to follow. Tobin Lezama M.D. DR: JULIO C JOB#: [id number] CC: [id number]
[2018-03-03] VITALS: BP 103/65
[2018-03-03] MEDS: Morphine Sulfate 4mg/ml Inj (IV USE ONLY) IVP PRN ×6 (01:43→22:45)
[2018-03-03 04:00] VITALS: BP 104/64
[2018-03-03] MEDS: metroNIDAZOLE 250mg tab ORAL SCH ×5 (05:54→23:47)
[2018-03-03] MEDS: D5NS 1,000 ML IV SCH ×2 (05:56→15:57)
[2018-03-03 08:00] VITALS: BP 102/68
[2018-03-03 08:24] LABS: HEMATOCRIT 23.4 % (42.0-52.0); HEMOGLOBIN 8.1 G/DL (14.2-18.0); MEAN CORPUSCULAR VOLUME 97 FL (80-99); PLATELET COUNT 36 K/UL (150-450); RED BLOOD COUNT 2.42 M/UL (4.70-6.10); WHITE BLOOD COUNT 4.3 K/UL (4.8-10.8)
[2018-03-03 08:41] LABS: INR 1.5 (0.9-1.1)
[2018-03-03 09:02] LABS: ALANINE AMINOTRANSFERASE 21 U/L (12-78); ALBUMIN 2.1 G/DL (3.4-5.0); ALBUMIN/GLOBULIN RATIO 0.7 (1.0-2.7); ALKALINE PHOSPHATASE 167 U/L (46-116); ANION GAP 2 mmol/L (5-15); ASPARTATE AMINO TRANSFERASE 41 U/L (15-37); BLOOD UREA NITROGEN 4 mg/dL (7-18); CALCIUM 8.2 MG/DL (8.5-10.1); CARBON DIOXIDE 31 MMOL/L (21-32); CHLORIDE 107 MMOL/L (98-107); CREATININE 0.7 MG/DL (0.55-1.30); POTASSIUM 4.3 MMOL/L (3.5-5.1); SODIUM 140 MMOL/L (136-145)
[2018-03-03 09:03] LABS: BILIRUBIN,DIRECT 0.9 MG/DL (0.0-0.3)
[2018-03-03] MEDS: Octreotide Acetate 500 MCG in Sodium Chloride 500ML 499 ML IV SCH ×2 (09:32→18:30)
--- NOTE | 2018-03-03 09:48 | General Progress Note ---
Assessment/Plan Assessment/Plan S: My tumhardy hursena O: appears comfortable, reported abdomen is painful PHYSICAL EXAMINATION: HEAD AND NECK: Normocephalic and atraumatic. CHEST: Clear to auscultation. HEART: S1 and S2. Regular rate and rhythm. ABDOMEN: Prominent. Hepatomegaly and splenomegaly. NEUROLOGIC: The patient is awake, alert, and oriented x3. PSYCHIATRIC: Mood and affect is flat. LABORATORY AND DIAGNOSTIC DATA: Labs dated Mar 02 Reviewed Meds: Including morphin 4 mg every 4 hours for pain, Neupogen ASSESSMENT AND PLAN: 1. Acute on chronic upper GI bleed. 2. Liver cirrhosis. 3. HIV- pending lab results 4. Pancytopenia. 5. Alpha-1 antitrypsin deficiency - familial.( reported by patient) 6. GI and DVT prophylaxis. PLAN OF CARE: S/p Neupogen injection EGD per GI Keep the patient NPO. Subjective Allergies: Coded Allergies: ADHESIVE TAPE (Verified Allergy, Unknown, 11/13/17) BEE VENOM PROTEIN (HONEY BEE) (Verified Allergy, Unknown, 11/13/17) PENICILLINS (Verified Allergy, Unknown, 11/13/17) Objective Last 24 Hour Vital Signs Date Time Temp Pulse Resp B/P (MAP) Pulse Ox O2 Delivery O2 Flow Rate FiO2 03/03/18 05:54 98.2 03/03/18 04:00 76 03/03/18 04:00 98.7 83 18 104/64 (77) 97 98.7 03/03/18 00:00 86 03/03/18 00:00 98.2 86 17 103/65 (78) 100 98.2 03/02/18 21:00 Room Air 03/02/18 20:00 78 18 Room Air 21 03/02/18 20:00 77 03/02/18 20:00 97.5 83 18 129/87 (101) 99 97.5 03/02/18 16:00 76 03/02/18 16:00 98.4 81 18 118/70 (86) 99 98.4 03/02/18 12:00 82 03/02/18 12:00 97.9 79 18 114/69 (84) 96 97.9 03/02/18 10:39 Room Air Intake and Output 03/02/18 03/03/18 19:00 07:00 Intake Total 240 ml 1041 ml Output Total 1750 ml 2700 ml Balance -1510 ml -1659 ml Intake Oral 240 ml 600 ml IV Total 441 ml Output Urine Total 1750 ml 2700 ml # Bowel Movements 1 Laboratory Tests 03/02/18 12:30: White Blood Count 1.2*L, Red Blood Count 2.35L, Hemoglobin 7.6L, Hematocrit 22.4L, Mean Corpuscular Volume 96, Mean Corpuscular Hemoglobin 32.5H, Mean Corpuscular Hemoglobin Concent 34.0, Red Cell Distribution Width 18.3H, Platelet Count 37L, Mean Platelet Volume 8.6, Neutrophils (%) (Auto) , Lymphocytes (%) (Auto) , Monocytes (%) (Auto) , Eosinophils (%) (Auto) , Basophils (%) (Auto) , Differential Total Cells Counted 100, Neutrophils % ( Manual) 76H, Lymphocytes % (Manual) 16L, Monocytes % (Manual) 7, Eosinophils % ( Manual) 1, Basophils % (Manual) 0, Band Neutrophils 0, Platelet Estimate DecreasedL, Platelet Morphology Normal, Hypochromasia 1+, Anisocytosis 1+, Prothrombin Time 13.7H, Prothromb Time International Ratio 1.3H, Activated Partial Thromboplast Time 29, HIV (1&2) Antibody Rapid Negative 03/02/18 16:15: White Blood Count [Pending], Lymphocytes [Pending], Iron Level 142, Total Iron Binding Capacity 174L, Percent Iron Saturation 82H, Unsaturated Iron Binding 32L , Ferritin 144, Percent CD3 Cells [Pending], Absolute CD3 Count [Pending], Percent CD4 Cells [Pending], Absolute CD4 Count [Pending], T-Lymphocyte CD4/CD8 Ratio [Pending], Percent CD8 Cells [Pending], Absolute CD8 Count [Pending], Rapid Plasma Reagin [Pending], Hepatitis A IgM Antibody [Pending], Hepatitis B Surface Antigen [Pending], Hepatitis B Core IgM Antibody [Pending], Hepatitis C Antibody [Pending], HIV-1 RNA (PCR) log10 Value [Pending], HIV-1 RNA Ultraquantitative (PCR) [Pending] 03/03/18 07:30: White Blood Count 4.3#L, Red Blood Count 2.42L, Hemoglobin 8.1L, Hematocrit 23.4L, Mean Corpuscular Volume 97, Mean Corpuscular Hemoglobin 33.5H, Mean Corpuscular Hemoglobin Concent 34.6, Red Cell Distribution Width 19.0H, Platelet Count 36L, Mean Platelet Volume 6.3L, Neutrophils (%) (Auto) , Lymphocytes (%) (Auto) , Monocytes (%) (Auto) , Eosinophils (%) (Auto) , Basophils (%) (Auto) , Neutrophils % (Manual) [Pending], Lymphocytes % (Manual) [Pending], Platelet Estimate [Pending], Platelet Morphology [Pending], Prothrombin Time 15.4H, Prothromb Time International Ratio 1.5H, Sodium Level 140, Potassium Level 4.3, Chloride Level 107, Carbon Dioxide Level 31, Anion Gap 2L, Blood Urea Nitrogen 4L, Creatinine 0.7, Estimat Glomerular Filtration Rate > 60, Glucose Level 82, Calcium Level 8.2L, Total Bilirubin 4.0H, Direct Bilirubin 0.9H, Aspartate Amino Transf (AST/SGOT) 41H, Alanine Aminotransferase (ALT/SGPT) 21, Alkaline Phosphatase 167H, Total Protein 5.0L, Albumin 2.1L, Globulin 2.9, Albumin/Globulin Ratio 0.7L, Alpha Fetoprotein [Pending] Height (Feet): 6 Height (Inches): 1.00 Weight (Pounds): 180 Dalia Marshall MD Mar 03, 2018 09:48
[2018-03-03 12:00] VITALS: BP 110/75
--- NOTE | 2018-03-03 12:20 | GI Progress Note ---
Assessment/Plan Problems: (1) Hepatitis B virus infection ICD Codes: B19.10 - Unspecified viral hepatitis B without hepatic coma SNOMED: 62711872 (2) HIV (human immunodeficiency virus infection) ICD Codes: B20 - Human immunodeficiency virus [HIV] disease SNOMED: 83903441 (3) Rectal bleeding ICD Codes: K62.5 - Hemorrhage of anus and rectum SNOMED: 03016558 (4) Pakjf-8-nnhbhbvvayz deficiency ICD Codes: E88.01 - Nfoub-1-lhafmponrgi deficiency SNOMED: 42031920 Status: unchanged Status Narrative Discussed with Dr. Sandoval. Assessment/Plan - Alpha-1- antitrypsin deficiency - Hepatitis B Carrier - Cirrhosis with - portal HTN - varicies - ascites - encephalopathy - coagulopathy - UGIB - Leukopenia - gallstones Recommendations - Sandostatin gtt - PPI - platelet transfusion - clears --> NPO tonight - EGD tomorrow with banding - duplex TIPPS for further evaluation of patentcy and flow (patent on ultrasound ) - check INR - may need FFP as well - Heme eval / Neupogen - abx - Check AFP - evaluation of rectal lesions on CT once more stable Subjective Gastrointestinal/Abdominal: Reports: no symptoms, abdominal pain Objective Last 24 Hour Vital Signs Date Time Temp Pulse Resp B/P (MAP) Pulse Ox O2 Delivery O2 Flow Rate FiO2 03/03/18 10:49 98.2 03/03/18 10:19 98.2 03/03/18 09:00 Room Air 03/03/18 08:30 73 18 Room Air 03/03/18 08:00 97.3 78 20 102/68 (79) 95 97.3 03/03/18 05:54 98.2 03/03/18 04:00 76 03/03/18 04:00 98.7 83 18 104/64 (77) 97 98.7 03/03/18 00:00 86 03/03/18 00:00 98.2 86 17 103/65 (78) 100 98.2 03/02/18 21:00 Room Air 03/02/18 20:00 78 18 Room Air 21 03/02/18 20:00 77 03/02/18 20:00 97.5 83 18 129/87 (101) 99 97.5 03/02/18 16:00 76 03/02/18 16:00 98.4 81 18 118/70 (86) 99 98.4 Intake and Output 03/02/18 03/03/18 19:00 07:00 Intake Total 240 ml 1041 ml Output Total 1750 ml 2700 ml Balance -1510 ml -1659 ml Intake Oral 240 ml 600 ml IV Total 441 ml Output Urine Total 1750 ml 2700 ml # Bowel Movements 1 Laboratory Tests Test 03/02/18 12:30 03/02/18 16:15 03/03/18 07:30 White Blood Count 1.2 K/UL (4.8-10.8) *L Pending 4.3 K/UL (4.8-10.8) #L Red Blood Count 2.35 M/UL (4.70-6.10) L 2.42 M/UL (4.70-6.10) L Hemoglobin 7.6 G/DL (14.2-18.0) L 8.1 G/DL (14.2-18.0) L Hematocrit 22.4 % (42.0-52.0) L 23.4 % (42.0-52.0) L Mean Corpuscular Volume 96 FL (80-99) 97 FL (80-99) Mean Corpuscular Hemoglobin 32.5 PG (27.0-31.0) H 33.5 PG (27.0-31.0) H Mean Corpuscular Hemoglobin Concent 34.0 G/DL (32.0-36.0) 34.6 G/DL (32.0-36.0) Red Cell Distribution Width 18.3 % (11.6-14.8) H 19.0 % (11.6-14.8) H Platelet Count 37 K/UL (150-450) L 36 K/UL (150-450) L Mean Platelet Volume 8.6 FL (6.5-10.1) 6.3 FL (6.5-10.1) L Neutrophils (%) (Auto) % (45.0-75.0) % (45.0-75.0) Lymphocytes (%) (Auto) % (20.0-45.0) % (20.0-45.0) Monocytes (%) (Auto) % (1.0-10.0) % (1.0-10.0) Eosinophils (%) (Auto) % (0.0-3.0) % (0.0-3.0) Basophils (%) (Auto) % (0.0-2.0) % (0.0-2.0) Differential Total Cells Counted 100 100 Neutrophils % (Manual) 76 % (45-75) H 71 % (45-75) Lymphocytes % (Manual) 16 % (20-45) L 8 % (20-45) L Monocytes % (Manual) 7 % (1-10) 2 % (1-10) Eosinophils % (Manual) 1 % (0-3) 0 % (0-3) Basophils % (Manual) 0 % (0-2) 0 % (0-2) Band Neutrophils 0 % (0-8) 19 % (0-8) H Platelet Estimate Decreased L Decreased L Platelet Morphology Normal Normal Hypochromasia 1+ Anisocytosis 1+ 2+ Prothrombin Time 13.7 SEC (9.30-11.50) H 15.4 SEC (9.30-11.50) H Prothromb Time International Ratio 1.3 (0.9-1.1) H 1.5 (0.9-1.1) H Activated Partial Thromboplast Time 29 SEC (23-33) HIV (1&2) Antibody Rapid Negative (NEGATIVE) Lymphocytes Pending Iron Level 142 ug/dL (50-175) Total Iron Binding Capacity 174 ug/dL (250-450) L Percent Iron Saturation 82 % (15-50) H Unsaturated Iron Binding 32 ug/dL (112-346) L Ferritin 144 NG/ML (8-388) Percent CD3 Cells Pending Absolute CD3 Count Pending Percent CD4 Cells Pending Absolute CD4 Count Pending T-Lymphocyte CD4/CD8 Ratio Pending Percent CD8 Cells Pending Absolute CD8 Count Pending Rapid Plasma Reagin Pending Hepatitis A IgM Antibody Pending Hepatitis B Surface Antigen Pending Hepatitis B Core IgM Antibody Pending Hepatitis C Antibody Pending HIV-1 RNA (PCR) log10 Value Pending HIV-1 RNA Ultraquantitative (PCR) Pending Sodium Level 140 MMOL/L (136-145) Potassium Level 4.3 MMOL/L (3.5-5.1) Chloride Level 107 MMOL/L (98-107) Carbon Dioxide Level 31 MMOL/L (21-32) Anion Gap 2 mmol/L (5-15) L Blood Urea Nitrogen 4 mg/dL (7-18) L Creatinine 0.7 MG/DL (0.55-1.30) Estimat Glomerular Filtration Rate > 60 mL/min (>60) Glucose Level 82 MG/DL (74-106) Calcium Level 8.2 MG/DL (8.5-10.1) L Total Bilirubin 4.0 MG/DL (0.2-1.0) H Direct Bilirubin 0.9 MG/DL (0.0-0.3) H Aspartate Amino Transf (AST/SGOT) 41 U/L (15-37) H Alanine Aminotransferase (ALT/SGPT) 21 U/L (12-78) Alkaline Phosphatase 167 U/L (46-116) H Total Protein 5.0 G/DL (6.4-8.2) L Albumin 2.1 G/DL (3.4-5.0) L Globulin 2.9 g/dL Albumin/Globulin Ratio 0.7 (1.0-2.7) L Alpha Fetoprotein Pending Height (Feet): 6 Height (Inches): 1.00 Weight (Pounds): 180 General Appearance: WD/WN, no apparent distress, alert Cardiovascular: normal rate Respiratory/Chest: normal breath sounds, no respiratory distress Abdominal Exam: normal bowel sounds, non tender, soft Extremities: normal range of motion, non-tender Sada Sanders NP Mar 03, 2018 12:20
--- NOTE | 2018-03-03 14:40 | Diagnostic Imaging Report ---
Indication: Abdominal pain, history of TIPS which meets evaluation Technique: Grayscale and duplex images of the TIPS Comparison: Findings: Grayscale and duplex images demonstrate patency of the TIPS. Velocities were difficult to obtain, appear to be within normal limits upstream. Likely flow velocity elevation causing aliasing as well as difficult sonographic access makes it impossible to measure the flow in the mid and downstream TIPS. Patent portal veins, hepatic veins, and hepatic artery Impression: Patent TIPS. Flow velocities were technically difficult to measure but findings are suspicious for flow velocity elevation and therefore possible shunt stenosis. Consider evaluation with catheter angiography with consideration for possible intervention if clinically indicated
[2018-03-03 16:00] VITALS: BP 119/66
--- NOTE | 2018-03-03 18:15 | Consultation ---
DATE OF CONSULTATION: 03/03/2018 NOTE: "POOR AUDIO QUALITY" HEMATOLOGY/ONCOLOGY CONSULTATION CONSULTING PHYSICIAN: Marshall Dhillon M.D. REQUESTING PHYSICIAN: Dalia Marshall M.D. REASON FOR CONSULTATION: Evaluation of pancytopenia. ID: Dear Dr. Dalia Marshall, The patient is a pleasant 37-year-old male and I have seen him multiple times in the past for alpha-1 antitrypsin deficiency, liver cirrhosis, and history of ascites, at this time presents with rectal bleeding, status post TIPS before, history of hematochezia, . ID service was consulted for further evaluation and care. Denies any cough, sputum, shortness of breath and again, Hematology was consulted for further evaluation. PAST MEDICAL HISTORY: Alpha-1 antitrypsin deficiency, HIV, hepatitis B, cirrhosis, ascites. PAST SURGICAL HISTORY: TIPS, appendectomy. MEDICATIONS: Cipro, Flagyl. REVIEW OF SYSTEMS: CONSTITUTIONAL: No fever, chills, or night sweats. SKIN: No rashes, bumps, or itching. HEENT: No headache, hearing or vision changes. BREASTS: No lumps, pain, or discharge. PULMONARY: No cough, sputum, or shortness of breath. GASTROINTESTINAL: No nausea, vomiting, or diarrhea. GENITOURINARY: No dysuria, frequency, or urgency. MUSCULOSKELETAL: No joint swelling, muscle pain, or trauma. PHYSICAL EXAMINATION: VITAL SIGNS: Reviewed. GENERAL: No acute distress. PULMONARY: Decreased breath sounds. CARDIOVASCULAR: Regular rate. No S3 or S4. ABDOMEN: Soft, nontender, nondistended. EXTREMITIES: No cyanosis, swelling, or edema. LABORATORY DATA: WBC 4.3, hemoglobin 8.1, hematocrit 23, platelets 36,000. INR reviewed, it is 1.5. ASSESSMENT AND RECOMMENDATIONS: 1. Pancytopenia, potentially secondary to underlying hepatitis B, status postop TIPS, potentially due to endoscopy with Doppler study. Administer Neupogen. ANC goal above 1500. 2. Coagulopathy, likely secondary to underlying liver disease, hepatitis B. 3. GI bleed. 4. Liver cirrhosis due to underlying hepatitis B, history of alcohol use. 5. HIV/AIDS. ID service will follow. I appreciate the consultation. Marshall Dhillon M.D. DR: Gui JOB#: [id number] CC:
[2018-03-03 20:00] VITALS: BP 106/66
[2018-03-03] MEDS: Zolpidem 5mg tab ORAL PRN (22:44)
[2018-03-04] VITALS (10 sets, daily range): BP systolic 87–110; BP diastolic 50–71
[2018-03-04] MEDS: D5NS 1,000 ML IV SCH ×3 (01:57→21:58)
[2018-03-04] MEDS: Morphine Sulfate 4mg/ml Inj (IV USE ONLY) IVP PRN ×5 (02:46→20:19)
[2018-03-04] MEDS: Octreotide Acetate 500 MCG in Sodium Chloride 500ML 499 ML IV SCH ×2 (04:39→15:53)
[2018-03-04] MEDS: metroNIDAZOLE 250mg tab ORAL SCH ×4 (05:33→23:37)
[2018-03-04 07:54] LABS: HEMATOCRIT 24.4 % (42.0-52.0); HEMOGLOBIN 8.5 G/DL (14.2-18.0); MEAN CORPUSCULAR VOLUME 99 FL (80-99); PLATELET COUNT 30 K/UL (150-450); RED BLOOD COUNT 2.45 M/UL (4.70-6.10); RED CELL DISTRIBUTION WIDTH 18.9 % (11.6-14.8); WHITE BLOOD COUNT 3.8 K/UL (4.8-10.8)
[2018-03-04 08:51] LABS: ALANINE AMINOTRANSFERASE 24 U/L (12-78); ALBUMIN 2.2 G/DL (3.4-5.0); ALBUMIN/GLOBULIN RATIO 0.8 (1.0-2.7); ALKALINE PHOSPHATASE 169 U/L (46-116); ANION GAP 11 mmol/L (5-15); ASPARTATE AMINO TRANSFERASE 47 U/L (15-37); BILIRUBIN,TOTAL 2.9 MG/DL (0.2-1.0); BLOOD UREA NITROGEN 7 mg/dL (7-18); CALCIUM 7.6 MG/DL (8.5-10.1); CARBON DIOXIDE 25 MMOL/L (21-32); CHLORIDE 105 MMOL/L (98-107); CREATININE 0.6 MG/DL (0.55-1.30); POTASSIUM 4.2 MMOL/L (3.5-5.1); SODIUM 141 MMOL/L (136-145)
[2018-03-04 08:52] LABS: BILIRUBIN,DIRECT 0.6 MG/DL (0.0-0.3)
--- NOTE | 2018-03-04 09:41 | Diagnostic Imaging Report ---
APPROVED REPORT CPT Code: 08299 Present Symptoms Comments: BILATERAL LEGS PAIN. BILATERAL: Imaging reveals a patent deep venous system bilaterally. There is no evidence of thrombus within the femoral, popliteal or tibial segments. The greater saphenous veins are also within normal limits. Doppler indicates normal spontaneous flow within these segments.
[2018-03-04 10:04] LABS: INR 1.5 (0.9-1.1)
--- NOTE | 2018-03-04 11:09 | General Progress Note ---
Assessment/Plan Assessment/Plan S: My pain is better O: appears comfortable, reported abdomen is painful PHYSICAL EXAMINATION: HEAD AND NECK: Normocephalic and atraumatic. CHEST: Clear to auscultation. HEART: S1 and S2. Regular rate and rhythm. ABDOMEN: Prominent. Hepatomegaly and splenomegaly. NEUROLOGIC: The patient is awake, alert, and oriented x3. PSYCHIATRIC: Mood and affect is flat. LABORATORY AND DIAGNOSTIC DATA: Labs dated Mar 02 Reviewed Meds: Including morphin 4 mg every 4 hours for pain, Neupogen ASSESSMENT AND PLAN: 1. Acute on chronic upper GI bleed. 2. Liver cirrhosis. 3. Negative HIV , No evidence of 4. Pancytopenia. 5. Alpha-1 antitrypsin deficiency - familial.( reported by patient) 6. GI and DVT prophylaxis. PLAN OF CARE: S/p Neupogen injection EGD and TIPS function assessment per GI Subjective Allergies: Coded Allergies: ADHESIVE TAPE (Verified Allergy, Unknown, 11/13/17) BEE VENOM PROTEIN (HONEY BEE) (Verified Allergy, Unknown, 11/13/17) PENICILLINS (Verified Allergy, Unknown, 11/13/17) Objective Last 24 Hour Vital Signs Date Time Temp Pulse Resp B/P (MAP) Pulse Ox O2 Delivery O2 Flow Rate FiO2 03/04/18 07:41 79 16 Room Air 21 03/04/18 04:00 96.9 80 20 99/55 (70) 96 96.9 03/04/18 03:54 80 03/04/18 00:00 98.2 86 20 110/68 (82) 99 98.2 03/03/18 23:43 89 03/03/18 21:00 Room Air 03/03/18 20:16 81 18 Room Air 21 03/03/18 20:00 97.7 80 20 106/66 (79) 98 97.7 03/03/18 19:12 98.2 03/03/18 19:03 79 03/03/18 18:42 98.2 03/03/18 16:00 84 03/03/18 16:00 97.8 87 20 119/66 (83) 95 97.8 03/03/18 14:26 98.2 03/03/18 12:00 98.1 81 20 110/75 (87) 95 98.1 03/03/18 12:00 76 Intake and Output 03/03/18 03/04/18 19:00 07:00 Intake Total 360 ml 700 ml Output Total 1100 ml 400 ml Balance -740 ml 300 ml Intake Oral 360 ml 400 ml Blood Product 300 ml Output Urine Total 1100 ml 400 ml # Voids 3 Laboratory Tests 03/04/18 07:10: White Blood Count 3.8L, Red Blood Count 2.45L, Hemoglobin 8.5L, Hematocrit 24.4L , Mean Corpuscular Volume 99, Mean Corpuscular Hemoglobin 34.6H, Mean Corpuscular Hemoglobin Concent 34.9, Red Cell Distribution Width 18.9H, Platelet Count 30L, Mean Platelet Volume 12.4H, Neutrophils (%) (Auto) , Lymphocytes (%) (Auto) , Monocytes (%) (Auto) , Eosinophils (%) (Auto) , Basophils (%) (Auto) , Neutrophils % (Manual) [Pending], Lymphocytes % (Manual) [Pending], Platelet Estimate [Pending], Platelet Morphology [Pending], Sodium Level 141, Potassium Level 4.2, Chloride Level 105, Carbon Dioxide Level 25, Anion Gap 11, Blood Urea Nitrogen 7, Creatinine 0.6, Estimat Glomerular Filtration Rate > 60, Glucose Level 110H, Calcium Level 7.6L, Total Bilirubin 2.9H, Direct Bilirubin 0.6H, Aspartate Amino Transf (AST/SGOT) 47H, Alanine Aminotransferase (ALT/SGPT) 24, Alkaline Phosphatase 169H, Total Protein 5.0L, Albumin 2.2L, Globulin 2.8, Albumin/Globulin Ratio 0.8L 03/04/18 09:25: Prothrombin Time 15.5H, Prothromb Time International Ratio 1.5H, Activated Partial Thromboplast Time 34H Height (Feet): 6 Height (Inches): 1.00 Weight (Pounds): 180 Dalia Marshall MD Mar 04, 2018 11:09
[2018-03-04] MEDS ORDERED: LR 1000ml 1,000 ML IVLG SCH (12:25)
[2018-03-04] MEDS ORDERED: Meperidine 50mg/ml Inj(FOR RIGORS ONLY) IVP PRN (12:30)
[2018-03-04] MEDS ORDERED: Hydromorphone 0.5mg/0.5ml inj IVP PRN (12:30)
[2018-03-04] MEDS ORDERED: Norco 5mg/325mg tab ORAL PRN (12:30)
[2018-03-04] MEDS ORDERED: Labetalol 5mg/ml 20ml vial IV PRN (12:30)
[2018-03-04] MEDS ORDERED: Lidocaine 1% MPF 10mg/ml 5ml ONE (12:30)
[2018-03-04] MEDS ORDERED: Propofol 200mg/20ml IV ONE (12:30)
[2018-03-04] MEDS ORDERED: HYDROcodone/Acetamin 7.5/325 tab ORAL PRN (12:30)
[2018-03-04] MEDS ORDERED: fentaNYL 100 mcg/2 mL IV PRN (12:30)
[2018-03-04] MEDS ORDERED: Midazolam 2mg/2ml Inj IVP PRN (12:30)
[2018-03-04] MEDS ORDERED: Metoclopramide 10mg/2ml Inj IVP PRN (12:30)
[2018-03-04] MEDS ORDERED: Ketorolac 30mg Inj IV PRN ×2 (12:30)
[2018-03-04] MEDS ORDERED: Atropine Sulfate 0.4mg/ml inj IVP PRN (12:30)
[2018-03-04] MEDS ORDERED: DiphenhydrAMINE 50mg/ml Inj IVP PRN (12:30)
[2018-03-04] MEDS ORDERED: LORazepam Inj 2mg/ml 1ml IV PRN (12:30)
[2018-03-04] MEDS ORDERED: LR 1000ml ONE (12:30)
[2018-03-04] MEDS ORDERED: NS 500ML IVPB ONE (12:30)
[2018-03-04] MEDS ORDERED: oxyCODONE HCL/Acetaminophen 5/325mg ORAL PRN (12:30)
--- NOTE | 2018-03-04 12:39 | Endoscopy Procedure Note ---
Endoscopy Procedure Note General Indication for Procedure: gib Procedures Performed: EGD Operative Findings/Diagnosis: gastritis Specimen: yes Pt Tolerated Procedure Well: Yes Estimated Blood Loss: none Anesthesia Anesthesiologist: valarie Anesthesia: MAC Inserted Devices Implant(s) used?: No GI Core Measures 50 yrs or older w/o bx or poly: Not Applicable 10yrs. F/U not recommended: Not Applicable Santiago Sandoval MD Mar 04, 2018 12:39
--- NOTE | 2018-03-04 12:41 | Anethesia Preoperative Eval ---
Anesthesia Pre-op PMH/ROS General Date of Evaluation: Mar 04, 2018 Time of Evaluation: 12:26 Anesthesiologist: Jacinda ASA Score: ASA 3 Mallampati Score Class I : Soft palate, uvula, fauces, pillars visible Class II: Soft palate, uvula, fauces visible Class III: Soft palate, base of uvula visible Class IV: Only hard plate visible Mallampati Classification: Class II Surgeon: Lori Diagnosis: Abd Pain Surgical Procedure: EGD Anesthesia History: none Family History: no anesthesia problems Allergies: Coded Allergies: ADHESIVE TAPE (Verified Allergy, Unknown, 11/13/17) BEE VENOM PROTEIN (HONEY BEE) (Verified Allergy, Unknown, 11/13/17) PENICILLINS (Verified Allergy, Unknown, 11/13/17) Medications: see eMAR Past Medical History Gastrointestinal/Genitourinary: Reports: other - Cirrohsis, @1antitripsin Def HEENT: Reports: other - Thrombocytopenia, HIV Hematology/Immune: Reports: anemia Anesthesia Pre-op Phys. Exam Physician Exam Last Vital Signs Date Time Temp Pulse Resp B/P (MAP) Pulse Ox O2 Delivery O2 Flow Rate FiO2 03/04/18 11:47 96.9 03/04/18 07:41 79 16 Room Air 21 03/04/18 04:00 99/55 (70) 96 Constitutional: NAD Neurologic: CN 2-12 intact Cardiovascular: RRR Respiratory: CTA Gastrointestinal: S/NT/ND Airway Exam Mallampati Score: Class II MO: full ROM: limited Teeth: intact Anesthesia Pre-op A/P Labs Hematology Test 03/04/18 07:10 White Blood Count 3.8 K/UL (4.8-10.8) L Red Blood Count 2.45 M/UL (4.70-6.10) L Hemoglobin 8.5 G/DL (14.2-18.0) L Hematocrit 24.4 % (42.0-52.0) L Mean Corpuscular Volume 99 FL (80-99) Mean Corpuscular Hemoglobin 34.6 PG (27.0-31.0) H Mean Corpuscular Hemoglobin Concent 34.9 G/DL (32.0-36.0) Red Cell Distribution Width 18.9 % (11.6-14.8) H Platelet Count 30 K/UL (150-450) L Mean Platelet Volume 12.4 FL (6.5-10.1) H Neutrophils (%) (Auto) % (45.0-75.0) Lymphocytes (%) (Auto) % (20.0-45.0) Monocytes (%) (Auto) % (1.0-10.0) Eosinophils (%) (Auto) % (0.0-3.0) Basophils (%) (Auto) % (0.0-2.0) Differential Total Cells Counted 100 Neutrophils % (Manual) 87 % (45-75) H Lymphocytes % (Manual) 12 % (20-45) L Monocytes % (Manual) 1 % (1-10) Eosinophils % (Manual) 0 % (0-3) Basophils % (Manual) 0 % (0-2) Band Neutrophils 0 % (0-8) Platelet Estimate Decreased L Platelet Morphology Normal Anisocytosis 1+ Coagulation Test 03/04/18 09:25 Prothrombin Time 15.5 SEC (9.30-11.50) H Prothromb Time International Ratio 1.5 (0.9-1.1) H Activated Partial Thromboplast Time 34 SEC (23-33) H Chemistry Test 03/04/18 07:10 Sodium Level 141 MMOL/L (136-145) Potassium Level 4.2 MMOL/L (3.5-5.1) Chloride Level 105 MMOL/L (98-107) Carbon Dioxide Level 25 MMOL/L (21-32) Anion Gap 11 mmol/L (5-15) Blood Urea Nitrogen 7 mg/dL (7-18) Creatinine 0.6 MG/DL (0.55-1.30) Estimat Glomerular Filtration Rate > 60 mL/min (>60) Glucose Level 110 MG/DL (74-106) H Calcium Level 7.6 MG/DL (8.5-10.1) L Total Bilirubin 2.9 MG/DL (0.2-1.0) H Direct Bilirubin 0.6 MG/DL (0.0-0.3) H Aspartate Amino Transf (AST/SGOT) 47 U/L (15-37) H Alanine Aminotransferase (ALT/SGPT) 24 U/L (12-78) Alkaline Phosphatase 169 U/L (46-116) H Total Protein 5.0 G/DL (6.4-8.2) L Albumin 2.2 G/DL (3.4-5.0) L Globulin 2.8 g/dL Albumin/Globulin Ratio 0.8 (1.0-2.7) L Risk Assessment & Plan Assessment: ASA 3 Plan: GA Status Change Before Surgery: Jon Ponce MD Mar 04, 2018 12:41
--- NOTE | 2018-03-04 12:42 | Immediate Post-Op Evaluation ---
Immediate Post-Op Evalulation Immediate Post-Op Evalulation Procedure: EGD Date of Evaluation: Mar 04, 2018 Time of Evaluation: 13:04 IV Fluids: 500 LR Blood Products: 0 Estimated Blood Loss: 1 Urinary Output: 0 Blood Pressure Systolic: 92 Blood Pressure Diastolic: 51 Pulse Rate: 71 Respiratory Rate: 16 O2 Sat by Pulse Oximetry: 100 Temperature (Fahrenheit): 98.4 Pain Score (1-10): 2 Nausea: No Vomiting: No Complications 0 Patient Status: awake, reacts, patent, none Hydration Status: adequate Jon Monaco MD Mar 04, 2018 12:42
--- NOTE | 2018-03-04 12:45 | 48 Hour Post Anesthesia Eval ---
Post Anesthesia Evaluation Procedure: EGD Date of Evaluation: Mar 04, 2018 Time of Evaluation: 15:12 Blood Pressure Systolic: 111 0: 64 Pulse Rate: 72 Respiratory Rate: 18 Temperature (Fahrenheit): 98.6 O2 Sat by Pulse Oximetry: 100 Airway: patent Nausea: No Vomiting: No Pain Intensity: 0 Hydration Status: adequate Cardiopulmonary Status: Stable Mental Status/LOC: patient returned to baseline Follow-up Care/Observations: 0 Post-Anesthesia Complications: 0 Follow-up care needed: ready to discharge Jon Monaco MD Mar 04, 2018 12:45
--- NOTE | 2018-03-04 12:46 | Pre-Procedure Note/Attestation ---
Pre-Procedure Note/Attestation Complete Prior to Procedure Planned Procedure: not applicable Procedure Narrative: egd Indications for Procedure Pre-Operative Diagnosis: gib Attestation I attest that I discussed the nature of the procedure; its benefits; risks and complications; and alternatives (and the risks and benefits of such alternatives ), prior to the procedure, with the patient (or the patient's legal enrollment eligibility representative). I attest that, if there was a reasonable possibility of needing a blood transfusion, the patient (or the patient's legal enrollment eligibility representative) was given the [facility] standardized written summary, pursuant to the [place] An[employer] Blood Safety Act ([place] Health and Safety Code # 1645, as amended). I attest that I re-evaluated the patient just prior to the surgery and that there has been no change in the patient's H&P, except as documented below: Santiago Sandoval MD Mar 04, 2018 12:46
--- NOTE | 2018-03-04 14:58 | General Progress Note ---
Assessment/Plan Assessment/Plan ASSESSMENT AND RECOMMENDATIONS: 1. Pancytopenia, potentially secondary to underlying hepatitis B, status postop TIPS, potentially due to endoscopy with Doppler study. Administer Neupogen. ANC goal above 1500. ==> hepatitis panel has been re-ordered --> imaging has been reviewed --> gi for tips eval with egd 2. Coagulopathy, likely secondary to underlying liver disease, hepatitis B. ==> vit K prn if patient bleeding 3. Acute GI bleed. inr is elevated 4. Liver cirrhosis due to underlying hepatitis B, history of alcohol use. 5. HIV/AIDS. ID service will follow. 6. Hepatitis B Subjective Constitutional: Denies: no symptoms, chills, diaphoresis, fever, malaise, weakness, other HEENT: Denies: no symptoms, eye pain, blurred vision, tearing, double vision, ear pain, ear discharge, nose pain, nose congestion, throat pain, throat swelling, mouth pain, mouth swelling, other Cardiovascular: Denies: no symptoms, chest pain, edema, irregular heart rate, lightheadedness, palpitations, syncope, other Respiratory: Denies: no symptoms, cough, orthopnea, shortness of breath, SOB with excertion, SOB at rest, sputum, stridor, wheezing, other Gastrointestinal/Abdominal: Denies: no symptoms, abdomen distended, abdominal pain, black stools, tarry stools, blood in stool, constipated, diarrhea, difficulty swallowing, nausea, poor appetite, poor fluid intake, rectal bleeding , vomiting, other Genitourinary: Denies: no symptoms, burning, discharge, frequency, flank pain, hematuria, incontinence, pain, urgency, other Neurologic/Psychiatric: Denies: no symptoms, anxiety, depressed, emotional problems, headache, numbness, paresthesia, pre-existing deficit, seizure, tingling, tremors, weakness, other Endocrine: Denies: no symptoms, excessive sweating, flushing, intolerance to cold, intolerance to heat, increased hunger, increased thirst, increased urine, unexplained weight gain, unexplained weight loss, other Hematologic/Lymphatic: Denies: no symptoms, anemia, easy bleeding, easy bruising, other Allergies: Coded Allergies: ADHESIVE TAPE (Verified Allergy, Unknown, 11/13/17) BEE VENOM PROTEIN (HONEY BEE) (Verified Allergy, Unknown, 11/13/17) PENICILLINS (Verified Allergy, Unknown, 11/13/17) Subjective sp egd and tips Objective Last 24 Hour Vital Signs Date Time Temp Pulse Resp B/P (MAP) Pulse Ox O2 Delivery O2 Flow Rate FiO2 03/04/18 13:15 67 12 105/66 100 Room Air 03/04/18 13:00 67 12 89/51 100 Simple Mask 6 03/04/18 12:55 97.4 69 12 89/51 100 Simple Mask 6 97.4 03/04/18 12:55 209.5 72 18 100 03/04/18 12:54 209.1 71 16 100 03/04/18 12:53 97.4 71 12 90/53 100 Simple Mask 6 97.4 03/04/18 12:00 97.7 69 18 109/63 (78) 98 97.7 03/04/18 11:47 96.9 03/04/18 11:17 96.9 03/04/18 09:00 Room Air 03/04/18 08:00 97.9 67 18 87/50 (62) 95 97.9 03/04/18 07:41 79 16 Room Air 21 03/04/18 04:00 96.9 80 20 99/55 (70) 96 96.9 03/04/18 03:54 80 03/04/18 00:00 98.2 86 20 110/68 (82) 99 98.2 03/03/18 23:43 89 03/03/18 21:00 Room Air 03/03/18 20:16 81 18 Room Air 21 03/03/18 20:00 97.7 80 20 106/66 (79) 98 97.7 03/03/18 19:03 79 03/03/18 18:42 98.2 03/03/18 16:00 84 03/03/18 16:00 97.8 87 20 119/66 (83) 95 97.8 Intake and Output 03/03/18 03/04/18 19:00 07:00 Intake Total 360 ml 700 ml Output Total 1100 ml 400 ml Balance -740 ml 300 ml Intake Oral 360 ml 400 ml Blood Product 300 ml Output Urine Total 1100 ml 400 ml # Voids 3 Laboratory Tests 03/04/18 07:10: White Blood Count 3.8L, Red Blood Count 2.45L, Hemoglobin 8.5L, Hematocrit 24.4L , Mean Corpuscular Volume 99, Mean Corpuscular Hemoglobin 34.6H, Mean Corpuscular Hemoglobin Concent 34.9, Red Cell Distribution Width 18.9H, Platelet Count 30L, Mean Platelet Volume 12.4H, Neutrophils (%) (Auto) , Lymphocytes (%) (Auto) , Monocytes (%) (Auto) , Eosinophils (%) (Auto) , Basophils (%) (Auto) , Differential Total Cells Counted 100, Neutrophils % ( Manual) 87H, Lymphocytes % (Manual) 12L, Monocytes % (Manual) 1, Eosinophils % ( Manual) 0, Basophils % (Manual) 0, Band Neutrophils 0, Platelet Estimate DecreasedL, Platelet Morphology Normal, Anisocytosis 1+, Sodium Level 141, Potassium Level 4.2, Chloride Level 105, Carbon Dioxide Level 25, Anion Gap 11, Blood Urea Nitrogen 7, Creatinine 0.6, Estimat Glomerular Filtration Rate > 60, Glucose Level 110H, Calcium Level 7.6L, Total Bilirubin 2.9H, Direct Bilirubin 0.6H, Aspartate Amino Transf (AST/SGOT) 47H, Alanine Aminotransferase (ALT/SGPT ) 24, Alkaline Phosphatase 169H, Total Protein 5.0L, Albumin 2.2L, Globulin 2.8 , Albumin/Globulin Ratio 0.8L 03/04/18 09:25: Prothrombin Time 15.5H, Prothromb Time International Ratio 1.5H, Activated Partial Thromboplast Time 34H Height (Feet): 6 Height (Inches): 1.00 Weight (Pounds): 180 General Appearance: no apparent distress EENT: normal ENT inspection Neck: supple Cardiovascular: normal rate Respiratory/Chest: normal breath sounds Abdomen: non tender Extremities: non-tender Edema: 1+ Leg (L), 1+ Leg (R) Edema: trace edema Neurologic: alert Skin: warm/dry Marshall Dhillon MD Mar 04, 2018 14:58
--- NOTE | 2018-03-04 15:17 | Infectious Diseases Prog Note ---
Assessment/Plan Problems: (1) Hepatitis B virus infection Assessment & Plan: chronic carrier , on tenofovir for chronic suppression to prevent accelerated liver damage from alpha 1 antitrypsin deficiency (2) [id number] deficiency Assessment & Plan: continue supportive care , management as per GI and pulmonary (3) Rectal bleeding Assessment & Plan: monitor H/H, transfuse as needed , GI is following Subjective Constitutional: Reports: fatigue, anorexia HEENT: Reports: no symptoms Respiratory: Reports: no symptoms Breasts: Reports: no symptoms Cardiovascular: Reports: no symptoms Gastrointestinal/Abdominal: Reports: blood in stool, bloating Genitourinary: Reports: no symptoms Neurologic: Reports: no symptoms Psychiatric: Reports: no symptoms Skin: Reports: no symptoms Endocrine: Reports: no symptoms Hematologic: Reports: no symptoms Musculoskeletal: Reports: no symptoms Allergies: Coded Allergies: ADHESIVE TAPE (Verified Allergy, Unknown, 11/13/17) BEE VENOM PROTEIN (HONEY BEE) (Verified Allergy, Unknown, 11/13/17) PENICILLINS (Verified Allergy, Unknown, 11/13/17) Objective Vital Signs Last 24 Hour Vital Signs Date Time Temp Pulse Resp B/P (MAP) Pulse Ox O2 Delivery O2 Flow Rate FiO2 03/04/18 13:15 67 12 105/66 100 Room Air 03/04/18 13:00 67 12 89/51 100 Simple Mask 6 03/04/18 12:55 97.4 69 12 89/51 100 Simple Mask 6 97.4 03/04/18 12:55 209.5 72 18 100 03/04/18 12:54 209.1 71 16 100 03/04/18 12:53 97.4 71 12 90/53 100 Simple Mask 6 97.4 03/04/18 12:00 97.7 69 18 109/63 (78) 98 97.7 03/04/18 11:47 96.9 03/04/18 11:17 96.9 03/04/18 09:00 Room Air 03/04/18 08:00 97.9 67 18 87/50 (62) 95 97.9 03/04/18 07:41 79 16 Room Air 21 03/04/18 04:00 96.9 80 20 99/55 (70) 96 96.9 03/04/18 03:54 80 03/04/18 00:00 98.2 86 20 110/68 (82) 99 98.2 03/03/18 23:43 89 03/03/18 21:00 Room Air 03/03/18 20:16 81 18 Room Air 21 03/03/18 20:00 97.7 80 20 106/66 (79) 98 97.7 03/03/18 19:03 79 03/03/18 18:42 98.2 03/03/18 16:00 84 03/03/18 16:00 97.8 87 20 119/66 (83) 95 97.8 Height (Feet): 6 Height (Inches): 1.00 Weight (Pounds): 180 General Appearance: WD/WN, no acute distress HEENT: normocephalic, atraumatic, anicteric, mucous membranes moist, PERRL, supple, no JVD Respiratory/Chest: chest wall non-tender, lungs clear, normal breath sounds, no respiratory distress, no accessory muscle use Cardiovascular: normal peripheral pulses, normal rate, regular rhythm, no gallop/murmur, no JVD Abdomen: normal bowel sounds, soft, non tender, no organomegaly, non distended , no mass, no scars Extremities: no cyanosis, no clubbing Skin: no rash, no lesions, no ulcers Neurologic/Psychiatric: alert, oriented x 3 Lymphatic: no neck adenopathy, no groin adenopathy Laboratory Tests Test 03/04/18 07:10 03/04/18 09:25 White Blood Count 3.8 K/UL (4.8-10.8) L Red Blood Count 2.45 M/UL (4.70-6.10) L Hemoglobin 8.5 G/DL (14.2-18.0) L Hematocrit 24.4 % (42.0-52.0) L Mean Corpuscular Volume 99 FL (80-99) Mean Corpuscular Hemoglobin 34.6 PG (27.0-31.0) H Mean Corpuscular Hemoglobin Concent 34.9 G/DL (32.0-36.0) Red Cell Distribution Width 18.9 % (11.6-14.8) H Platelet Count 30 K/UL (150-450) L Mean Platelet Volume 12.4 FL (6.5-10.1) H Neutrophils (%) (Auto) % (45.0-75.0) Lymphocytes (%) (Auto) % (20.0-45.0) Monocytes (%) (Auto) % (1.0-10.0) Eosinophils (%) (Auto) % (0.0-3.0) Basophils (%) (Auto) % (0.0-2.0) Differential Total Cells Counted 100 Neutrophils % (Manual) 87 % (45-75) H Lymphocytes % (Manual) 12 % (20-45) L Monocytes % (Manual) 1 % (1-10) Eosinophils % (Manual) 0 % (0-3) Basophils % (Manual) 0 % (0-2) Band Neutrophils 0 % (0-8) Platelet Estimate Decreased L Platelet Morphology Normal Anisocytosis 1+ Sodium Level 141 MMOL/L (136-145) Potassium Level 4.2 MMOL/L (3.5-5.1) Chloride Level 105 MMOL/L (98-107) Carbon Dioxide Level 25 MMOL/L (21-32) Anion Gap 11 mmol/L (5-15) Blood Urea Nitrogen 7 mg/dL (7-18) Creatinine 0.6 MG/DL (0.55-1.30) Estimat Glomerular Filtration Rate > 60 mL/min (>60) Glucose Level 110 MG/DL (74-106) H Calcium Level 7.6 MG/DL (8.5-10.1) L Total Bilirubin 2.9 MG/DL (0.2-1.0) H Direct Bilirubin 0.6 MG/DL (0.0-0.3) H Aspartate Amino Transf (AST/SGOT) 47 U/L (15-37) H Alanine Aminotransferase (ALT/SGPT) 24 U/L (12-78) Alkaline Phosphatase 169 U/L (46-116) H Total Protein 5.0 G/DL (6.4-8.2) L Albumin 2.2 G/DL (3.4-5.0) L Globulin 2.8 g/dL Albumin/Globulin Ratio 0.8 (1.0-2.7) L Prothrombin Time 15.5 SEC (9.30-11.50) H Prothromb Time International Ratio 1.5 (0.9-1.1) H Activated Partial Thromboplast Time 34 SEC (23-33) H Current Medications Medications (Trade) Dose Ordered Sig/Roberto Route PRN Reason Start Time Stop Time Status Last Admin Dose Admin Acetaminophen (Tylenol) 650 mg Q4H PRN ORAL Mild Pain (Pain Scale 1-3) 03/01/18 23:00 03/31/18 22:59 Acetaminophen/ Hydrocodone Bitart (Cades 5/325) 1 tab Q1H PRN ORAL Mild Pain (Pain Scale 1-3) 03/04/18 12:30 03/04/18 20:00 Acetaminophen/ Hydrocodone Bitart (Cades 7.5/325) 1 tab Q1H PRN ORAL Moderate Pain (Pain Scale 4-6) 03/04/18 12:30 03/04/18 20:00 Al Hydroxide/Mg Hydroxide (Mylanta) 15 ml Q1H PRN ORAL gi upset 03/04/18 12:30 03/04/18 20:00 Albuterol/ Ipratropium (Albuterol/ Ipratropium) 3 ml PRN PRN HHN Shortness of Breath 03/01/18 23:00 03/06/18 22:59 Atropine Sulfate (Atropine 0.4mg/ ml) 0.5 mg Q5M PRN IVP HR<40 03/04/18 12:30 03/04/18 20:00 Ciprofloxacin (Cipro 250mg tab) 250 mg EVERY 12 HOURS ORAL 03/02/18 21:00 03/09/18 20:59 03/04/18 11:16 Dextrose (Dextrose 50%) 25 ml STAT PRN IV Hypoglycemia 03/01/18 23:00 03/31/18 22:59 Dextrose (Dextrose 50%) 50 ml STAT PRN IV Hypoglycemia 03/01/18 23:00 03/31/18 22:59 Dextrose/Sodium Chloride 1,000 ml @ 100 mls/hr Q10H IV 03/01/18 23:57 03/31/18 23:56 03/02/18 20:49 Diphenhydramine HCl (Benadryl) 25 mg Q15M PRN IVP Itching 03/04/18 12:30 03/04/18 20:00 Fentanyl Citrate (Sublimaze 100 mcg/2 mL) 25 mcg Q10M PRN IV Moderate Pain (Pain Scale 4-6) 03/04/18 12:30 03/04/18 20:00 Hydralazine HCl (Apresoline) 5 mg Q30M PRN IV SBP>160 / DBP>90 03/04/18 12:30 03/04/18 20:00 Hydromorphone HCl (Dilaudid) 0.5 mg Q15M PRN IVP Severe Pain (Pain Scale 7-10) 03/04/18 12:30 03/04/18 20:00 Ketorolac Tromethamine (Toradol 30mg) 15 mg Q1H PRN IV Moderate Breakthru Pain (5-7) 03/04/18 12:30 03/04/18 20:00 Ketorolac Tromethamine (Toradol 30mg) 30 mg Q1H PRN IV Severe Breakthru Pain (>7) 03/04/18 12:30 03/04/18 20:00 Labetalol HCl (Normodyne) 5 mg Q10M PRN IV SBP>160 / DBP>90 03/04/18 12:30 03/04/18 20:00 Lorazepam (Ativan 2mg/ml 1ml) 1 mg Q15M PRN IV For Anxiety 03/04/18 12:30 03/04/18 20:00 Lorazepam (Ativan) 1 mg Q4H PRN ORAL For Anxiety 03/01/18 23:00 03/08/18 22:59 Meperidine HCl (Demerol) 25 mg Q5M PRN IVP Shivering.May repeat x 1 03/04/18 12:30 03/04/18 20:00 Metoclopramide HCl (Reglan) 10 mg Q1H PRN IVP Nausea & Vomiting 03/04/18 12:30 03/04/18 20:00 Metronidazole (Flagyl) 250 mg Q6HR ORAL 03/02/18 18:00 03/09/18 17:59 03/04/18 11:16 Midazolam HCl (Versed 2mg/2ml vial) 1 mg Q15M PRN IVP For Anxiety 03/04/18 12:30 03/04/18 20:00 Morphine Sulfate (Morphine Sulfate) 4 mg Q4H PRN IVP Pain 4-10 03/02/18 13:30 03/09/18 13:29 03/04/18 11:17 Octreotide Acetate 500 mcg/ Sodium Chloride 500 ml @ 50 mls/hr Q10H IV 03/02/18 12:30 04/01/18 12:29 03/04/18 04:39 Ondansetron HCl (Zofran) 4 mg Q1H PRN IVP Nausea & Vomiting 03/04/18 12:30 03/04/18 20:00 Ondansetron HCl (Zofran) 4 mg Q6H PRN IVP Nausea & Vomiting 03/01/18 23:00 03/31/18 22:59 03/02/18 20:52 Oxycodone/ Acetaminophen (Percocet 5-325) 1 tab Q1H PRN ORAL Severe Pain (Pain Scale 7-10) 03/04/18 12:30 03/04/18 20:00 Pantoprazole (Protonix) 40 mg EVERY 12 HOURS ORAL 03/02/18 21:00 04/01/18 20:59 03/04/18 11:17 Polyethylene Glycol/ Electrolytes (Nulytely) 4,000 ml ONCE ORAL 03/04/18 16:00 03/04/18 18:00 Zolpidem Tartrate (Ambien) 5 mg DAILYPRN PRN ORAL Insomnia 03/01/18 23:00 03/08/18 22:59 03/03/18 22:44 Tobin Lezama M.D. Mar 04, 2018 15:17
[2018-03-04] MEDS ORDERED: Nulytely 4L ORAL SCH (16:00)
--- NOTE | 2018-03-04 16:30 | Procedure Note ---
DATE OF PROCEDURE: 03/04/2018 SURGEON: Santiago Sandoval M.D. PROCEDURE: Upper endoscopy with biopsy. ANESTHESIA: Per Dr. Monaco. INSTRUMENT: Olympus adult flexible upper endoscope. INDICATION: Upper GI bleeding. REASON FOR PROCEDURE: The procedure, risks, benefits, and possible consequences, including hemorrhage, aspiration, perforation and infection, and alternative treatments, were explained to the patient/legal guardian by Dr. Santiago Sandoval and the patient/legal guardian understood and accepted these risks. DESCRIPTION OF PROCEDURE: After informed consent was obtained and the patient was adequately sedated, Olympus upper endoscope was advanced from the mouth into the second portion of duodenum and retroflexion was performed of the stomach. The patient had no evidence of any gastric nor esophageal varices. No evidence of any upper GI bleeding. There was one small polyp in the prepyloric region, which was biopsied. The rest of the examination was grossly within normal limits. SUMMARY OF FINDINGS: Gastric polyps status post biopsy. Otherwise, normal upper endoscopic examination. RECOMMENDATION: Colonoscopy for tomorrow. We will plan for prep and colonoscopy. Santiago Sandoval M.D. DR: ASHLEY JOB#: [id number] CC:
--- NOTE | 2018-03-04 21:31 | Cardiology Report ---
APPROVED REPORT EKG Measurement Heart [id number] Normal sinus rhythm Prolonged QT Abnormal ECG
[2018-03-05] VITALS (10 sets, daily range): BP systolic 89–114; BP diastolic 47–77
[2018-03-05] MEDS: Octreotide Acetate 500 MCG in Sodium Chloride 500ML 499 ML IV SCH ×3 (00:20→21:34)
[2018-03-05] MEDS: Morphine Sulfate 4mg/ml Inj (IV USE ONLY) IVP PRN ×6 (00:20→21:35)
[2018-03-05] MEDS: Zolpidem 5mg tab ORAL PRN ×2 (00:28→21:43)
[2018-03-05] MEDS ORDERED: Fleet's Enema 133ml RECTAL ONE ×2 (01:00→06:45)
[2018-03-05] MEDS: metroNIDAZOLE 250mg tab ORAL SCH ×3 (05:32→17:36)
[2018-03-05] MEDS: D5NS 1,000 ML IV SCH ×2 (07:57→17:36)
--- NOTE | 2018-03-05 08:12 | Anethesia Preoperative Eval ---
Anesthesia Pre-op PMH/ROS General Date of Evaluation: Mar 05, 2018 Time of Evaluation: 08:07 Anesthesiologist: laura ASA Score: ASA 3 Mallampati Score Class I : Soft palate, uvula, fauces, pillars visible Class II: Soft palate, uvula, fauces visible Class III: Soft palate, base of uvula visible Class IV: Only hard plate visible Mallampati Classification: Class II Surgeon: yoselyn Diagnosis: gi bleed Surgical Procedure: colonoscopy Anesthesia History: none Social History: smoking - unknown Family History: no anesthesia problems Allergies: Coded Allergies: ADHESIVE TAPE (Verified Allergy, Unknown, 11/13/17) BEE VENOM PROTEIN (HONEY BEE) (Verified Allergy, Unknown, 11/13/17) PENICILLINS (Verified Allergy, Unknown, 11/13/17) Medications: see eMAR Past Medical History Gastrointestinal/Genitourinary: Reports: other - [id number], liver cirrhosis, Hematology/Immune: Reports: anemia, other - [id number], hiv, PSxH Narrative: appendectomy Anesthesia Pre-op Phys. Exam Physician Exam Last Vital Signs Date Time Temp Pulse Resp B/P (MAP) Pulse Ox O2 Delivery O2 Flow Rate FiO2 03/05/18 04:00 77 03/05/18 04:00 97.8 18 102/62 (75) 99 97.8 03/04/18 21:00 Room Air 03/04/18 20:30 21 03/04/18 13:00 6 Constitutional: NAD Neurologic: CN 2-12 intact Cardiovascular: RRR Respiratory: CTA Gastrointestinal: S/NT/ND Airway Exam Mallampati Score: Class II MO: full Neck: flexible right ij iv access TMD: 2fb ROM: full Teeth: intact Anesthesia Pre-op A/P Labs Coagulation Test 03/04/18 09:25 Prothrombin Time 15.5 SEC (9.30-11.50) H Prothromb Time International Ratio 1.5 (0.9-1.1) H Activated Partial Thromboplast Time 34 SEC (23-33) H Risk Assessment & Plan Assessment: asa3 Plan: mac Status Change Before Surgery: No Pre-Antibiotics Drug: Lian Araiza MD Mar 05, 2018 08:12
[2018-03-05] MEDS ORDERED: Midazolam 2mg/2ml Inj IVP PRN (08:15)
[2018-03-05] MEDS ORDERED: Atropine Inj 1mg/10ml Syr IV PRN (08:15)
[2018-03-05] MEDS ORDERED: fentaNYL 100 mcg/2 mL IV PRN (08:15)
[2018-03-05] MEDS ORDERED: DiphenhydrAMINE 50mg/ml Inj IVP PRN (08:15)
[2018-03-05 08:36] LABS: HEMATOCRIT 27.2 % (42.0-52.0); HEMOGLOBIN 9.3 G/DL (14.2-18.0); MEAN CORPUSCULAR VOLUME 97 FL (80-99); PLATELET COUNT 56 K/UL (150-450); RED CELL DISTRIBUTION WIDTH 18.2 % (11.6-14.8); WHITE BLOOD COUNT 2.9 K/UL (4.8-10.8)
[2018-03-05 08:49] LABS: ANION GAP 7 mmol/L (5-15); BLOOD UREA NITROGEN 6 mg/dL (7-18); CALCIUM 8.2 MG/DL (8.5-10.1); CARBON DIOXIDE 30 MMOL/L (21-32); CHLORIDE 105 MMOL/L (98-107); CREATININE 0.8 MG/DL (0.55-1.30); POTASSIUM 3.9 MMOL/L (3.5-5.1); SODIUM 142 MMOL/L (136-145)
[2018-03-05 08:50] LABS: INR 1.5 (0.9-1.1)
[2018-03-05] MEDS ORDERED: Propofol 200mg/20ml IV ONE (09:00)
[2018-03-05] MEDS ORDERED: Lidocaine 1% MPF 10mg/ml 5ml ONE (09:00)
[2018-03-05] MEDS ORDERED: NS 500ML IVPB ONE (09:10)
--- NOTE | 2018-03-05 09:12 | Pre-Procedure Note/Attestation ---
Pre-Procedure Note/Attestation Complete Prior to Procedure Planned Procedure: not applicable Procedure Narrative: colonoscopy Indications for Procedure Pre-Operative Diagnosis: gib Attestation I attest that I discussed the nature of the procedure; its benefits; risks and complications; and alternatives (and the risks and benefits of such alternatives ), prior to the procedure, with the patient (or the patient's legal parts counter representative). I attest that, if there was a reasonable possibility of needing a blood transfusion, the patient (or the patient's legal parts counter representative) was given the [facility] standardized written summary, pursuant to the [place] Anita Blood Safety Act ([place] Health and Safety Code # 1645, as amended). I attest that I re-evaluated the patient just prior to the surgery and that there has been no change in the patient's H&P, except as documented below: Santiago Sandoval MD Mar 05, 2018 09:11
--- NOTE | 2018-03-05 09:34 | Endoscopy Procedure Note ---
Endoscopy Procedure Note General Indication for Procedure: gib Procedures Performed: colonoscopy Operative Findings/Diagnosis: poor prep Specimen: none Pt Tolerated Procedure Well: Yes Estimated Blood Loss: none Anesthesia Anesthesiologist: amber Anesthesia: MAC Inserted Devices Implant(s) used?: No Quality Did scope reach the cecum?: No Why scope didn't reach cecum: Bowel preparation poor Was there any complications?: No GI Core Measures 50 yrs or older w/o bx or poly: Not Applicable 10yrs. F/U not recommended: Not Applicable Santiago Sandoval MD Mar 05, 2018 09:34
--- NOTE | 2018-03-05 10:02 | Immediate Post-Op Evaluation ---
Immediate Post-Op Evalulation Immediate Post-Op Evalulation Procedure: colonoscopy Date of Evaluation: Mar 05, 2018 Time of Evaluation: 09:43 IV Fluids: 150ml 0.9ns Blood Products: none Estimated Blood Loss: negligible Blood Pressure Systolic: 89 Blood Pressure Diastolic: 50 Pulse Rate: 71 Respiratory Rate: 18 O2 Sat by Pulse Oximetry: 100 Temperature (Fahrenheit): 97.5 Pain Score (1-10): 0 Nausea: No Vomiting: No Complications none Patient Status: awake, reacts, patent Hydration Status: adequate Drug: Lian Araiza MD Mar 05, 2018 10:02
--- NOTE | 2018-03-05 10:03 | 48 Hour Post Anesthesia Eval ---
Post Anesthesia Evaluation Procedure: colonoscopy Date of Evaluation: Mar 05, 2018 Time of Evaluation: 10:02 Blood Pressure Systolic: 95 0: 64 Pulse Rate: 77 Respiratory Rate: 18 Temperature (Fahrenheit): 97.5 O2 Sat by Pulse Oximetry: 100 Airway: patent Nausea: No Vomiting: No Pain Intensity: 0 Hydration Status: adequate Cardiopulmonary Status: stable Mental Status/LOC: patient returned to baseline Post-Anesthesia Complications: none Follow-up care needed: N/A Lian Lee MD Mar 05, 2018 10:03
--- NOTE | 2018-03-05 10:32 | General Progress Note ---
Assessment/Plan Assessment/Plan S: My pain is better O: appears comfortable, sitting on his bed, tolerating PO PHYSICAL EXAMINATION: HEAD AND NECK: Normocephalic and atraumatic. CHEST: Clear to auscultation. HEART: S1 and S2. Regular rate and rhythm. ABDOMEN: Prominent. Hepatomegaly and splenomegaly. NEUROLOGIC: The patient is awake, alert, and oriented x3. PSYCHIATRIC: Mood and affect is flat. LABORATORY AND DIAGNOSTIC DATA: Labs dated Mar 02 Reviewed Meds: Including morphin 4 mg every 4 hours for pain, Neupogen ASSESSMENT AND PLAN: 1. Acute on chronic upper GI bleed. 2. Liver cirrhosis. 3. Negative HIV , No evidence of 4. Pancytopenia. 5. Alpha-1 antitrypsin deficiency - familial.( reported by patient) 6. GI and DVT prophylaxis. PLAN OF CARE: S/p Neupogen injection S/P EGD and TIPS function assessment per GI ok to followup as o/p for abnormal lab test ( syphilis) Subjective Allergies: Coded Allergies: ADHESIVE TAPE (Verified Allergy, Unknown, 11/13/17) BEE VENOM PROTEIN (HONEY BEE) (Verified Allergy, Unknown, 11/13/17) PENICILLINS (Verified Allergy, Unknown, 11/13/17) Objective Last 24 Hour Vital Signs Date Time Temp Pulse Resp B/P (MAP) Pulse Ox O2 Delivery O2 Flow Rate FiO2 03/05/18 10:03 207.5 77 18 100 03/05/18 10:02 207.5 71 18 100 03/05/18 09:56 98.0 69 14 94/53 100 Nasal Cannula 3 98.0 03/05/18 09:41 72 14 92/48 100 Simple Mask 6 03/05/18 09:36 69 13 89/47 100 Simple Mask 6 03/05/18 09:31 97.5 71 18 89/50 100 Simple Mask 6 97.5 03/05/18 09:21 97.5 03/05/18 08:51 97.8 03/05/18 04:00 77 03/05/18 04:00 97.8 79 18 102/62 (75) 99 97.8 03/05/18 00:00 98.1 83 20 101/67 (78) 99 98.1 03/05/18 00:00 93 03/04/18 21:00 Room Air 03/04/18 20:30 78 16 Room Air 21 03/04/18 20:00 77 03/04/18 20:00 97.9 79 20 105/71 (82) 99 97.9 03/04/18 16:00 98.0 70 18 108/62 (77) 98 98.0 03/04/18 16:00 65 03/04/18 15:53 97.4 03/04/18 13:15 67 12 105/66 100 Room Air 03/04/18 13:00 67 12 89/51 100 Simple Mask 6 03/04/18 12:55 97.4 69 12 89/51 100 Simple Mask 6 97.4 03/04/18 12:55 209.5 72 18 100 03/04/18 12:54 209.1 71 16 100 03/04/18 12:53 97.4 71 12 90/53 100 Simple Mask 6 97.4 03/04/18 12:00 69 03/04/18 12:00 97.7 69 18 109/63 (78) 98 97.7 03/04/18 11:17 96.9 Intake and Output 03/04/18 03/05/18 19:00 07:00 Intake Total 980 ml 1791 ml Output Total 1800 ml 1800 ml Balance -820 ml -9 ml Intake Oral 480 ml IV Total 500 ml 1791 ml Output Urine Total 1800 ml 1800 ml # Voids 2 Laboratory Tests 03/05/18 08:30: White Blood Count 2.9L, Red Blood Count 2.80L, Hemoglobin 9.3L, Hematocrit 27.2L , Mean Corpuscular Volume 97, Mean Corpuscular Hemoglobin 33.3H, Mean Corpuscular Hemoglobin Concent 34.3, Red Cell Distribution Width 18.2H, Platelet Count 56#L, Mean Platelet Volume 7.2, Neutrophils (%) (Auto) , Lymphocytes (%) (Auto) , Monocytes (%) (Auto) , Eosinophils (%) (Auto) , Basophils (%) (Auto) , Neutrophils % (Manual) [Pending], Lymphocytes % (Manual) [Pending], Platelet Estimate [Pending], Platelet Morphology [Pending], Prothrombin Time 15.2H, Prothromb Time International Ratio 1.5H, Activated Partial Thromboplast Time 32, Sodium Level 142, Potassium Level 3.9, Chloride Level 105, Carbon Dioxide Level 30, Anion Gap 7, Blood Urea Nitrogen 6L, Creatinine 0.8, Estimat Glomerular Filtration Rate > 60, Glucose Level 151H, Calcium Level 8.2L Height (Feet): 6 Height (Inches): 1.00 Weight (Pounds): 178 Dalia Marshall MD Mar 05, 2018 10:32
--- NOTE | 2018-03-05 11:15 | Procedure Note ---
DATE OF PROCEDURE: 03/05/2018 SURGEON: Santiago Sandoval M.D. REFERRING PHYSICIAN: Dalia Marshall M.D. PROCEDURE: Attempted partial colonoscopy. INSTRUMENT: Olympus adult flexible colonoscope. INDICATION: GI bleeding. The procedure, risks, benefits, and possible consequences, including hemorrhage, aspiration, perforation and infection, and alternative treatments, were explained to the patient/legal guardian by Dr. Santiago Sandoval and the patient/legal guardian understood and accepted these risks. DESCRIPTION OF PROCEDURE: After informed consent was obtained and the patient was adequately sedated, first rectal exam was performed which was normal. Then, the scope was advanced from the rectum into mid transverse colon. Given poor prep, we could not advance the scope beyond this point. This examination was very limited given the patient's prep was bad, but we could not see any obvious active bleeding. There was no blood or blood products seen in this examination up to the mid transverse colon that we advanced the scope. Of note, the patient mentioned that he had bright red blood per rectum this morning, but we could not see any blood in the colon at this time. Retroflexion of rectum showed evidence of medium-sized internal hemorrhoids. SUMMARY OF FINDINGS: 1. Incomplete colonoscopy examination given poor prep. 2. Internal hemorrhoids. RECOMMENDATIONS: At this time, there is no evidence of any active GI bleeding. The patient had an endoscopy yesterday and also partial colonoscopy today without any obvious bleeding. The patient needs to get a workup of anemia for other causes of anemia rather than GI bleeding. The patient needs to have documented bleeding by the nurses. He mentioned that he had bleeding, but the nurses have to document that and see if actually they see blood in his stool. Meanwhile, we will monitor his hemoglobin and hematocrit. Transfuse as needed. The patient needs to follow with Hematology/Oncology. I want to thank Dr. Marshall for this kind referral. Santiago Sandoval M.D. DR: Ba JOB#: [id number] CC: Dalia Marshall M.D.; Fax#: [phone]
--- NOTE | 2018-03-05 15:06 | Infectious Diseases Prog Note ---
Assessment/Plan Problems: (1) Hepatitis B virus infection Assessment & Plan: chronic carrier , on tenofovir for chronic suppression to prevent accelerated liver damage from alpha 1 antitrypsin deficiency (2) Dyxzm-0-trhhsbychkm deficiency Assessment & Plan: continue supportive care , management as per GI and pulmonary (3) Rectal bleeding Assessment & Plan: monitor H/H, transfuse as needed , GI is following (4) Syphilis Assessment & Plan: due to old infection which he was treated for in the past with low titer no 1:4 . no need for treatment at this point. follow RPR level in three months (5) Pancytopenia, acquired Assessment & Plan: with low CD4 counts suspect bone marrow pathology or liver cirrhosis related . follow up with hematology Subjective Constitutional: Reports: no symptoms HEENT: Reports: no symptoms Respiratory: Reports: no symptoms Breasts: Reports: no symptoms Cardiovascular: Reports: no symptoms Gastrointestinal/Abdominal: Reports: diarrhea, blood in stool, bloating Genitourinary: Reports: no symptoms Neurologic: Reports: no symptoms Psychiatric: Reports: no symptoms Skin: Reports: no symptoms Endocrine: Reports: no symptoms Hematologic: Reports: no symptoms Musculoskeletal: Reports: no symptoms Allergies: Coded Allergies: ADHESIVE TAPE (Verified Allergy, Unknown, 11/13/17) BEE VENOM PROTEIN (HONEY BEE) (Verified Allergy, Unknown, 11/13/17) PENICILLINS (Verified Allergy, Unknown, 11/13/17) Objective Vital Signs Last 24 Hour Vital Signs Date Time Temp Pulse Resp B/P (MAP) Pulse Ox O2 Delivery O2 Flow Rate FiO2 03/05/18 13:55 97.5 03/05/18 13:25 97.5 03/05/18 12:00 97.5 77 18 114/69 (84) 95 97.5 03/05/18 10:03 207.5 77 18 100 03/05/18 10:02 207.5 71 18 100 03/05/18 09:56 98.0 69 14 94/53 100 Nasal Cannula 3 98.0 03/05/18 09:41 72 14 92/48 100 Simple Mask 6 03/05/18 09:36 69 13 89/47 100 Simple Mask 6 03/05/18 09:31 97.5 71 18 89/50 100 Simple Mask 6 97.5 03/05/18 09:00 Room Air 03/05/18 08:51 97.8 03/05/18 08:00 98.1 88 18 114/74 (87) 97 98.1 03/05/18 07:45 86 20 Room Air 21 03/05/18 04:00 77 03/05/18 04:00 97.8 79 18 102/62 (75) 99 97.8 03/05/18 00:00 98.1 83 20 101/67 (78) 99 98.1 03/05/18 00:00 93 03/04/18 21:00 Room Air 03/04/18 20:30 78 16 Room Air 21 03/04/18 20:00 77 03/04/18 20:00 97.9 79 20 105/71 (82) 99 97.9 03/04/18 16:00 98.0 70 18 108/62 (77) 98 98.0 03/04/18 16:00 65 03/04/18 15:53 97.4 Height (Feet): 6 Height (Inches): 1.00 Weight (Pounds): 178 General Appearance: WD/WN, no acute distress HEENT: normocephalic, atraumatic, anicteric, mucous membranes moist, PERRL, pharynx normal, supple, no JVD Respiratory/Chest: chest wall non-tender, lungs clear, normal breath sounds, no respiratory distress, no accessory muscle use Cardiovascular: normal peripheral pulses, normal rate, regular rhythm, no gallop/murmur, no JVD Abdomen: normal bowel sounds, no organomegaly, no mass, no scars, distended Extremities: no cyanosis, no clubbing Skin: no rash, no lesions, no ulcers Neurologic/Psychiatric: alert, oriented x 3, responsive Lymphatic: no neck adenopathy, no groin adenopathy Musculoskeletal: normal muscle bulk, no effusion Laboratory Tests Test 03/05/18 08:30 White Blood Count 2.9 K/UL (4.8-10.8) L Red Blood Count 2.80 M/UL (4.70-6.10) L Hemoglobin 9.3 G/DL (14.2-18.0) L Hematocrit 27.2 % (42.0-52.0) L Mean Corpuscular Volume 97 FL (80-99) Mean Corpuscular Hemoglobin 33.3 PG (27.0-31.0) H Mean Corpuscular Hemoglobin Concent 34.3 G/DL (32.0-36.0) Red Cell Distribution Width 18.2 % (11.6-14.8) H Platelet Count 56 K/UL (150-450) #L Mean Platelet Volume 7.2 FL (6.5-10.1) Neutrophils (%) (Auto) % (45.0-75.0) Lymphocytes (%) (Auto) % (20.0-45.0) Monocytes (%) (Auto) % (1.0-10.0) Eosinophils (%) (Auto) % (0.0-3.0) Basophils (%) (Auto) % (0.0-2.0) Differential Total Cells Counted 100 Neutrophils % (Manual) 78 % (45-75) H Lymphocytes % (Manual) 18 % (20-45) L Monocytes % (Manual) 3 % (1-10) Eosinophils % (Manual) 1 % (0-3) Basophils % (Manual) 0 % (0-2) Band Neutrophils 0 % (0-8) Platelet Estimate Decreased L Platelet Morphology Normal Hypochromasia 2+ Anisocytosis 2+ Spherocytes 2+ Prothrombin Time 15.2 SEC (9.30-11.50) H Prothromb Time International Ratio 1.5 (0.9-1.1) H Activated Partial Thromboplast Time 32 SEC (23-33) Sodium Level 142 MMOL/L (136-145) Potassium Level 3.9 MMOL/L (3.5-5.1) Chloride Level 105 MMOL/L (98-107) Carbon Dioxide Level 30 MMOL/L (21-32) Anion Gap 7 mmol/L (5-15) Blood Urea Nitrogen 6 mg/dL (7-18) L Creatinine 0.8 MG/DL (0.55-1.30) Estimat Glomerular Filtration Rate > 60 mL/min (>60) Glucose Level 151 MG/DL (74-106) H Calcium Level 8.2 MG/DL (8.5-10.1) L Current Medications Medications (Trade) Dose Ordered Sig/Roberto Route PRN Reason Start Time Stop Time Status Last Admin Dose Admin Acetaminophen (Tylenol) 650 mg Q4H PRN ORAL Mild Pain (Pain Scale 1-3) 03/01/18 23:00 03/31/18 22:59 Albuterol/ Ipratropium (Albuterol/ Ipratropium) 3 ml PRN PRN HHN Shortness of Breath 03/01/18 23:00 03/06/18 22:59 Ciprofloxacin (Cipro 250mg tab) 250 mg EVERY 12 HOURS ORAL 03/02/18 21:00 03/09/18 20:59 03/04/18 20:32 Dextrose (Dextrose 50%) 25 ml STAT PRN IV Hypoglycemia 03/01/18 23:00 03/31/18 22:59 Dextrose (Dextrose 50%) 50 ml STAT PRN IV Hypoglycemia 03/01/18 23:00 03/31/18 22:59 Dextrose/Sodium Chloride 1,000 ml @ 100 mls/hr Q10H IV 03/01/18 23:57 03/31/18 23:56 03/04/18 21:58 Diphenhydramine HCl (Benadryl) 25 mg Q6H PRN ORAL Itching 03/04/18 22:15 04/03/18 22:14 03/05/18 13:30 Lorazepam (Ativan) 1 mg Q4H PRN ORAL For Anxiety 03/01/18 23:00 03/08/18 22:59 Metronidazole (Flagyl) 250 mg Q6HR ORAL 03/02/18 18:00 03/09/18 17:59 03/05/18 13:25 Morphine Sulfate (Morphine Sulfate) 4 mg Q4H PRN IVP Pain 4-10 03/02/18 13:30 03/09/18 13:29 03/05/18 13:25 Octreotide Acetate 500 mcg/ Sodium Chloride 500 ml @ 50 mls/hr Q10H IV 03/02/18 12:30 04/01/18 12:29 03/05/18 00:20 Ondansetron HCl (Zofran) 4 mg Q6H PRN IVP Nausea & Vomiting 03/01/18 23:00 03/31/18 22:59 03/05/18 13:25 Pantoprazole (Protonix) 40 mg EVERY 12 HOURS ORAL 03/02/18 21:00 04/01/18 20:59 03/04/18 20:33 Zolpidem Tartrate (Ambien) 5 mg DAILYPRN PRN ORAL Insomnia 03/01/18 23:00 03/08/18 22:59 03/05/18 00:28 Tobin Lezama M.D. Mar 05, 2018 15:06
[2018-03-06] VITALS: BP 107/68
[2018-03-06] MEDS: metroNIDAZOLE 250mg tab ORAL SCH ×3 (00:57→12:18)
[2018-03-06] MEDS: D5NS 1,000 ML IV SCH ×2 (03:57→13:57)
[2018-03-06 04:00] VITALS: BP 101/70
[2018-03-06] MEDS: Morphine Sulfate 4mg/ml Inj (IV USE ONLY) IVP PRN (04:29)
[2018-03-06] MEDS: Octreotide Acetate 500 MCG in Sodium Chloride 500ML 499 ML IV SCH (04:34)
[2018-03-06 07:40] LABS: HEMATOCRIT 21.8 % (42.0-52.0); HEMOGLOBIN 7.7 G/DL (14.2-18.0); MEAN CORPUSCULAR VOLUME 96 FL (80-99); PLATELET COUNT 43 K/UL (150-450); RED BLOOD COUNT 2.27 M/UL (4.70-6.10)
[2018-03-06 07:41] LABS: WHITE BLOOD COUNT 1.2 K/UL (4.8-10.8)
[2018-03-06 08:00] VITALS: BP 99/66
[2018-03-06 08:32] LABS: ALANINE AMINOTRANSFERASE 20 U/L (12-78); ALBUMIN 2.1 G/DL (3.4-5.0); ALBUMIN/GLOBULIN RATIO 0.7 (1.0-2.7); ALKALINE PHOSPHATASE 190 U/L (46-116); ASPARTATE AMINO TRANSFERASE 34 U/L (15-37); BILIRUBIN,TOTAL 2.1 MG/DL (0.2-1.0); BLOOD UREA NITROGEN 3 mg/dL (7-18); CALCIUM 7.8 MG/DL (8.5-10.1); CHLORIDE 109 MMOL/L (98-107); CREATININE 0.7 MG/DL (0.55-1.30); POTASSIUM 3.6 MMOL/L (3.5-5.1); SODIUM 142 MMOL/L (136-145)
[2018-03-06 08:33] LABS: BILIRUBIN,DIRECT 0.8 MG/DL (0.0-0.3)
[2018-03-06] MEDS ORDERED: TBO-Filgrastim 300 mcg/0.5ml SQ SCH (10:00)
[2018-03-06 10:25] LABS: CARBON DIOXIDE 28 MMOL/L (21-32)
[2018-03-06 10:33] LABS: ANION GAP 5 mmol/L (5-15)
--- NOTE | 2018-03-06 10:52 | General Progress Note ---
Assessment/Plan Assessment/Plan ASSESSMENT/RECOMMENDATIONS: #. Pancytopenia, potentially secondary to underlying hepatitis B, status postop TIPS, potentially due to endoscopy with Doppler study. Administer Neupogen. ANC goal above 1500. --> hepatitis panel reordered and does show Hepatitis B SAg++ --> imaging has been reviewed from before and shows cirrhosis --> gi for tips eval with egd --> given anc today is low give 1 DOSE NEUPOGEN 03/06 #. Coagulopathy, likely secondary to underlying liver disease, hepatitis B. ==> vit K prn if patient bleeding #. Acute GI bleed. inr is elevated #. Liver cirrhosis due to underlying hepatitis B, history of alcohol use. #. HIV/AIDS. ID service will follow. appreciate their recs #. Hepatitis B, chronic Subjective Constitutional: Denies: no symptoms, chills, diaphoresis, fever, malaise, weakness, other HEENT: Denies: no symptoms, eye pain, blurred vision, tearing, double vision, ear pain, ear discharge, nose pain, nose congestion, throat pain, throat swelling, mouth pain, mouth swelling, other Cardiovascular: Denies: no symptoms, chest pain, edema, irregular heart rate, lightheadedness, palpitations, syncope, other Respiratory: Denies: no symptoms, cough, orthopnea, shortness of breath, SOB with excertion, SOB at rest, sputum, stridor, wheezing, other Gastrointestinal/Abdominal: Denies: no symptoms, abdomen distended, abdominal pain, black stools, tarry stools, blood in stool, constipated, diarrhea, difficulty swallowing, nausea, poor appetite, poor fluid intake, rectal bleeding , vomiting, other Genitourinary: Denies: no symptoms, burning, discharge, frequency, flank pain, hematuria, incontinence, pain, urgency, other Neurologic/Psychiatric: Denies: no symptoms, anxiety, depressed, emotional problems, headache, numbness, paresthesia, pre-existing deficit, seizure, tingling, tremors, weakness, other Endocrine: Denies: no symptoms, excessive sweating, flushing, intolerance to cold, intolerance to heat, increased hunger, increased thirst, increased urine, unexplained weight gain, unexplained weight loss, other Hematologic/Lymphatic: Denies: no symptoms, anemia, easy bleeding, easy bruising, other Allergies: Coded Allergies: ADHESIVE TAPE (Verified Allergy, Unknown, 11/13/17) BEE VENOM PROTEIN (HONEY BEE) (Verified Allergy, Unknown, 11/13/17) PENICILLINS (Verified Allergy, Unknown, 11/13/17) Subjective sp egd and tips, in isolation room down the [place] of , no complaints, besides is tired Objective Last 24 Hour Vital Signs Date Time Temp Pulse Resp B/P (MAP) Pulse Ox O2 Delivery O2 Flow Rate FiO2 03/06/18 08:20 Room Air 03/06/18 08:00 98.2 72 18 99/66 (77) 100 98.2 03/06/18 04:00 97.0 78 20 101/70 (80) 97 97.0 03/06/18 04:00 81 03/06/18 00:00 88 03/06/18 00:00 97.0 96 20 107/68 (81) 99 97.0 03/05/18 21:00 Room Air 03/05/18 20:00 97.0 87 20 103/66 (78) 96 97.0 03/05/18 20:00 81 03/05/18 19:30 84 20 Room Air 21 03/05/18 18:06 98.1 03/05/18 17:36 98.1 03/05/18 16:00 82 03/05/18 16:00 98.1 86 18 113/77 (89) 96 98.1 03/05/18 13:25 97.5 03/05/18 12:00 97.5 77 18 114/69 (84) 95 97.5 03/05/18 12:00 84 Intake and Output 03/05/18 03/06/18 19:00 07:00 Intake Total 680 ml Output Total 800 ml 2000 ml Balance -120 ml -2000 ml Intake Oral 480 ml IV Total 200 ml Output Urine Total 800 ml 2000 ml # Voids 3 Laboratory Tests 03/06/18 07:15: White Blood Count 1.2#*L, Red Blood Count 2.27L, Hemoglobin 7.7L, Hematocrit 21.8L, Mean Corpuscular Volume 96, Mean Corpuscular Hemoglobin 33.9H, Mean Corpuscular Hemoglobin Concent 35.2, Red Cell Distribution Width 18.0H, Platelet Count 43L, Mean Platelet Volume 6.1L, Neutrophils (%) (Auto) , Lymphocytes (%) (Auto) , Monocytes (%) (Auto) , Eosinophils (%) (Auto) , Basophils (%) (Auto) , Differential Total Cells Counted 100, Neutrophils % ( Manual) 65, Lymphocytes % (Manual) 24, Monocytes % (Manual) 10, Eosinophils % ( Manual) 1, Basophils % (Manual) 0, Band Neutrophils 0, Platelet Estimate DecreasedL, Platelet Morphology Normal, Hypochromasia 1+, Anisocytosis 1+, Macrocytosis 1+, Sodium Level 142, Potassium Level 3.6, Chloride Level 109H, Carbon Dioxide Level 28, Anion Gap 5, Blood Urea Nitrogen 3L, Creatinine 0.7, Estimat Glomerular Filtration Rate > 60, Glucose Level 134H, Calcium Level 7.8L , Total Bilirubin 2.1H, Direct Bilirubin 0.8H, Aspartate Amino Transf (AST/SGOT ) 34, Alanine Aminotransferase (ALT/SGPT) 20, Alkaline Phosphatase 190H, Total Protein 5.0L, Albumin 2.1L, Globulin 2.9, Albumin/Globulin Ratio 0.7L Height (Feet): 6 Height (Inches): 1.00 Weight (Pounds): 178 General Appearance: alert EENT: PERRL/EOMI Neck: normal alignment Cardiovascular: regular rhythm Respiratory/Chest: lungs clear Abdomen: normal bowel sounds Extremities: normal range of motion Edema: 1+ Leg (L), 1+ Leg (R) Edema: mild edema Neurologic: no motor/sensory deficits Marshall Dhillon MD Mar 06, 2018 10:52
--- NOTE | 2018-03-06 11:11 | GI Progress Note ---
Assessment/Plan Problems: (1) Hepatitis B virus infection ICD Codes: B19.10 - Unspecified viral hepatitis B without hepatic coma SNOMED: 72932701 (2) HIV (human immunodeficiency virus infection) ICD Codes: B20 - Human immunodeficiency virus [HIV] disease SNOMED: 13671718 (3) Rectal bleeding ICD Codes: K62.5 - Hemorrhage of anus and rectum SNOMED: 11864650 (4) Cjtvs-5-deemzzoxbki deficiency ICD Codes: E88.01 - Oxjii-2-djbymmeiuvd deficiency SNOMED: 51665532 Status: unchanged Status Narrative Discussed with Dr. Sandoval. Assessment/Plan - Alpha-1- antitrypsin deficiency - Hepatitis B Carrier - Cirrhosis with - portal HTN - varicies - ascites - encephalopathy - coagulopathy - UGIB - Leukopenia - gallstones - Hep B positive >> outpatient tx SUMMARY OF FINDINGS: 1. Incomplete colonoscopy examination given poor prep. 2. Internal hemorrhoids. RECOMMENDATIONS: At this time, there is no evidence of any active GI bleeding. The patient had an endoscopy yesterday and also partial colonoscopy today without any obvious bleeding. The patient needs to get a workup of anemia for other causes of anemia rather than GI bleeding. The patient needs to have documented bleeding by the nurses. He mentioned that he had bleeding, but the nurses have to document that and see if actually they see blood in his stool. Meanwhile, we will monitor his hemoglobin and hematocrit. Transfuse as needed. The patient needs to follow with Hematology/Oncology. - duplex TIPPS for further evaluation of patentcy and flow (patent on ultrasound ) - check INR - may need FFP as well - Heme eval / Neupogen - abx - ppi BID - fu labs The patient was seen and examined at bedside and all new and available data was reviewed in the patients chart. I agree with the above findings, impression and plan. (Patient seen earlier today. Signature stamp does not reflect patient encounter time.). - Santiago Sandoval MD Subjective Gastrointestinal/Abdominal: Reports: no symptoms Objective Last 24 Hour Vital Signs Date Time Temp Pulse Resp B/P (MAP) Pulse Ox O2 Delivery O2 Flow Rate FiO2 03/06/18 08:20 Room Air 03/06/18 08:00 98.2 72 18 99/66 (77) 100 98.2 03/06/18 04:00 97.0 78 20 101/70 (80) 97 97.0 03/06/18 04:00 81 03/06/18 00:00 88 03/06/18 00:00 97.0 96 20 107/68 (81) 99 97.0 03/05/18 21:00 Room Air 03/05/18 20:00 97.0 87 20 103/66 (78) 96 97.0 03/05/18 20:00 81 03/05/18 19:30 84 20 Room Air 21 03/05/18 18:06 98.1 03/05/18 17:36 98.1 03/05/18 16:00 82 03/05/18 16:00 98.1 86 18 113/77 (89) 96 98.1 03/05/18 13:25 97.5 03/05/18 12:00 97.5 77 18 114/69 (84) 95 97.5 03/05/18 12:00 84 Intake and Output 03/05/18 03/06/18 19:00 07:00 Intake Total 680 ml Output Total 800 ml 2000 ml Balance -120 ml -2000 ml Intake Oral 480 ml IV Total 200 ml Output Urine Total 800 ml 2000 ml # Voids 3 Laboratory Tests Test 03/06/18 07:15 White Blood Count 1.2 K/UL (4.8-10.8) #*L Red Blood Count 2.27 M/UL (4.70-6.10) L Hemoglobin 7.7 G/DL (14.2-18.0) L Hematocrit 21.8 % (42.0-52.0) L Mean Corpuscular Volume 96 FL (80-99) Mean Corpuscular Hemoglobin 33.9 PG (27.0-31.0) H Mean Corpuscular Hemoglobin Concent 35.2 G/DL (32.0-36.0) Red Cell Distribution Width 18.0 % (11.6-14.8) H Platelet Count 43 K/UL (150-450) L Mean Platelet Volume 6.1 FL (6.5-10.1) L Neutrophils (%) (Auto) % (45.0-75.0) Lymphocytes (%) (Auto) % (20.0-45.0) Monocytes (%) (Auto) % (1.0-10.0) Eosinophils (%) (Auto) % (0.0-3.0) Basophils (%) (Auto) % (0.0-2.0) Differential Total Cells Counted 100 Neutrophils % (Manual) 65 % (45-75) Lymphocytes % (Manual) 24 % (20-45) Monocytes % (Manual) 10 % (1-10) Eosinophils % (Manual) 1 % (0-3) Basophils % (Manual) 0 % (0-2) Band Neutrophils 0 % (0-8) Platelet Estimate Decreased L Platelet Morphology Normal Hypochromasia 1+ Anisocytosis 1+ Macrocytosis 1+ Sodium Level 142 MMOL/L (136-145) Potassium Level 3.6 MMOL/L (3.5-5.1) Chloride Level 109 MMOL/L (98-107) H Carbon Dioxide Level 28 MMOL/L (21-32) Anion Gap 5 mmol/L (5-15) Blood Urea Nitrogen 3 mg/dL (7-18) L Creatinine 0.7 MG/DL (0.55-1.30) Estimat Glomerular Filtration Rate > 60 mL/min (>60) Glucose Level 134 MG/DL (74-106) H Calcium Level 7.8 MG/DL (8.5-10.1) L Total Bilirubin 2.1 MG/DL (0.2-1.0) H Direct Bilirubin 0.8 MG/DL (0.0-0.3) H Aspartate Amino Transf (AST/SGOT) 34 U/L (15-37) Alanine Aminotransferase (ALT/SGPT) 20 U/L (12-78) Alkaline Phosphatase 190 U/L (46-116) H Total Protein 5.0 G/DL (6.4-8.2) L Albumin 2.1 G/DL (3.4-5.0) L Globulin 2.9 g/dL Albumin/Globulin Ratio 0.7 (1.0-2.7) L Height (Feet): 6 Height (Inches): 1.00 Weight (Pounds): 178 General Appearance: WD/WN, no apparent distress, alert Cardiovascular: normal rate Respiratory/Chest: normal breath sounds, no respiratory distress Abdominal Exam: normal bowel sounds, non tender, soft Extremities: normal range of motion, non-tender Sada Sanders GUT [employer]PER Mar 06, 2018 11:11
[2018-03-06 12:00] VITALS: BP 105/74
[2018-03-06] MEDS ORDERED: D5NS 1000ml IV ONE (14:24)
--- NOTE | 2018-03-07 10:02 | Discharge Summary ---
Discharge Summary Discharge Summary _ DATE OF ADMISSION: 03/01/2018 DATE OF DISCHARGE: 03/06/2018 CONSULTANTS: Dr. Santiago Dhillon BRIEF HOSPITAL COURSE: Patient is a 37-year-old male with history of hepatitis B, esophageal varices, cirrhosis secondary to alpha-1 antitrypsin deficiency, presented to ED complaining of vomitus of gross arsh red blood at least 3-5 times prior to evaluation at the emergency room. In addition, he was complaining of hematochezia at least 3 times, described to be pure red blood. On evaluation at ED, there was red blood at the anal area on examination. Hemoglobin level was 9.1, hematocrit was 25, platelet was 55. He was given 80 mg of Protonix IV. Patient has high risk of GI bleed due to history of varices , he had a recent upper GI evaluation during last admission, with normal EGD. He was admitted to telemetry for evaluation of GI bleed. He was seen by GI. He was advised need for endoscopy. However needed to be optimized medically prior to procedure. Platelet counts were low and INR was elevated. He was given FFP and platelet transfusion. Patient had pancytopenia. WBC went down to 1.2. He was seen by anthropology and archeology instructor. He was started on Neupogen. ANC goal above 1500 On 03/04/2018, he underwent upper endoscopy with biopsy. Patient had no evidence of any gastric esophageal variances. No evidence of any upper GI bleed. There was one small polyp in the prepyloric region which was biopsied. On 03/05/2018, he underwent colonoscopy. Given poor prep unable to advance the scope beyond the midtransverse colon. There was no evidence of any active GI bleed. Patient has chronic hepatitis B infection on chronic suppression with tenofovir. He was followed by infectious disease specialist. Syphilis was positive from old infection which was treated in the past. Titer was low. No current need for treatment. HIV PCR still pending. Absolute CD4 count 160. Social service was called to evaluate for home safety. Diet was advanced and was tolerating diet. He was cleared for discharge home. FINAL DIAGNOSES: Acute on chronic upper GI bleed Liver cirrhosis Negative HIV Pancytopenia Alpha-1 antitrypsin deficiency, familial (reported by patient) Status post Neupogen injection Status post EGD and TIPS function assessment Status post colonoscopy Hepatitis B infection Coagulopathy, likely secondary to underlying liver disease DISPOSITION: Patient was discharged home with home health. DISCHARGE MEDICATIONS: Refer to Discharge Medication List. DISCHARGE INSTRUCTIONS: Follow up with PCP in a week. I have been assigned to dictate discharge summary on this account, and I was not involved in the patient's management. Leila Mccabe NP Mar 07, 2018 10:02
== END 2018-03-06 14:25 | disposition home or self-care (01) | DRG 253 ==
LOC: EMR 21:32 → OBSVTOIN 21:37 → 2E 21:37 → EDBEDREQ 22:00 → 2E 03-03 06:13
PROC: 30233K1 Transfusion of Nonautologous Frozen Plasma into Peripheral Vein, Percutaneous Approach (ICD-10-PCS; 2018-03-03)
PROC: 30233R1 Transfusion of Nonautologous Platelets into Peripheral Vein, Percutaneous Approach (ICD-10-PCS; 2018-03-04)
PROC: 0DB78ZZ Excision of Stomach, Pylorus, Via Natural or Artificial Opening Endoscopic (ICD-10-PCS; principal; 2018-03-04 12:34)
PROC: 0DJD8ZZ Inspection of Lower Intestinal Tract, Via Natural or Artificial Opening Endoscopic (ICD-10-PCS; 2018-03-05)
DX: K92.2 Gastrointestinal hemorrhage, unspecified (principal); D61.818 Other pancytopenia; D68.4 Acquired coagulation factor deficiency; E88.01 Alpha-1-antitrypsin deficiency; K74.69 Other cirrhosis of liver; Z88.0 Allergy status to penicillin; B18.1 Chronic viral hepatitis B without delta-agent; K64.8 Other hemorrhoids; K31.7 Polyp of stomach and duodenum; K80.80 Other cholelithiasis without obstruction; Z91.030 Bee allergy status
CPT/HCPCS: 36415; 76705; 80048; 80053; 82105; 82248; 82728; 83036; 83540; 83550; 83690; 84443; 85007; 85025; 85610; 85730; 86360; 86592; 86703; 86705; 86709; 86803; 86850; 86870; 86900; 86901; 86920; 86927; 87340; 87536; 93005; 93970; 94003; 94150; 94664; 96374; 96375; 99285; J2405; J8499

== ENCOUNTER 2018-06-27 23:48 | Emergency (ER) | payer MEDICAID ==
[~2018-06-27] VITALS: Ht 182.9 cm; Wt 81.6 kg
--- NOTE | 2018-06-28 | NUR ---
ED Nurse Note: Patient c/o bright red blood emesis and bright red blood from rectum since this morning. Denies trauma. Patient has distention in abdomen. Pt AO4. NAD. VSS. Attached to monitor.
--- NOTE | 2018-06-28 00:23 | NUR ---
ED Nurse Note: IV access established. Unable to draw blood. ERMD and charge aware.
[2018-06-28 00:37] VITALS: BP 134/93
[2018-06-28] MEDS ORDERED: Pantoprazole Inj IVP ONE (01:00)
[2018-06-28 01:01] LABS: HEMATOCRIT 28.8 % (42.0-52.0); HEMOGLOBIN 9.6 G/DL (14.2-18.0); MEAN CORPUSCULAR VOLUME 87 FL (80-99); PLATELET COUNT 59 K/UL (150-450); RED BLOOD COUNT 3.32 M/UL (4.70-6.10); RED CELL DISTRIBUTION WIDTH 13.6 % (11.6-14.8); WHITE BLOOD COUNT 3.6 K/UL (4.8-10.8)
[2018-06-28 01:14] LABS: INR 1.2 (0.9-1.1)
[2018-06-28 01:18] LABS: ANION GAP 9 mmol/L (5-15); BLOOD UREA NITROGEN 5 mg/dL (7-18); CALCIUM 8.4 MG/DL (8.5-10.1); CARBON DIOXIDE 27 MMOL/L (21-32); CHLORIDE 106 MMOL/L (98-107); CREATININE 0.8 MG/DL (0.55-1.30); POTASSIUM 2.9 MMOL/L (3.5-5.1); SODIUM 142 MMOL/L (136-145)
[2018-06-28 01:28] LABS: ALANINE AMINOTRANSFERASE 25 U/L (12-78); ALBUMIN 2.7 G/DL (3.4-5.0); ALBUMIN/GLOBULIN RATIO 0.8 (1.0-2.7); ALKALINE PHOSPHATASE 279 U/L (46-116); ASPARTATE AMINO TRANSFERASE 45 U/L (15-37); BILIRUBIN,TOTAL 1.9 MG/DL (0.2-1.0)
[2018-06-28 01:39] LABS: BILIRUBIN,DIRECT 0.9 MG/DL (0.0-0.3)
--- NOTE | 2018-06-28 01:41 | NUR ---
ED Nurse Note: Patient able to swallow pills without difficulty. Denies nausea. Presents with no vomitting.
--- NOTE | 2018-06-28 02:10 | NUR ---
ED Nurse Note: Urine sample collected; sent down to lab.
[2018-06-28 02:16] LABS: APPEARANCE,URINE CLEAR; BILIRUBIN, URINE NEGATIVE (NEGATIVE); GLUCOSE, URINE (UA) NEGATIVE (NEGATIVE); KETONES,URINE NEGATIVE (NEGATIVE); LEUKOCYTE ESTERASE ,URINE 1+ (NEGATIVE); NITRITE,URINE NEGATIVE (NEGATIVE); PH,URINE 7 (4.5-8.0); PROTEIN,URINE NEGATIVE (NEGATIVE); UROBILINOGEN,URINE NORMAL MG/DL (0.0-1.0)
--- NOTE | 2018-06-28 02:16 | NUR ---
ED Nurse Note: Imaging at bedside
[2018-06-28 02:26] LABS: COLOR,URINE YELLOW
[2018-06-28] MEDS ORDERED: PROTONIX40 MG ORAL (02:26)
--- NOTE | 2018-06-28 02:27 | Emergency Room Report ---
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 Onset for almost 24 hours now. In addition, he was complaining of hematochezia at least 3 times, described to be pure red blood. Also complaining of abdominal pain and distention. Pain is 9 out of 10. Diffuse in nature. Patient said that he had recent variceal banding and tips procedure. Allergies: Coded Allergies: ADHESIVE TAPE (Verified Allergy, Unknown, 11/13/17) BEE VENOM PROTEIN (HONEY BEE) (Verified Allergy, Unknown, 11/13/17) PENICILLINS (Verified Allergy, Unknown, 11/13/17) Nursing Documentation-[facility] Past Medical History: No History, Except For Hx Cardiac Problems: No Hx Cancer: No Hx Gastrointestinal Problems: Yes - alpha 1 antitrypsin, varices, ascites, enlarged spleen Hx Neurological Problems: No Review of Systems Eye: Denies: eye pain, blurred vision ENT: Denies: ear pain, nose congestion, throat swelling Respiratory: Denies: cough, shortness of breath Cardiovascular: Denies: chest pain, palpitations Gastrointestinal: Reports: abdominal pain, nausea, vomiting, hematemesis; Denies: diarrhea Musculoskeletal: Denies: back pain, joint pain Skin: Denies: rash Neurological: Denies: headache, numbness Endocrine: Denies: increased thirst, increased urine Hematologic/Lymphatic: Denies: easy bruising All Other Systems: negative except mentioned in HPI Physical Exam Vital Signs Date Time Temp Pulse Resp B/P (MAP) Pulse Ox O2 Delivery O2 Flow Rate FiO2 06/27/18 23:50 98.1 98 20 140/87 100 Room Air vitals normal Sp02 EP Interpretation: reviewed, normal General Appearance: well appearing, no apparent distress, alert Head: normocephalic, atraumatic Eyes: bilateral eye PERRL, bilateral eye EOMI ENT: hearing grossly normal, normal pharynx Neck: full range of motion, supple, no meningismus Respiratory: chest non-tender, lungs clear, normal breath sounds Cardiovascular #1: regular rate, rhythm, no murmur Gastrointestinal: normal bowel sounds, no mass, no organomegaly, no bruit, non- distended, tenderness - Diffuse Rectal: other - Rectal with red blood at the anus. Musculoskeletal: back normal, gait/station normal, normal range of motion Neurologic: alert, oriented x3 Psychiatric: anxious Skin: warm/dry Medical Decision Making Diagnostic Impression: Primary Impression: Hematemesis with nausea Additional Impressions: Hematochezia Anemia Qualified Codes: D64.9 - Anemia, unspecified Hypokalemia Pancytopenia, acquired ER Course Patient presents with complaint of amount of emesis and hematochezia. He claimed that he has soft tissue varices with banding and TIPS procedure. This is similar to last to admission. His history is incongruent with the last to EGD and colonoscopy. EGD did not show any esophageal varices. He did have some gastritis. His colonoscopy showing internal hemorrhoids. This would account for the red blood at the rectum. If he had esophageal bleeding, he would have melanotic instead. There is no vomiting or diarrhea here. He is tolerating by mouth. Since his hemoglobin is stable and at baseline, we'll discharge home. Lab Results Impression labs at baseline Chest X-Ray Diagnostic Results Chest X-Ray Diagnostic Results : Chest X-Ray Ordered: Yes # of Views/Limited/Complete: 1 View Indication: Other - gi bleed EP Interpretation: Yes Interpretation: no consolidation, no effusion, no pneumothorax, no acute cardiopulmonary disease Impression: No acute disease Electronically Signed by: Seven Sanders MD Last Vital Signs Date Time Temp Pulse Resp B/P (MAP) Pulse Ox O2 Delivery O2 Flow Rate FiO2 06/28/18 00:39 99 20 Room Air 06/28/18 00:37 98.1 134/93 100 Status: improved Disposition: HOME, SELF-CARE Condition: Stable Scripts Pantoprazole* (PROTONIX*) 40 Mg Tablet. 40 MG ORAL DAILY, #30 TAB Prov: Seven Sanders MD 06/28/18 Referrals: NOT CHOSEN [facility]/,REFERRING (PCP) Additional Instructions: Follow-up with your doctor in a week. Return if symptom worsen. Seven Sanders MD Jun 28, 2018 02:27
[2018-06-28 02:35] VITALS: BP 134/93
--- NOTE | 2018-06-28 02:35 | NUR ---
ED Nurse Note: Patient cleared for discharge per ERMD. AO4. NAD. VSS. Patent given prescriptions and discharge instructions; veralized understanding. IV ID band removed. Patient ambulated out with all personal belongings with steady gait.
== END 2018-06-28 02:35 | disposition home or self-care (01) ==
LOC: EMR 23:59
DX: K92.0 Hematemesis (principal); Q04.8 Other specified congenital malformations of brain; D64.9 Anemia, unspecified; E87.6 Hypokalemia; D61.818 Other pancytopenia; Z88.0 Allergy status to penicillin; Z91.030 Bee allergy status; Z91.040 Latex allergy status
CPT/HCPCS: 36415; 71045; 80053; 80307; 81001; 82248; 85007; 85025; 85610; 85730; 86850; 86870; 86900; 86901; 96361; 96374; 99284; C9113; J8499